=== PATIENT | female | born 1955 | race Caucasian/White ===

== ENCOUNTER 2022-12-17 09:55 | Outpatient (CLI) | payer MEDICARE, BC, SELFPAY ==
--- NOTE | 2022-12-17 10:15 | CRLHL7_ITS ---
For Patients: As a result of the Century Cures Act, medical imaging exams and procedure reports are released immediately into your electronic medical record. You may view this report before your referring provider. If you have questions, please contact your health care provider. BILATERAL SCREENING MAMMOGRAM WITH COMPUTER-AIDED DETECTION AND TOMOSYNTHESIS TECHNIQUE: CC and MLO views were obtained. These mammographic images have been obtained using full-field digital technique. These mammographic images were interpreted with the benefit of computer-aided detection. Breast tomosynthesis was used in this interpretation. COMPARISON FILM: 07/31/21, 07/12/20, 03/01/19. FINDINGS: There are scattered areas of fibroglandular density. IMPRESSION: There is no radiographic evidence for malignancy. ASSESSMENT: BI-RADS Category 2: Benign RECOMMENDATION: Routine screening mammogram in 1 year. A lay language report of this examination will be provided to the patient. DARIUS SYKES M.D. Diagnostic Radiologist [email or web address] Transcribed: 12/17/2022, 5:[address]/Dictated by: Darius Sykes MD @ 12/17/2022 11:15:00 AM (Electronically Signed)
== END 2022-12-17 09:56 | disposition home or self-care (01) ==
PROVIDERS: PCP Family Medicine; Visit Provider Family Medicine
DX: Z12.31 Encounter for screening mammogram for malignant neoplasm of breast (principal)
CPT/HCPCS: 77063; 77067

== ENCOUNTER 2023-02-17 09:45 | Outpatient (RCR) | payer MEDICARE, BC, SELFPAY ==
--- NOTE | 2023-01-31 14:15 | PT.OPE ---
PT [facility] Out[facility] Eval PT [facility] Outpatient Eval Start: 01/29/23 09:28 Freq: Status: Active Protocol: Document 01/29/23 09:29 HN (Rec: 01/30/23 09:08 HN [id number]) E-signed By Bryanna Vazquez DPT Physical Therapy Outpatient Evaluation Insurance Information Insurance Name Blue Cross/Blue Shield Medical Diagnosis Lumbago with sciatica, right side ? M54.41 Treating Diagnosis M25. 551: Pain in right hip. M25. 651 for Stiffness of right hip Referring MD Dilan Navarro MD Subjective Subjective Patient is a 67 year old fe/ male with pain in R glute and radiating symptoms down lateral thigh to lateral knee. Patient denies mechanism of injury but reports symptoms may have began after long drive back from [place]. Patient reports symptoms are primarily on R but has mild symptoms on L. Patient describes pain and dull and sometimes burning and thigh pain and lateral frias pain. Aggravating factors: sitting 30 minute, nights waking up, lying on R, pain with stairs, pain with walking Easing Factors: digging in garden, ice, heat, tylenol Prior level of function: independent and unlimited with all ADLs and IADLs Current limitations: sitting 30 minute, nights waking up, lying on R, pain with stairs, pain with walking Red flags: denies hx of cancer , recent infection, numbness/ tingling, bowel/bladder changes Imaging: no imaging reported PMH: Hx of cervical spine pain 20+ years otherwise unremarkable Social History: retired, enjoys gardening, swimming, baking, biking, goes up to cabin for entire month of March Pain Comments Current: 11/22 Best: 010 Worst: 510 Current Work Status Retired Occupation Retired Precautions Treatment Precautions/Contraindications no precautions/ contraindications identified Weight Bearing Status Full Weight Bearing Therapy Limitations/Systems Review Not Limited Objective Other/Pertinent Objective Lumbar range of motion (% full range of motion) Flexion: 100 Extension: 100 Left sidebendin Right sidebendin Left rotation: 100 Right rotation: 100 Repeated flexion: no reproduction of symptoms Repeated extension: no reproduction of symptoms Hip range of motion is grossly intact with increased tenderness with external rotation of right hip Manual muscle testing: Hip flexion: 5/5 L , 5/5 R Hip abduction: 5/5 L , 4/5 R Hip adduction: 5/5 L , 4/5 R Hip extension: 5/5 L , 4/5 R Knee extension: 5/5 L , 5/5 R Knee flexion: 5/5 L , 5/5 R Special tests: Slump: negative bilaterally Straight leg raise: negative bilaterally LATASHA: reproduction of symptoms on R FADIR: negative bilaterally SCOUR: negative bilaterally Laslett cluster: negative Sensation/Reflexes: Patellar reflex: normal Joint mobility: lumbar mobility is normal with with PA mobilizations with no reproduction of symptoms Palpation: increased tenderness along R glute med/ piriformis, ITB with palpation , reproduction of symptoms Functional Test Performed & Score HOOS Score: 57.5 % Assessment Assessment/Impression Patient is a 67 year old with complaints of right sided hip pain and radiating symptoms down right LE. Patient demonstrates impaired mild decrease in hip strength, increased pain with lying on R side, prolonged sitting, and ascending/descending stairs, and pain with palpation consistent with R glute med tendinopathy with possible contributor from ITB. The impairments impact the patients tolerance with prolonged sitting, ambulation, ascending and descending stairs, and sleeping restfully . Patient will benefit from skilled physical therapy to address the impairments and activity limitations listed above. Prognostic factors include baseline strength, patient motivation and few comorbidities. Primary Functional Limitations Sitting, sleeping on R LE, ascending/descending stairs, ambulation Plan of Care Rehabilitation Potential Good Physical Therapy Goals Short term goals (4 weeks, ) 1. Patient will tolerate standing >60 minutes with no increase in pain order to complete ADLs. 2. Patient will report <3/10 pain in order to demonstrate decreased pain and disability related to symptoms. 3. Patient will demonstrate independence with HEP in order to manage symptoms independently at home. jail goals 12 weeks ( 04/23) 1. Patient will demonstrate HOOS score of 75% or above to demonstrate decrease pain and irritability related to symptoms. 2. Patient will reports less than 2 sleep disturbances due to hip pain per week to improve restful and restorative sleep 3. Patient will report <2/10 pain in order to demonstrate decreased pain and disability related to symptoms. 4. Patient will tolerate ascending/descending 1 flight of stairs with no increase in pain in order to return to prior level of function. Coordination/Communication With Referral Source Treatment Plan/Direct Interventions Joint Mobilization,Manual Therapy,Neuromuscular Re-ed, Self-Care/Home Management, Therapeutic Activities, Therapeutic Exercises,Traction (Mechanical) Frequency/Duration 1-2x/week for up to 12 weeks, patient will be gone march, unable to attend appointments Patient Will Be Discharged From Therapy Completion of LTG(s),Skills Plateau,Independent w/HEP Evaluation Billing Untimed Code Treatment Minutes 20 Complexity Low Certification Information Physician Comment/Change : Physician NPI Number #
== END 2023-03-24 16:01 | disposition home or self-care (01) ==
PROVIDERS: PCP Family Medicine; Visit Provider Physician Assistant Medical
DX: M54.41 Lumbago with sciatica, right side (principal); M25.551 Pain in right hip; M25.651 Stiffness of right hip, not elsewhere classified; Z51.89 Encounter for other specified aftercare
CPT/HCPCS: 97110; 97161

== ENCOUNTER 2023-04-29 07:30 | Outpatient (CLI) | payer MEDICARE, BC, SELFPAY | END 2023-04-29 07:31 | disposition home or self-care (01) | PROVIDERS: PCP Physician Assistant Medical; Visit Provider Family Medicine | DX: R53.83 Other fatigue (principal); L65.9 Nonscarring hair loss, unspecified; Z83.3 Family history of diabetes mellitus; Z13.21 Encounter for screening for nutritional disorder; Z13.29 Encounter for screening for other suspected endocrine disorder; R63.1 Polydipsia | CPT/HCPCS: 80053; 82306; 84439; 84443 ==

== ENCOUNTER 2023-07-29 09:45 | Outpatient (RCR) | payer MEDICARE, BC, SELFPAY ==
--- NOTE | 2023-07-01 15:43 | PT.OPEX ---
PT [facility] Outpatient Eval PT [facility] Outpatient Eval Start: 07/01/23 07:48 Freq: Status: Active Protocol: Document 07/01/23 07:48 AMS (Rec: 07/01/23 15:39 AMS [id number]) E-signed By Breanna Otero PT Physical Therapy Outpatient Evaluation Insurance Information Recert Due Date 09/24/23 Insurance Name Medicare B,Blue Cross/Blue Shield Medical Diagnosis Right knee osteoarthritis Treating Diagnosis Right knee pain Difficulty walking Muscle weakness Referring MD Ronny Webb Freedom Xiao is a new patient in my office today. She is a pleasant 67yr old female. Presents with right knee pain. She states she has had pain developing over the medial aspect of the right knee for 1 month. Worsening with increased activities. Relieved with rest. No numbness or tingling. No specific traumatic event. She is inquiring about possible physical therapy referral. - Ronny Webb, 06/10/23, confirmed by patient Patient presents to physical therapy with one-year history of bilateral knee pain. It got worse around 2 months ago in her right knee gradually, but no injury or change in routine at this time. She had X-rays done here at [facility], which showed medial compartment osteoarthritis. She does not recall any history of knee injury. Endorses clicking in knee, but no significant locking or catching. She feels like she has to concentrate to walk normally due to pain. She localizes the pain to the medial right knee and sometimes radiates up into quad and down into anterior leg. This impacts her sleep at night/getting comfortable. Denies numbness or tingling. Easing factors include ibuprofen for sleep and icing. Past medical medical history significant for right-sided sciatica 6 months ago, which she was treated for here and resolved for the most part. She still does these exercises regularly (side stepping, bridges, and clamshells). She has also tried the chiropractor, which did not provide lasting relief for her knee. Current exercise includes swimming 1x/week, but would like to get to 5x/week. Freestyle and backstroke variations do not bother her knee, but sidestroke does with whip kick (pain will last into next day after doing this ). Functional limitations/ aggravating factors include walking more than a few steps, swimming sidestroke, kneeling , climbing up and down stairs, squatting, and standing longer periods. She would like to avoid knee replacement if possible. Her goals are to be pain-free and improve her gait . Pain Comments 6/10 with walking, 9/10 at worst 0/10 at best Date of Last Physician Visit 06/10/23 Current Work Status Retired Preferred Name Ninoska Precautions Treatment Precautions/Contraindications None Objective Other/Pertinent Objective GAIT ASSESSMENT: Ambulates with mild genu varum on right > left, heel-toe gait, and mild antalgic nature. No gaid aid. OBSERVATION: Swelling: Sweep test - bilaterally; potentially mild swelling distal to joint line bilaterally No bruising noted. FUNCTIONAL MOBILITY Double leg squat: Pain at 90 degrees in medial knee KNEE ROM R: 0-0-140 L: 0-0-140 HIP ROM Within normal limits and pain- free LLE MMT: Hip flexion: R 5/5 L 5/5 Hip abduction: R 4+/5 L 4/5 Hip extension: R 4+/5 L 4/5 Knee flexion: R 5/5 L 5/5 Knee extension: R 5/5 L 5/5 END RANGE QUAD CONTROL Straight leg raise: To 90 deg, pain in medial knee on right SPECIAL TESTS Knee Ligamentous: -Varus 0: - -Varus 30: - -Valgus 0: - -Valgus 30: - Knee Meniscus: -Deep Knee Bend: + right -Knee Hyperextension: - -Du?s: + right -Joint Line Palpation: + right JOINT MOBILITY/PALPATION Tenderness to palpation along medial and lateral joint lines on right, none on left. TTP to proximal central quad on right. TX: Patient was educated on anatomy, physiology as it relates to current condition and HEP with use of handout/ [place]. Patient verbalizes understanding and agrees with POC/goals Education: -Soreness rules with goal of symptoms returning to baseline within 24 hours and that evening -Discussed benefit of comfortable, non-impact forms of aerobic exercise that pt enjoys and do not aggravate knee (stationary bike, swimming freestyle/backstroke, etc) Patient was instructed in the following exercises to improve strength, tissue tolerance, and/or mobility with verbal/ tactile cues as needed: Access Code: [email or web address] URL: [email or web address] Date: 07/01/2023 Prepared by: Breanna Otero Exercises - Clamshell with Resistance - 1 x daily - 4 x weekly - 3 sets - 10-12 reps - Supine Double Leg Bridge on Box - 1 x daily - 4 x weekly - 3 sets - 10-12 reps - Wall Quarter Squat - 1 x daily - 4 x weekly - 3 sets - 30-45 seconds hold -Also trialed 4 step ups x 10 reps (increased knee pain 7/ 10) and standing DL RDL with 9 lb kettlebell (increased neck discomfort) Functional Test Performed & Score LEFS: 34/80 = 42.5% Assessment Assessment/Impression Pt is a 67 -year-old female who presents with concerns of worsening chronic right knee pain and moderate severity and irritability. Signs and symptoms are likely indicating / consistent with right knee osteoarthritis with potential meniscal involvement. On exam, patient also demonstrates notable objective findings including pain with end-range knee flexion, impaired gait, pain with palpation to medial joint line, and decreased strength, leading to difficulties with walking more than a few steps, swimming sidestroke, kneeling, climbing up and down stairs, squatting , and standing longer periods. Pt's pain is primarily with weightbearing activities. Discussed role of physical therapy given nature and degree of symptoms and other treatment options if indicated in the future. Patient is appropriate for skilled physical therapy services to address the above deficits. Pt was agreeable with plan of care and goals established. Primary Functional Limitations walking more than a few steps, swimming sidestroke, kneeling , climbing up and down stairs, squatting, and standing longer periods. Plan of Care Rehabilitation Potential Good Physical Therapy Goals In 2 sessions: Pt will demonstrate consistent HEP compliance to ensure progress in reaching established goals during course of care. In 8 sessions: Pt will be able to walk up to or >1 block with <2/10 pain. Pt will be able to stand >10 min with <2/10 pain for improved ability to perform recreational activities. Pt will be able to perform sidestroke with <2/10 pain. Coordination/Communication With Referral Source Treatment Plan/Direct Interventions Gait Training,Joint Mobilization,Manual Therapy, Neuromuscular Re-ed,Self-Care/ Home Management,Therapeutic Activities,Therapeutic Exercises Frequency/Duration 1x/week for 8-10 sessions Patient Will Be Discharged From Therapy Completion of LTG(s), Independent w/HEP, Independently Progressing Evaluation Billing Untimed Code Treatment Minutes 30 Complexity Low Certification Information Initial Certification Date 07/01/23 Ending Certification Date 09/24/23 Provider Signature Shows Agreement With POC & Medical Necessity Physician Signature & Date Requested Please Sign/Date Here Physician Comment/Change : Physician NPI Number #
== END 2023-07-29 17:00 | disposition home or self-care (01) ==
PROVIDERS: PCP Family Medicine; Visit Provider Orthopaedic Surgery Sports Medicine
DX: M17.11 Unilateral primary osteoarthritis, right knee (principal); Z51.89 Encounter for other specified aftercare
CPT/HCPCS: 97110; 97161

== ENCOUNTER 2023-12-09 15:22 | Outpatient (CLI) | payer MEDICARE, BC, SELFPAY ==
--- NOTE | 2023-12-09 16:00 | CT_ITS ---
Patient: KARINA REYNOLDS Facility:?[facility] Patient ID:?[id number] Site Patient ID:?[id number]. Site :?1955 Study:?CT-Chest WITHOUT-12/09/2023 3:52:24 PM Ordering Physician:MADDY Final Report: INDICATION: Chronic cough TECHNIQUE: CT chest without contrast. COMPARISON: 12/04/2023 chest x-ray FINDINGS: Lungs and pleura: Irregular and tree-in-bud nodularity, bronchial wall thickening, and scattered mucous plugging greatest in the right middle lobe and lingula. Findings are typical for chronic infection such as atypical mycobacterial infection. Heart and vasculature: Heart size is normal. Mild pericardial thickening. Thoracic aorta and pulmonary artery are normal in caliber. Lymph nodes/mediastinum: 17 mm low-density nodule along the inferior pole of the left thyroid lobe, possibly separate from the thyroid. Chest wall: No masses. Upper abdomen: Normal. Bones: Unremarkable for age. IMPRESSION: 1. Findings of chronic airways infection, particularly atypical mycobacterial infection. Consider six-month follow-up CT. 2. 17 mm low-density nodule adjacent to the inferior left thyroid gland. Recommend thyroid ultrasound. Please note that all CT scans at this facility use dose modulation, iterative reconstruction, and/or weight-based dosing when appropriate to reduce radiation dose to as low as reasonably achievable. Dictated by Kev Barraza MD @ 12/10/2023 10:26:47 AM Signed by:?Kev Barraza MD @12/10/2023 10:26:47 AM (Electronic Signature)
== END 2023-12-09 15:23 | disposition home or self-care (01) ==
LOC: CT 15:23
PROVIDERS: PCP Family Medicine; Visit Provider Physician Assistant Medical
DX: R05.3 Chronic cough (principal); E04.1 Nontoxic single thyroid nodule
CPT/HCPCS: 71250

== ENCOUNTER 2023-12-24 07:11 | Outpatient (CLI) | payer MEDICARE, BC, SELFPAY ==
--- NOTE | 2023-12-24 07:15 | US_ITS ---
Patient: KARINA REYNOLDS Facility:?[facility] Patient ID:?[id number] Site Patient ID:?[id number]. Site :?1955 Study:?US-Thyroid -12/24/2023 7:35:37 AM Ordering Physician:ALEXANDRO MCCLURE Final Report: CLINICAL HISTORY: Thyroid nodule TECHNIQUE: Miranda-scale and color Doppler images were acquired of the thyroid gland. FINDINGS: The right thyroid lobe measures 3.9 x 1.5 x 1.3 centimeters. The left thyroid lobe measures 5.3 x 1.4 x 1.3 centimeters. 1.7 centimeter simple appearing cyst left inferior thyroid lobe TR 1. IMPRESSION: Simple cyst in the left inferior thyroid lobe. ACR TI-RADS [email or web address] TR1: Benign No FNA TR2: Not Suspicious No FNA TR3: Mildly Suspicious FNA if greater than or equal to 2.5 cm Follow if greater than or equal to 1.5 cm TR4: Moderately Suspicious FNA if greater than or equal to 1.5 cm Follow if greater than or equal to 1 cm TR5: Highly Suspicious FNA if greater than or equal to 1 cm Follow if greater than or equal to 0.5 cm Dictated by Val Lopes MD @ 12/25/2023 7:01:32 AM Signed by:?Val Lopes MD @12/25/2023 7:01:32 AM (Electronic Signature)
--- OUTSIDE RECORDS SUMMARY | 2023-12-24 07:15 | XMS_ITS | Clinical Summary ---
Author Name Unknown Organization [facility] Address [address] [place] [address] Care Team Providers Care Systems Software Developer Name Role Phone Reina Trammell MD Primary Care Provider + [phone] Source Comments You are receiving this document as you are listed as the primary care provider,follow-up provider, or the patient has been referred to you for consultation.This is in compliance with the Medicare andMedicaid EHR Incentive Program,which states Providers who transition their patient to another setting of careor provider of care or refers their patient to another provider of care shouldprovide summary care record for each transition of care or referral. [facility] Allergies Active Allergy Reactions Criticality Noted Date Comments Sulfamethoxazole-Trimethoprim Rash 2016 Sulfa Antibiotics Rash 02/19/2016 Medications Medication Sig Dispensed Refills Start Date End Date Status Zinc Acetate 50 MG Take 50 mg by mouth as needed. 03/05/2016 Active Active Problems Problem Noted Date Diagnosed Date Apnea, sleep 02/19/2016 Immunizations Name Administration Dates Next Due Zoster (Zostavax) 11/28/2015 Social History Tobacco Use Types Packs/Day Years Used Date Smoking Tobacco: Never Smokeless Tobacco: Never Alcohol Use Standard Drinks/Week Comments Yes 4 (1 standard drink = 0.6 oz pur e alcohol) Sex and Gender Information Value Date Recorded Sex Assigned at Not on file Gender Identity Not on file Sexual Orientation Not on file Last Filed Vital Signs Vital Sign Reading Time Taken Comments Blood Pressure 116/72 12/16/2016 10:07 AM CDT Pulse 60 12/16/2016 10:07 AM CDT Temperature 36.4 ??C (97.5 ??F) 02/19/2016 10:53 AM C DT Respiratory Rate 16 12/16/2016 10:07 AM CDT Oxygen Saturation 97% 03/05/2016 2:14 PM CDT Inhaled Oxygen Concentration - - Weight 60.3 kg (133 lb) 12/16/2016 10:07 AM CDT Height - - Body Mass Index - - Plan of Treatment Upcoming Encounters Date Type Department Care Team (Late st Contact Info) Description 04/06/2024 10:00 AM CDT Appointment PULMONARY LAB AT [address] [address] 04/08/2024 10:45 AM CDT Appointment [facility] [address] [place] [address] [phone] Shobha Mcarthur MD [address] [facility] [address] [place] [id number] Health Maintenance Due Date Last Done Comments Colon Cancer Screening Plan Due 1955 Hep C Screening (Preventive Services) 1955 Mammogram 1955 Adult Preventive Visit 11/27/1971 DTaP/Tdap/Td (1 - Tdap) 1972 Cholesterol 1998 Zoster/Shingles (2 of 3) 01/23/2016 11/28/2015 Pneumococcal 65+ Yrs (1 - PCV) 2018 COVID-19 Vaccine (1 - 2022-2 4 season) 2023 Influenza (#1) 2023 HepA Aged Out No longer eligi ble based on patient's age to complete this topic HepB Aged Out No longer eligi ble based on patient's age to complete this topic Hib Aged Out No longer eligi ble based on patient's age to complete this topic IPV (Polio) Aged Out No longer eligi ble based on patient's age to complete this topic MCV4 Aged Out No longer eligi ble based on patient's age to complete this topic Care Teams Systems Software Developer Relationship Specialty Start [place] [id number] [place] [id number] PCP - General 03/05/16
== END 2023-12-24 07:12 | disposition home or self-care (01) ==
LOC: US 07:13
PROVIDERS: PCP Family Medicine; Visit Provider Physician Assistant Medical
DX: E04.1 Nontoxic single thyroid nodule (principal)
CPT/HCPCS: 76536

== ENCOUNTER 2024-02-23 07:36 | Outpatient (CLI) | payer MEDICARE, BC, SELFPAY ==
--- OUTSIDE RECORDS SUMMARY | 2024-02-23 07:38 | XMS_ITS | Patient Health Record ---
Author Organization [facility] Address [address] [place] [address] [address], [place] [address] Care Team Providers Care Automotive Service Director Name Role Phone JANET SONG Unavailable [phone] Reason For Referral No Information Medications Medication SIG (Take, Route, Fr equency, Duration) Notes Start Date End Date Status valACYclovir HCl 1 GM Take by mouth estiven y DAILY. Do not substitute. Oral 0 Active Problems Problem Type SNOMED Code ICD Code Onset Dates Problem Status W/U Status Risk Notes Problem Cervicalgia (81110661) Cervicalgia (M54.2) 2019 Active confirmed Cervicalgia flares up on occasion depending on activity Problem Abnormal findings on diagnostic imaging of skull and head (021929958) Abnormal findings on diagnostic imaging of skull and head, not elsewhere classified (R93.0) 2019 Active confirmed Abnormal findings on diagnostic imaging of skull and head, not elsewhere classified Problem Screening for cancer (74988365) Encounter for screening for malignant neoplasm of oral cavity (Z12.81) 2019 Active confirmed Encounter for screening for malignant neoplasm of oral cavity Problem Screening for cancer (22875417) Encounter for screening for malignant neoplasm of other sites (Z12.89) 2019 Active confirmed Encounter for screening for malignant neoplasm of other sites Problem Arthralgia of temporomandibular joint (30988926) Arthralgia of bilateral temporomandibul ar joint (M26.623) 2019 Active confirmed Arthralgia of bilateral temporomandibula r joint Problem Articular disc disorder of temporomandibular joint (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) 2019 Active confirmed Articular disc disorder of bilateral temporomandibula r joint improving Problem Muscle pain (49863332) Myalgia, unspecified site (M79.10) 2019 Active confirmed Encounters Encounter Location Date Provider Diagnosis [address] [place] [address] 12/08/2023 JANET SONG Cervicalgia M54.2 an d 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 M26.633 [place] [address] [place] [address] 12/25/2023 JANET SONG Cervicalgia M54.2 an d 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 M26.633 Assessments Encounter Date Diagnosis (ICD Code) Assessment Notes T reatment Notes Treatment Clinical Notes 12/08/2023 Cervicalgia (ICD-10 - M54.2) Cervicalgia flares up on occasion depending on activity 12/08/2023 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
--- OUTSIDE RECORDS SUMMARY | 2024-02-23 07:38 | XMS_ITS | Encounter Summary ---
[facility] Organization [facility] Address [address], [place] [address] Care Team Providers Care Senior Materials Scientist Name Role Phone Reina Trammell MD Primary Care Provider [phone] Reason for Referral * Procedure/Equipment (Routine) - Incomplete Specialty Diagnoses / Procedures Referred By Contac t Referred To Contact Diagnoses Cough, unspecified type Procedures XR Chest 2 Views Shobha Mcarthur MD [address] [address] Referral ID Status Reason Start Date Expiration Date V isits Requested Visits Authorized [id number] Incomplete 07/15/2024 10/14/2025 1 1 Reason for Visit * Reason Comments CONSULT Encounter Details Date Type Department Care Team (Late st Contact Info) Description 02/16/2024 Notes/Orders [facility] [address] [place] [address] Shobha Mcarthur MD [address] [address] Cough, unspecified type (Primary Dx) Social History Tobacco Use Types Packs/Day Years Used Date Smoking Tobacco: Never Smokeless Tobacco: Never Alcohol Use Standard Drinks/Week Comments Yes 4 (1 standard drink = 0.6 oz pur e alcohol) Sex and Gender Information Value Date Recorded Sex Assigned at Not on file Gender Identity Not on file Sexual Orientation Not on file documented as of this encounter Plan of Treatment Upcoming Encounters Date Type Department Care Team (Late st Contact Info) Description 07/15/2024 11:00 AM CDT Appointment [facility] LAB AT [place] [address] [place] [address] 07/15/2024 1:00 PM CDT Office Visit Specialty Center 3931 Pulmonary Medicine [address] [place] [address] Shobha Mcarthur MD 3931 [facility] [address] [place] [address] Scheduled Orders Name Type Priority Associated Diagnoses Orde r Schedule XR Chest 2 Views Imaging New Routine Cough, unspecified type Expected: 07/15/2024 (Approximate), Expires: 07/15/2025 documented as of this encounter Visit Diagnoses Diagnosis Cough, unspecified type- Primary documented in this encounter Care Teams Senior Materials Scientist Relationship Specialty [place] [address] [address] [address] [place] [address] PCP - General 03/05/16 documented as of this encounter
--- OUTSIDE RECORDS SUMMARY | 2024-02-23 07:38 | XMS_ITS | Clinical Summary ---
Author Organization [facility] Address [address] [place] [address] Care Team Providers Care Ammonium Nitrate Crystallizer Name Role Phone Reina Trammell MD Primary Care Provider + [phone] Source Comments You are receiving this document as you are listed as the primary care provider,follow-up provider, or the patient has been referred to you for consultation.This is in compliance with the Medicare andT[facility]caraw[facility] Hospitalcaid EHR Incentive Program,which states Providers who transition their patient to another setting of careor provider of care or refers their patient to another provider of care shouldprovide summary care record for each transition of care or referral. [facility] Biom[employer] GroupNor-Le[facility] General HospitalConrig [facility] Allergies Active Allergy Reactions Criticality Noted Date Comments Sulfamethoxazole-Trimethoprim Rash 2016 Sulfa Antibiotics Rash 02/19/2016 Medications Medication Sig Dispensed Refills Start Date End Date Status Zinc Acetate 50 MG Take 50 mg by mouth as needed. 03/05/2016 Active Active Problems Problem Noted Date Diagnosed Date Apnea, sleep 02/19/2016 Encounters Date Type Department Care Team Description 02/16/2024 Notes/Orders [facility] [address] [place] [address] Shobha Mcarthur MD Cough, unspecified type (Primary Dx) 01/20/2024 Orders Only [facility] DE[facility] ProviderHolland MD 01/20/2024 Orders Only [facility] ProviderHolland MD from Last 3 Months Immunizations Name Administration Dates Next Due Zoster [...] 11:00 AM CDT Appointment PULMONARY LAB AT [address] [id number] 07/15/2024 1:00 PM CDT Office Visit Specialty Center 3931 Pulmonary Medicine 3931 [place], [place] [phone] Shobha Mcarthur MD 3931 [facility] [address] [place] [phone] Health Maintenance Due Date Last Done Comments Colon Cancer Screening Plan Due 1955 Hep C Screening (Preventive Services) 1955 Mammogram 1955 Adult Preventive Visit 11/27/1971 DTaP/Tdap/Td (1 - Tdap) 1972 Cholesterol 1998 Zoster/Shingles (2 of 3) 01/23/2016 11/28/2015 Dexa 2018 Pneumococcal 65+ Yrs (1 - PCV) 2018 COVID-19 Vaccine ( - 2022-2 4 season) 2023 Influenza (Season Ended) 2024 HepA Aged Out No longer eligi ble [...] on patient's age to complete this topic Procedures Procedure Name Priority Date/Time Associated Diagnosis Comments CT 01/20/2024 IMAGING 01/20/2024 from Last 3 Months Results * IMAGING (01/20/2024) Anatomical Region Laterality Modality Other Interface Provider DUMMY/OTHER/AR * CT (01/20/2024) Anatomical Region Laterality Modality Other Interface Provider DUMMY/OTHER/AR from Last 3 Months Care Teams Ammonium Nitrate Crystallizer Relationship Specialty [place] [address] [place] [address] [address] PCP - General 03/05/16
--- OUTSIDE RECORDS SUMMARY | 2024-02-23 07:39 | XMS_ITS | Encounter Summary ---
Author Organization [facility] Address [address] [place] [address] Care Team Providers Care Appellate Court Clerk Name Role Phone Reina Trammell MD Primary Care Provider [phone] Encounter Details Date Type Department Care Team (Latest Contact Info) Description 01/20/2024 Orders Only [facility] DEPARTMENT ProviderHolland MD [place] [address] Social History Tobacco Use Types Packs/Day Years [...] 11:00 AM CDT Appointment PULMONARY LAB AT [address] [address] 07/15/2024 1:00 PM CDT Office Visit Specialty Center 3931 Pulmonary Medicine [address] [place] [phone] Shobha Mcarthur MD [facility] [address] [place] [address] documented as of this encounter Procedures Procedure Name Priority Date/Time Associated Diagnosis Comments IMAGING 01/20/2024 documented in this encounter Results * IMAGING (01/20/2024) Anatomical Region Laterality Modality Other Interface Provider MD DUMMY/OTHER/AR documented in this encounter Visit Diagnoses Not on filedocumented in this encounter Care Teams Appellate Court Clerk Relationship Specialty Start [place] [address] [place] [address] PCP - General 03/05/16 documented as of this encounter
--- OUTSIDE RECORDS SUMMARY | 2024-02-23 07:39 | XMS_ITS | Encounter Summary ---
Author Organization [facility] Address [address] [place] [address] Care Team Providers Care Laboratory Mechanic Helper Name Role Phone Reina Trammell MD Primary Care Provider Encounter Details Date Type Department Care Team (Latest Contact Info) Description 01/20/2024 Orders Only [facility] DEPARTMENT ProviderHolland MD [place] [address] Social History Tobacco Use Types Packs/Day Years [...] 11:00 AM CDT Appointment PULMONARY LAB AT [address] [address] 07/15/2024 1:00 PM CDT Office Visit Specialty Center 3931 Pulmonary Medicine [address] [place] [phone] Shobha Mcarthur MD [address] [place] [address] [place] [address] [phone] documented as of this encounter Procedures Procedure Name Priority Date/Time Associated Diagnosis Comments CT 01/20/2024 documented in this encounter Results * CT (01/20/2024) Anatomical Region Laterality Modality Other Interface Provider MD DUMMY/OTHER/AR documented in this encounter Visit Diagnoses Not on filedocumented in this encounter Care Teams Laboratory Mechanic Helper Relationship Specialty [place] [address] [address] [address] PCP - General 03/05/16 documented as of this encounter
--- NOTE | 2024-02-23 07:45 | CRLHL7_ITS ---
For Patients: As a result of the Century Cures Act, medical imaging exams and procedure reports are released immediately into your electronic medical record. You may view this report before your referring provider. If you have questions, please contact your health care provider. BILATERAL SCREENING MAMMOGRAM WITH COMPUTER-AIDED DETECTION AND TOMOSYNTHESIS TECHNIQUE: CC and MLO views were obtained. These mammographic images have been obtained using full-field digital technique. These mammographic images were interpreted with the benefit of computer-aided detection. Breast Tomosynthesis was used in this interpretation. COMPARISON FILM: 12/17/22, 07/31/21, 07/12/20. FINDINGS: There are scattered areas of fibroglandular density. IMPRESSION: There is no radiographic evidence for malignancy. ASSESSMENT: BI-RADS Category 1: Negative RECOMMENDATION: Routine screening mammogram in 1 year. A lay language report of this examination will be provided to the patient. Darius Almendarez M.D. Diagnostic Radiologist [email or web address] SP/Dictated by: Darius Almendarez MD @ 02/23/2024 8:40:00 AM (Electronically Signed)
== END 2024-02-23 07:37 | disposition home or self-care (01) ==
PROVIDERS: PCP Family Medicine; Visit Provider Physician Assistant Medical
DX: Z12.31 Encounter for screening mammogram for malignant neoplasm of breast (principal)
CPT/HCPCS: 77063; 77067

== ENCOUNTER 2024-04-26 08:53 | Outpatient (CLI) | payer MEDICARE, BC, SELFPAY ==
--- OUTSIDE RECORDS SUMMARY | 2024-04-30 01:39 | XMS_ITS | Encounter Summary ---
Author Organization [facility] Address [address] [address] Care Team Providers Care Sheet Metal Shop Helper Name Role Phone Reina Trammell MD Primary Care Provider [phone] Reason for Referral * Procedure/Equipment (Routine) - Incomplete Specialty Diagnoses / Procedures Referred By Contac t Referred To Contact Diagnoses Cough, unspecified type Procedures XR Chest 2 Views Shobha Mcarthur MD [address] [address] Referral ID Status Reason Start Date Expiration Date V isits Requested Visits Authorized [id number] Incomplete 07/15/2024 10/14/2025 1 1 Reason for Visit * Reason Comments CONSULT Encounter Details Date Type Department Care Team (Late st Contact Info) Description 02/16/2024 Notes/Orders [facility] [address] [place] [address] Shobha Mcarthur MD [address] [address] Cough, unspecified type (Primary Dx) [...] 11:00 AM CDT Appointment [facility] [address] [place] [address] 07/15/2024 1:00 PM CDT Office Visit Specialty Center 3931 Pulmonary Medicine 3931 [place] [address] Shobha Mcarthur MD 3931 [facility] [address] [place] [address] Scheduled Orders Name Type Priority Associated Diagnoses Orde r Schedule XR Chest 2 Views Imaging New Routine Cough, unspecified type Expected: 07/15/2024 (Approximate), Expires: 07/15/2025 documented as of this encounter Visit Diagnoses Diagnosis Cough, unspecified type- Primary documented in this encounter Care Teams Sheet Metal Shop Helper Relationship Specialty [place] [address] [address] [address] PCP - General 03/05/16 documented as of this encounter
--- OUTSIDE RECORDS SUMMARY | 2024-04-30 01:39 | XMS_ITS | Patient Health Record ---
Author Organization [facility] Address [address] [place] [address] [address], [place] [address] Care Team Providers Care Packer Operator Automatic Name Role Phone JANET SONG Unavailable [phone] Reason For Referral No Information Medications Medication SIG (Take, Route, Fr equency, Duration) Notes Start Date End Date Status valACYclovir HCl 1 GM Take by mouth estiven y DAILY. Do not substitute. Oral 0 Active Problems Problem Type SNOMED Code ICD Code Onset Dates Problem Status W/U Status Risk Notes Problem Cervicalgia (84098724) Cervicalgia (M54.2) 2019 Active confirmed Cervicalgia flares up on occasion depending on activity Problem Abnormal findings on diagnostic imaging of skull and head (456492776) Abnormal findings on diagnostic imaging of skull and head, not elsewhere classified (R93.0) 2019 Active confirmed Abnormal findings on diagnostic imaging of skull and head, not elsewhere classified Problem Screening for cancer (99809984) Encounter for screening for malignant neoplasm of oral cavity (Z12.81) 2019 Active confirmed Encounter for screening for malignant neoplasm of oral cavity Problem Screening for cancer (28368044) Encounter for screening for malignant neoplasm of other sites (Z12.89) 2019 Active confirmed Encounter for screening for malignant neoplasm of other sites Problem Arthralgia of temporomandibular joint (74372530) Arthralgia of bilateral temporomandibul ar joint (M26.623) 2019 Active confirmed Arthralgia of bilateral temporomandibula r joint Problem 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 Active confirmed Articular disc disorder of bilateral temporomandibula r joint improving Problem Muscle pain (03695516) Myalgia, unspecified site (M79.10) 2019 Active confirmed Encounters Encounter Location Date Provider Diagnosis [address] [place] [address] 12/08/2023 JANET SONG Cervicalgia M54.2 an d 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 M26.633 [place] [address] [place] [address] 12/25/2023 JANET SONG Cervicalgia M54.2 an d [...] Treatment Next Appt Details Provider Name:JANET Roque, 05/03/2024 07:10:00 AM, [address] [facility] [address], [place], [address],
--- OUTSIDE RECORDS SUMMARY | 2024-04-30 01:39 | XMS_ITS | Clinical Summary ---
Author Organization [facility] Address [address] [place] [address] Care Team Providers Care Computer Information Science Professor Name Role Phone Reina Trammell MD Primary Care Provider [phone] Source Comments You are receiving this document as you are listed as the primary care provider,follow-up provider, or the patient has been referred to you for consultation.This is in compliance with the Medicare andMagruder Memorial Hospitalcaid EHR Incentive Program,which states Providers who transition their patient to another setting of careor provider of care or refers their patient to another provider of care shouldprovide summary care record for each transition of care or referral. [employer]Fort [email or web address] Allergies Active Allergy Reactions Criticality Noted Date Comments Sulfamethoxazole-Trimethoprim Rash 2016 Sulfa Antibiotics Rash 02/19/2016 Medications Medication Sig Dispensed Refills Start Date End Date Status Zinc Acetate 50 MG Take 50 mg by mouth as needed. 03/05/2016 Active Active Problems Problem Noted Date Diagnosed Date Apnea, sleep 02/19/2016 Encounters Date Type Department Care Team Description 02/16/2024 Notes/Orders [facility] [address] [place] [address] Shobha Mcarthur MD Cough, unspecified type (Primary Dx) from Last 3 Months Immunizations Name Administration [...] 11:00 AM CDT Appointment PULMONARY LAB AT [address] [id number] 07/15/2024 1:00 PM CDT Office Visit Specialty Center 3931 Pulmonary Medicine [address]31 [place], [place] [phone] Shobha Mcarthur MD 3931 [facility] [address] [place], [place] [phone] Health Maintenance Due Date Last Done Comments Colon Cancer Screening Plan Due 1955 Hep C Screening (Preventive Services) 1955 Mammogram 1955 Adult Preventive Visit 11/27/1971 DTaP/Tdap/Td (1 - Tdap) 1972 Cholesterol 1998 Zoster/Shingles (2 of 3) 01/23/2016 11/28/2015 Dexa 2018 Pneumococcal 65+ Yrs (1 - PCV) 2018 COVID-19 Vaccine ( - 2022-2 4 season) 2023 Influenza (#1) 2024 HepA Aged Out No longer eligi [...] age to complete this topic Care Teams Computer Information Science Professor Relationship Specialty [place] [address] [address] [place] [address] PCP - General 03/05/16
--- OUTSIDE RECORDS SUMMARY | 2024-04-30 01:39 | XMS_ITS ---
Author Organization [facility] Address [address] [place] [address] Care Team Providers Care Emergency Veterinary Assistant Name Role Phone NIKKI MINOR Unavailable [phone] Encounters Encounter Location Date Provider Diagnosis [address] [place] [address] 03/03/2024 NIKKI MINOR Plan Of Treatment Next Appt Details Provider Name:NIKKI Roque, 05/03/2024 07:10:00 AM, [facility], [address], [place], [address], Progress Notes * Neema HURTADOOB:[birth year] (68 yo F)Acc No.[id number]:03/03/2024 Patient:Ninoska SOTO Provider:?Nikki Minor D.D.S., M.S. :1955???Age:68 Y???Sex:Female D ate:03/03/2024 Address:[address] [place], [place] [id number] Subjective: * Chief Complaints: * ??? * Medical History:? Objective: * Vitals:? Assessment: Plan: * Treatment: * Billing Information: * Visit Code:? * Procedure Codes:? * Electronic signature of NIKKI MINOR DDS on 04/30/2024 at 01:38 AM CDT Sign off status: Pending * Provider:?Nikki Minor D.D.S., M.S. Da te:?03/03/2024 Generated for Cem rodriguez/Lizbeth/Nadirsmitting on:?04/30/2024 01:38 AM CDT
--- OUTSIDE RECORDS SUMMARY | 2024-04-30 01:39 | XMS_ITS | Encounter Summary ---
Author Organization [facility] Address [address] [place] [address] Care Team Providers Care Homebound Teacher Name Role Phone Reina Trammell MD Primary Care Provider Encounter Details Date Type Department Care Team (Latest Contact Info) Description 01/20/2024 Orders Only [facility] DEPARTMENT ProviderHolland MD [place] [address] Social History Tobacco Use Types Packs/Day Years [...] 11:00 AM CDT Appointment PULMONARY LAB AT [address] [address] 07/15/2024 1:00 PM CDT Office Visit Specialty Center 3931 Pulmonary Medicine [address] [place] [address] Shobha Mcarthur MD [facility] [address] [place] [address] documented as of this encounter Procedures Procedure Name Priority Date/Time Associated Diagnosis Comments IMAGING 01/20/2024 documented in this encounter Results * IMAGING (01/20/2024) Anatomical Region Laterality Modality Other Interface Provider MD DUMMY/OTHER/AR documented in this encounter Visit Diagnoses Not on filedocumented in this encounter Care Teams Homebound Teacher Relationship Specialty [place] [address] [place] [address] PCP - General 03/05/16 documented as of this encounter
--- OUTSIDE RECORDS SUMMARY | 2024-04-30 01:39 | XMS_ITS | Encounter Summary ---
Author Organization [facility] Address [address] [place] [address] Care Team Providers Care Psychologist Developmental Name Role Phone Reina Trammell MD Primary Care Provider [phone] Encounter Details Date Type Department Care Team (Latest Contact Info) Description 01/20/2024 Orders Only [facility] DEPARTMENT ProviderHolland MD [place] [address] Social History Tobacco Use Types Packs/Day Years [...] 11:00 AM CDT Appointment PULMONARY LAB AT [address] [address] 07/15/2024 1:00 PM CDT Office Visit Specialty Center 3931 Pulmonary Medicine [address] [place] [address] Shobha Mcarthur MD [address] [place] [address] [place] [phone] documented as of this encounter Procedures Procedure Name Priority Date/Time Associated Diagnosis Comments CT 01/20/2024 documented in this encounter Results * CT (01/20/2024) Anatomical Region Laterality Modality Other Interface Provider MD DUMMY/OTHER/AR documented in this encounter Visit Diagnoses Not on filedocumented in this encounter Care Teams Psychologist Developmental Relationship Specialty Start [place] [address] [address] [address] PCP - General 03/05/16 documented as of this encounter
== END 2024-04-26 08:54 | disposition home or self-care (01) ==
LOC: NFLDREF 04-30 01:37
PROVIDERS: PCP Family Medicine; Referring Provider Family Medicine; Visit Provider Family Medicine
DX: M85.80 Other specified disorders of bone density and structure, unspecified site (principal); R82.90 Unspecified abnormal findings in urine
CPT/HCPCS: 80053; 87086

== ENCOUNTER 2024-07-14 12:38 | Outpatient (CLI) | payer MEDICARE, BC, SELFPAY ==
--- OUTSIDE RECORDS SUMMARY | 2024-07-14 12:42 | XMS_ITS | Clinical Summary ---
Author Organization [facility] Address [address] [address] Phone Care Team Providers Care Youth Probation Officer Name Role Phone Elsewhere, Pcp Primary Care Provider Unavailabl e Allergies Active Allergy Reactions Criticality Noted Date Comments Alendronic Acid Muscle pain Low 04/27/2024 Chest pain Codeine Pruritis Medium 09/22/2023 Morphine RASH Medium 04/27/2024 Sulfa Drugs RASH Medium 02/19/2016 Sulfamethoxazole W-Trimethoprim RASH Medium 12/2016 Medications latanoprost (Xalatan) 0.005 % ophthalmic solution Place 1 Drop into both eyes at bedtime. Active acetaminophen (TYLENOL) 325 MG tablet Take 3 Tablets by mouth every six hours as needed for Pain. Limit acetaminophen to 4000 mg per day from all sources. 100 Tablet 4 Active oxyCODONE (Roxicodone) 5 MG immediate release tablet Take 0.5-1 Tablets by mouth every six hours as needed for Pain. Take 0.5-1 tablet every 4-6 hours as needed for pain. Take 0.5 tablet for pain rated 4-6, take 1 tablets for pain rated 7-10) 30 Tablet 4 Active senna-docusate (Senna S) 8.6-50 MG oral tablet Take 1-2 Tablets by mouth two times a day. 30 Tablet 4 Active aspirin EC 325 MG tablet Take 1 Tablet by mouth one time a day for 42 days. For DVT prevention. Do not split or crush. 42 Tablet 4 024 meloxicam (Mobic) 15 MG tablet Take 1 Tablet by mouth one time a day for 42 days. Take with food. 42 Tablet 4 024 omeprazole (PriLOSEC) 20 MG delayed-releas e capsule Take 1 Capsule by mouth one time a day for 42 days. Do not crush. 42 Capsule 4 024 Active Problems Problem Noted Date Diagnosed Date S/P total left hip arthroplasty 04/30/2024 Encounters Date Type Department Care Team Description 05/05/2024 1:55 PM CDT Ancillary Procedure [facility] [address] [place] [address] 05/05/2024 11:00 AM CDT - 05/05/2024 2:30 PM CDT Surgery [facility] [address] [place] [address] Caleb Richards MD Left total hip arthroplasty direct anterior approach 05/05/2024 10:56 AM CDT Anesthesia Event [facility] [address] [place] [address] Alfredo Jameson, Lowell Da Silva MD 05/05/2024 9:15 AM CDT Ancillary Procedure [facility] [address] [place] [address] 05/05/2024 9:01 AM CDT - 05/06/2024 11:57 AM CDT Hospital Encounter [facility] [address] [place] [address] Caleb Richards MD S/P total left hip arthroplasty (Primary Dx) Discharge Disposition: Home and/or Self Care 05/05/2024 Travel 05/03/2024 Travel from Last 3 Months Surgical History Surgery Date Site/Laterality Comments LIGATE FALLOPIAN TUBE TOTAL ABDOM HYSTERECTOMY DELIVERY ONLY HIP ARTHROPLASTY 05/05/2024 Hip/Left Procedure: Left total hip arthroplasty direct anterior approach; Surgeon: Caleb Richards MD; Location: [facility] Medical devices from this surgery are in the Medical Devices section. Social History Tobacco Use Types Packs/Day Years Used Date Smoking Tobacco: Never Passive Smoke Exposure: Never Smokeless Tobacco: Never Tobacco Cessation:Counseling Given: Not Answered [facility] Utilities Answer Date Recorded In the past 12 months has th e electric, gas, oil, or water company threatened to shut off services in your home? No 05/05/2024 Hunger Vital Sign Answer Date Recorded Within the past 12 months, y ou worried that your food would run out before you got the money to buy more. Never true 05/05/20 24 Within the past 12 months, t he food you bought just didn't last and you didn't have money to get more. Never true 05/05/2024 PRAPARE - Transportation Answer Date Re corded In the past 12 months, has l ack of transportation kept you from medical appointments or from getting medications? No 04/16 In the past 12 months, has l ack of transportation kept you from meetings, work, or from getting things needed for daily living? No 05/05/2024 Housing Stability Vital Sign Answer Joss e Recorded In the last 12 months, was t here a time when you were not able to pay the mortgage or rent on time? No 05/05/2024 In the past 12 months, how m any times have you moved where you were living? 0 05/05/2024 At any time in the past 12 m onths, were you homeless or living in a prison (including now)? No 05/05/2024 IP Custom IPV Answer Date Recorded Do you feel UNSAFE in any of your personal relationships with your family members or any other acquaintances? No 2023 Comments No Sex and Gender Information Value Date Recorded Sex Assigned at Female 05/03/2024 2:41 PM CDT Legal Sex Female 10:30 AM CDT Gender Identity Female 05/03/2024 2:41 PM CDT Sexual Orientation Not on file Obstetrics History Last Filed Vital Signs Vital Sign Reading Time Taken Comments Blood Pressure 119/65 05/06/2024 9:06 AM CDT Pulse 73 05/06/2024 9:06 AM CDT Temperature 36.9 ??C (98.4 ??F) 05/06/2024 9:06 AM CD T Respiratory Rate 16 05/06/2024 6:59 AM CDT Oxygen Saturation 99% 05/06/2024 9:06 AM CDT Inhaled Oxygen Concentration - - Weight 59.2 kg (130 lb 8 oz) 05/05/2024 9:22 AM CDT Height 156.2 cm (5' 1.5) 05/05/2024 9:22 AM CDT Body Mass Index 24.26 05/05/2024 9:22 AM CDT Plan of Treatment Health Maintenance Due Date Last Done Comments CT Colonography 1953 Cologuard 1955 Colonoscopy 1953 Colorectal Cancer Screening 1953 FIT/FOBT 1953 MAMMO,SCREEN 1953 Sigmoidoscopy 1953 PERTUSSIS (Standing Order) 1972 TETANUS (Standing Order) 1972 Shingrix (Zoster recombinant ) vaccine (Standing Order) (1 of 2) 11/27/2003 DXA,FEMALES AGE 65 OR GREATER 2018 Pneumococcal Vaccine: 65+ yr s (Standing Order) (1 of 1 - PCV) 2018 COVID-19 Vaccine ( - 2023-2 5 season) 2024 Influenza Vaccine Seasonal (Standing Order) (#1) 2024 RSV Vaccination (60+ yrs) (Abrysvo/Arexvy) (1 - 1-dose 75+ series) 2028 HPV Vaccine (Standing Order) Aged Out No longer eligible based on patient's age to complete this topic Hepatitis B Vaccine (Standin g Order) Aged Out No longer eligible b ased on patient's age to complete this topic Medical Devices Implanted Type Area Deputy Building Guard Device Identifier Shelf Expiration Date Model / Serial / Lot Cup Acet 52mm [place] [employer] - [id number] Implanted:Qty: 1 on 05/05/2024 by Caleb Richards MD at [facility] Left: Hip DEPUY 02/12/2034 1217-22-052 / NA / [id number] [employer] Hole Eliminator Ps - [id number] Implanted:Qty: 1 on 05/05/2024 by Caleb Richards MD at [facility] Left: Hip DEPUY 03/14/2034 1246-03-000 / NA / [id number] Liner Acet Altrx 36mm X 52mm Neutral - [id number] Implanted:Qty: 1 on 05/05/2024 by Caleb Richards MD at [facility] Left: Hip DEPUY 03/14/2029 1221-36-052 / NA / [id number] Screw Bone Cancellous 6.5mm X 35mm - [id number] Implanted:Qty: 1 on 05/05/2024 by Caleb Richards MD at [facility] Left: Hip DEPUY 12/13/2033 1217-35-500 / NA / [id number] Screw Bone Cancellous 6.5mm X 20mm - [id number] Implanted:Qty: 1 on 05/05/2024 by Caleb Richards MD at [facility] Left: Hip DEPUY 01/12/2033 1217-20-500 / NA / [id number] Screw Bone Cancellous 6.5mm X 15mm - [id number] Implanted:Qty: 1 on 05/05/2024 by Caleb iRchards MD at [facility] Left: Hip DEPUY 02/12/2034 1217-15-500 / NA / [id number] Stem Femoral Actis Duofix Sz 4 High - [id number] Implanted:Qty: 1 on 05/05/2024 by Caleb Richards MD at [facility] Left: Hip DEPUY 05/15/2032 1010-12-040 / NA / [id number] Head Femoral Biolox Delta Sz 36 +1.5mm - [id number] Implanted:Qty: 1 on 05/05/2024 by Caleb Richards MD at [facility] Left: Hip DEPUY 11/12/2028 1365-36-310 / NA / [id number] Procedures Procedure Name Priority Date/Time Associated Diagnosis Comments HEMOGLOBIN Routine 05/06/2024 5:27 AM CDT XR HIP LEFT 2 OR 3 VIEWS W PELVIS Routine 05/05/2024 2:20 PM CDT S/P total left hip arthroplasty XR C ARM FLUORO Routine 05/05/2024 12:59 PM CDT S/P total left hip arthroplasty ANE INTUBATION 05/05/2024 11:03 AM CDT TOTAL HIP REPLACEMENT 05/05/2024 10:56 AM CDT Left hip degenerative joint disease M16.11 Case Notes Depuy actis Orthogrid Special Needs no known drug allergies EKG 12-LEAD DICK 05/05/2024 9:32 AM CDT from Last 3 Months Results * (ABNORMAL) HEMOGLOBIN (05/06/2024 5:27 AM CDT) HGB 10.0(L) 12.0 - 16.0 g/dl 05/06/2024 5:50 AM CDT [facility] Blood BLOOD SPECIMEN / Unknown Venipuncture / Unknown 05/06/2024 5:27 AM CDT 05/06/2024 5:43 AM CDT Caleb Richards MD EC HEMATOLOGY ORDERABLES Final Result Performing Organization Address City/State/[facility] Co de Phone Number [facility] [address] [place] [address] * XR HIP LEFT 2 OR 3 VIEWS W PELVIS (05/05/2024 2:20 PM CDT) Anatomical Region Laterality Modality Pelvis, Hip Radiographic Pebbles ging 05/05/2024 2:14 PM CDT Narrative 05/05/2024 2:35 PM CDT PROCEDURE: XR HIP LEFT 2 OR 3 VIEWS W PELVIS HISTORY: Hip replacement surgery. COMPARISON: Earlier same day intraoperative imaging. FINDINGS: Recent postsurgical changes of left total hip arthroplasty. The hardware appears intact and well-positioned. No dislocation or displaced fracture. Postoperative gas about the left hip. IMPRESSION: Expected postoperative changes of recent left total hip arthroplasty. Electronically signed by Vini Mcarthur MD Report Date: 05/05/2024 2:35 PM Procedure Note Vini Mcarthur MD - 05/05/2024 PROCEDURE: XR HIP LEFT 2 OR 3 VIEWS W PELVIS HISTORY: Hip replacement surgery. COMPARISON: Earlier same day intraoperative imaging. FINDINGS: Recent postsurgical changes of left total hip arthroplasty. The hardwareappears intact and well-positioned. No dislocation or displaced fracture.Postoperative gas about the left hip. IMPRESSION: Expected postoperative changes of recent left total hip arthroplasty. Electronically signed by Vini Mcarthur MD Report Date: 05/05/2024 2:35 PM Caleb Richards MD EC DIAGNOSTIC IMAGING ORDERABL ES Final Result * XR C ARM FLUORO (05/05/2024 12:59 PM CDT) Anatomical Region Laterality Modality Radiographic Pebbles ging 05/05/2024 11:2 0 AM CDT Narrative 05/05/2024 1:03 PM CDT PROCEDURE: XR C ARM FLUORO. HISTORY: Placement COMPARISON: None available. FINDINGS: 14 images were obtained intraoperatively. Fluoroscopy time is 34 seconds. The patient has undergone a left hip arthroplasty. The components appear in expected position. Please see the operative note for additional details. Moderate degenerative arthrosis at the contralateral right hip. IMPRESSION: Intraoperative imaging guidance provided during performance of a left total hip arthroplasty. Electronically signed by Gunnar Astorga MD Report Date: 05/05/2024 1:03 PM Procedure Note Gunnar Astorga MD - 05/05/2024 PROCEDURE: XR C ARM FLUORO. HISTORY: Placement COMPARISON: None available. FINDINGS: 14 images were obtained intraoperatively. Fluoroscopy time is 34 seconds.The patient has undergone a left hip arthroplasty. The components appear inexpected position. Please see the operative note for additional details. Moderate degenerative arthrosis at the contralateral right hip. IMPRESSION: Intraoperative imaging guidance provided during performance of a lefttotal hip arthroplasty. Electronically signed by Gunnar Astorga MD Report Date: 05/05/2024 1:03 PM Barbra Bergeron PA-C EC DIAGNOSTIC IMAGING ORDER CORKY Final Result * ANE ETT AIRWAY (05/05/2024 11:03 AM CDT) Narrative MunchDarius APRN, CRNA - 05/05/2024 11:03 AM CDT Darius Mendoza APRN, CRNA ? 05/05/2024 11:15 AM Airway Date/Time: 05/05/2024 11:03 AM Urgency: elective Airway not difficult General Information and Staff Patient location during procedure: OR Performed by: Darius Mendoza APRN, CRNA Authorized by: Lowell Gasca MD ?? Indications and Patient Condition Indications for airway management: anesthesia Spontaneous ventilation: present Sedation level: deep Preoxygenated: yes Patient position: sniffing MILS maintained throughout Mask difficulty assessment: 1 - vent by mask Planned trial extubation Final Airway Details Final airway type: endotracheal airway Successful airway: ETT Cuffed: yes Successful intubation technique: video laryngoscopy Endotracheal tube insertion site: oral Blade size: #3 (Packer) ETT size (mm): 7.0 cuff inflated to minimal occlusive pressure Cormack-Lehane Classification: grade I - full view of glottis Placement verified by: chest auscultation and palpation of cuff Cuff volume (mL): 4 Measured from: lips ETT to lips (cm): 22 Number of attempts at approach: 1 Ventilation between attempts: BVM Number of other approaches attempted: 0 dentition unchanged Lowell Gasca MD PROCEDURE/MINOR CALEB ORDERABLES F inal Result * EKG 12-LEAD (05/05/2024 9:32 AM CDT) Ventricular Rate 59 BPM RMCMUSE Atrial Rate 59 BPM RMCMUSE P-R Interval 178 ms RMCMUSE QRS Duration 146 ms RMCMUSE QT 478 ms RMCMUSE QTc 473 ms RMCMUSE P Watts 67 degrees RMCMUSE R Watts -26 degrees RMCMUSE T Watts 109 degrees RMCMUSE 05/05/2024 9:32 AM CDT 05/05/2024 2:43 PM CDT Narrative RMCMUSE - 05/05/2024 2:43 PM CDT Confirming Carter Angeles Sinus bradycardia Left bundle branch block Abnormal ECG No previous ECGs available Procedure Note Marlon Angeles MD - 05/05/2024 [address] Doc Marlon Angeles Sinus bradycardia Left bundle branch block Abnormal ECG No previous ECGs available us Caleb Richards MD IP ECG ORDERABLES Final Result RMCMUSE from Last 3 Months Insurance MEDICARE PART A & B [facility] Advance Directives For more information, please contact: [phone] * Full Code (Latest Code Status on File) Date Activated Date Inactivated Comments 05/05/2024 9:07 AM 05/06/2024 4:02 PM Care Teams Youth Probation Officer Relationship Specialty Start Date End Date Elsewhere, Pcp PCP - General 04/19/24
--- OUTSIDE RECORDS SUMMARY | 2024-07-14 12:42 | XMS_ITS | Encounter Summary ---
Author Organization [facility] Address [address] [address] Phone Care Team Providers Care Spanish Instructor Name Role Phone Elsewhere, Pcp Primary Care Provider Unavailabl e Encounter Details Date Type Department Care Team (Latest Contact Info) Description 05/05/2024 Travel Social History Tobacco Use Types Packs/Day Years Used Date Smoking Tobacco: Never Passive Smoke Exposure: Never Smokeless Tobacco: Never [facility] Utilities Answer Date Recorded In the past 12 months has th e electric, gas, oil, or water [employer] threatened to shut off services in your [...] any time in the past 12 m [facility], were you homeless or living in a senior living (including now)? No 05/05/2024 EH IP Custom IPV Answer Date Recorded Do you feel UNSAFE in any of your personal relationships with your family members or any other acquaintances? No 2023 Comments No Sex and Gender Information Value Date Recorded Sex Assigned at Female 05/03/2024 2:41 PM CDT Legal Sex Female 10:30 AM CDT Gender Identity Female 05/03/2024 2:41 PM CDT Sexual Orientation Not on file documented as of this encounter Functional Status * Patient's Vision Adequate to Safely Complete Daily Activities Answer Date of Assessment Author Yes 05/05/2024 3:06 PM PEET Luz Lin RN * Patient's Memory Adequate to Safely Complete Daily Activities Answer Date of Assessment Author Yes 05/05/2024 3:06 PM Luz Jackson RN documented as of this encounter Mental Status * Patient's Judgment Adequate to Safely Complete Daily Activities Answer Entry Date Author Yes 05/05/2024 3:06 PM Luz Jackson RN documented in this encounter Plan of Treatment Not on file documented as of this encounter Visit Diagnoses Not on filedocumented in this encounter Care Teams Spanish Instructor Relationship Specialty Start Date End Date Elsewhere, Pcp PCP - General 04/19/24 documented as of this encounter
--- OUTSIDE RECORDS SUMMARY | 2024-07-14 12:42 | XMS_ITS | Encounter Summary ---
Author Organization [facility] Address [address] [address] Phone Care Team Providers Care Grip Assembler Name Role Phone Elsewhere, Pcp Primary Care Provider Unavailabl e Encounter Details Date Type Department Care Team (Late st Contact Info) Description 05/05/2024 1:55 PM CDT Ancillary Procedure [facility] [address] [place] [address] Social History Tobacco Use Types Packs/Day Years Used Date Smoking Tobacco: Never Passive Smoke Exposure: Never Smokeless Tobacco: Never [facility] Utilities Answer Date Recorded In the [...] any time in the past 12 m [facility], were you homeless or living in a nursing home (including now)? No 05/05/2024 EH IP Custom [...] of Assessment Author Yes 05/05/2024 3:06 PM CDT Luz Lin RN * Patient's Memory Adequate to Safely Complete Daily Activities Answer Date of Assessment Author Yes 05/05/2024 3:06 PM CDT Luz Lin RN documented as of this encounter Mental Status * Patient's Judgment Adequate to Safely Complete Daily Activities Answer Entry Date Author Yes 05/05/2024 3:06 PM CDT Luz Lin RN documented in this encounter Plan of Treatment Not on file documented as of this encounter Procedures Procedure Name Priority Date/Time Associated Diagnosis Comments XR HIP LEFT 2 OR 3 VIEWS W PELVIS Routine 05/05/2024 2:20 PM CDT S/P total left hip arthroplasty documented in this encounter Results * XR HIP LEFT 2 OR 3 [...] Mcarthur MD Report Date: 05/05/2024 2:35 PM us Caleb Richards MD EC DIAGNOSTIC IMAGING ORDERABL ES Final Result documented in this encounter Visit Diagnoses Not on filedocumented in this encounter Care Teams Grip Assembler Relationship Specialty Start Date End Date Elsewhere, Pcp PCP - General 04/19/24 documented as of this encounter
--- OUTSIDE RECORDS SUMMARY | 2024-07-14 12:42 | XMS_ITS | Encounter Summary ---
Author Organization [facility] Address [address] [address] Phone Care Team Providers Care Second Steward Name Role Phone Elsewhere, Pcp Primary Care Provider Unavailabl e Encounter Details Date Type Department Care Team (Late st Contact Info) Description 05/05/2024 9:15 AM CDT Ancillary Procedure [facility] [address] [place] [address] Social History Tobacco Use Types Packs/Day Years Used Date Smoking Tobacco: Never Passive Smoke Exposure: Never Smokeless Tobacco: Never [facility] Utilities Answer Date Recorded In the [...] any time in the past 12 m [facility], were you homeless or living in a longterm (including now)? No 05/05/2024 EH IP Custom [...] Name Priority Date/Time Associated Diagnosis Comments XR C ARM FLUORO Routine 05/05/2024 12:59 PM CDT S/P total left hip arthroplasty documented in this encounter Results * XR C ARM FLUORO (05/05/2024 12:59 [...] MD Report Date: 05/05/2024 1:03 PM Barbra TOMAS DIAGNOSTIC IMAGING ORDER CORKY Final Result documented in this encounter Visit Diagnoses Not on filedocumented in this encounter Care Teams Second Steward Relationship Specialty Start Date End Date Elsewhere, Pcp PCP - General 04/19/24 documented as of this encounter
--- OUTSIDE RECORDS SUMMARY | 2024-07-14 12:42 | XMS_ITS | Encounter Summary ---
Author Organization [facility] Address [address] [address] Phone Care Team Providers Care [employer] Operations Supervisor Name Role Phone Elsewhere, Pcp Primary Care Provider Unavailabl e Reason for Visit * Reason Onset Date Comments Pre-Procedure Call 04/15/2024 * Auth/Cert (Routine) Specialty Diagnoses / Procedures Referred By Catia t Referred To Contact Diagnoses Left hip degenerative joint disease M16.11 Procedures TOTAL HIP REPLACEMENT Left total hip arthroplsty direct anterior approach Hilda Gordon MD [facility] [address] [address] Phone: tel: fax: Referral ID Status Reason Start Date Expiration Date Visits Re quested Visits Authorized [id number] 1 1 Encounter Details Date Type Department Care Team (Late st Contact Info) Description 05/05/2024 9:01 AM CDT - 05/06/2024 11:57 AM CDT Hospital Encounter [address] [id number] Hilda Gordon MD [facility] [address] [id number] S/P total left hip arthroplasty (Primary Dx) Discharge Disposition: Home and/or Self Care Social History Tobacco Use Types Packs/Day Years Used Date Smoking Tobacco: Never Passive Smoke Exposure: Never Smokeless Tobacco: Never Tobacco Cessation:Counseling Given: Not Answered [facility] Utilities Answer Date Recorded In the [...] any time in the past 12 m [facility], were you homeless or living in a jail (including now)? No 05/05/2024 EH IP Custom [...] on file documented as of this encounter Last Filed Vital Signs Vital Sign Reading [...] Mass Index 24.26 05/05/2024 9:22 AM CDT documented in this encounter Functional Status * Patient's Vision [...] Luz Lin RN documented in this encounter Discharge Summaries * Marie Ross PA-C - 05/06/2024 7:13 AM CDT HOSPITAL DISCHARGE SUMMARY Marie Ross PA-C 05/06/2024 Patient Name: Ninoska Hurtado Date of : 1955 Age: [age] year old Primary Physician: Pcp Elsewhere Phone: None Admitting Physician: Hilda Gordon MD Admission Date: 05/05/2024 Discharging Physician: Marie Ross PA-C Discharge Date: 05/06/24 Discharge Diagnoses: Principal Problem: S/P total left hip arthroplasty Resolved Problems: * No resolved hospital problems. * Discharge Disposition: See Orders Hospital Course: Patient presents to the perioperative period after failing to manage their hip osteoarthritis. Risks, benefits, and complications were reviewed with the patient, they elected to proceed with the scheduled surgery. A total hip replacement was completed without complication. she was admitted to orthopedics where physical therapy and education was completed. Subjective: Patient is doing well today on POD #1. They have no nausea, vomiting, chest pain, lightheadedness or dizziness. They deny any numbness or paresthesias in their surgical lower extremity. They are ambulating in the hallways, tolerating oral intake, voiding and pain is controlled with oral medications. Using IS. VSS. Hgb 10.0 (13.4 pre-op). Their discharge medications were discussed at length. They understand they will be using multiple medications for pain control to be used together. We discussed their tylenol, meloxicam and Oxycodoneprescriptions for pain control on discharge. Senokot & Prilosec were also reviewed. Appropriateanticoagulation therapy was also discussed, including aspirin 325 mg daily x42 days. Their questions were answered, and dressing care instructions were clearly given. They understand to avoid twisting or torquing of the left hip as well as no strengthening exercises of the hip & leg for the first 8 weeks after surgery. Objective: Blood pressure 90/52, pulse 66, temperature 37.4 ??C (99.3 ??F), temperature source Temporal, resp.rate 16, height 1.562 m (5' 1.5), weight 59.2 kg (130 lb 8 oz), SpO2 95%. The patient is A&Ox3. Appears comfortable, sitting up at bedside. Prineo dressing C/D/I without strikethrough. No surrounding erythema. Mild edema. Sensation intact to light touch & equal bilaterally in the femoral, DP, SP and tibial nerve distributions. ROM: Flexes at the left hip. Appropriately flexes & extends all toes bilaterally. Motor: +5/5 dorsiflexion, plantar flexion & EHL bilaterally. Fires quad. Bilateral calves soft and non-tender. Negative Vitaliy's sign bilaterally. Palpable left dorsalis pedis and posterior tibial pulses. Brisk <2 sec capillary refill in the toes. Foot warm & well perfused. Labs: Lab Results Component Value Date HGB 10.0 05/06/2024 Current Discharge Medication List New Prescriptions Details acetaminophen 325 MG tablet Commonly known as: Tylenol Dose: 975 mg 975 mg, Oral, EVERY 6 HOURS NEEDED, Limit acetaminophen to 4000 mg per day from all sources. aspirin EC 325 MG tablet Dose: 325 mg 325 mg, Oral, ONCE DAILY, For DVT prevention. Do not split or crush. meloxicam 15 MG tablet Commonly known as: Mobic Dose: 15 mg 15 mg, Oral, ONCE DAILY, Take with food. omeprazole 20 MG delayed-release capsule Commonly known as: PriLOSEC Dose: 20 mg 20 mg, Oral, ONCE DAILY, Do not crush. oxyCODONE 5 MG immediate release tablet Commonly known as: Roxicodone Dose: 2.5-5 mg 2.5-5 mg, Oral, EVERY 6 HOURS NEEDED, Take 0.5-1 tablet every 4-6 hours as needed for pain. Take0.5 tablet for pain rated 4-6, take 1 tablets for pain rated 7-10) senna-docusate 8.6-50 MG oral tablet Commonly known as: Senna S Dose: 1-2 Tablet 1-2 Tablets, Oral, 2 TIMES DAILY No Recommendations have been made for these medications Details latanoprost 0.005 % ophthalmic solution Commonly known as: Xalatan Ask about: Which instructions should I use? Dose: 1 Drop 1 Drop, Both Eyes, AT BEDTIME Follow Up Instructions: Hilda Gordon MD [facility] [address] [facility] [address] Go on 05/26/2024 POST-OP APPOINTMENT SCHEDULED WITH HILDA GORDON MD AT THE [facility] AT 2:10 PM. Marie Ross PA-C [facility] documented in this encounter Discharge Instructions * Appointments* Luz Lin RN - 05/06/2024 9:44 AM CDT POST-OP APPOINTMENT SCHEDULED WITH HILDA GORDON MD AT THE [facility] AT 2:10 PM. documented in this encounter Medications at Time of Discharge acetaminophen (TYLENOL) 325 MG tablet Take 3 Tablets by mouth every six hours as needed for Pain. Limit acetaminophen to 4000 mg per day from all sources. 100 Tablet 05/05/2024 oxyCODONE (Roxicodone) 5 MG immediate release tablet Take 0.5-1 Tablets by mouth every six hours as needed for Pain. Take 0.5-1 tablet every 4-6 hours as needed for pain. Take 0.5 tablet for pain rated 4-6, take 1 tablets for pain rated 7-10) 30 Tablet 05/05/2024 senna-docusate (Senna S) 8.6-50 MG oral tablet Take 1-2 Tablets by mouth two times a day. 30 Tablet 05/05/2024 latanoprost (Xalatan) 0.005 % ophthalmic solution Place 1 Drop into both eyes at bedtime. aspirin EC 325 MG tablet Take 1 Tablet by mouth one time a day for 42 days. For DVT prevention. Do not split or crush. 42 Tablet 05/05/2024 4 meloxicam (Mobic) 15 MG tablet Take 1 Tablet by mouth one time a day for 42 days. Take with food. 42 Tablet 05/05/2024 4 omeprazole (PriLOSEC) 20 MG delayed-release capsule Take 1 Capsule by mouth one time a day for 42 days. Do not crush. 42 Capsule 05/05/2024 4 documented as of this encounter Ordered Prescriptions Prescription Sig Dispense Quantity Refills Last Filled Start Date End Date senna-docusate (Senna S) 8.6-50 MG oral tablet Take 1-2 Tablets by mouth two times a day. 30 Tablet 05/05/2024 oxyCODONE (Roxicodone) 5 MG immediate release tablet Take 0.5-1 Tablets by mouth every six hours as needed for Pain. Take 0.5-1 tablet every 4-6 hours as needed for pain. Take 0.5 tablet for pain rated 4-6, take 1 tablets for pain rated 7-10) 30 Tablet 05/05/2024 acetaminophen (TYLENOL) 325 MG tablet Take 3 Tablets by mouth every six hours as needed for Pain. Limit acetaminophen to 4000 mg per day from all sources. 100 Tablet 05/05/2024 omeprazole (PriLOSEC) 20 MG delayed-release capsule Take 1 Capsule by mouth one time a day for 42 days. Do not crush. 42 Capsule 05/05/2024 06/16/20 24 meloxicam (Mobic) 15 MG tablet Take 1 Tablet by mouth one time a day for 42 days. Take with food. 42 Tablet 05/05/2024 06/16/20 24 aspirin EC 325 MG tablet Take 1 Tablet by mouth one time a day for 42 days. For DVT prevention. Do not split or crush. 42 Tablet 05/05/2024 06/16/20 24 documented in this encounter Discharge Disposition Disposition Code Departure Means Destination Comment s Home and/or Self Half[place] documented in this encounter Progress Notes * Marina Ro, BENZENE WORKER - 05/06/2024 11:16 AM CDT PHYSICAL THERAPY ACUTE CARE DISCHARGE NOTE SUBJECTIVE Patient agreeable to participate with physical therapy. Patient seated in recliner with legs elevated, Eric is in attendance today. Date of Admission: 05/05/2024 Pt is s/p on left DEEPA by Dr. Hilda Gordon Pain: 09/24 Precautions: OI PT hip precaution: No hip precaution secondary to surgical approach. Ambulation only. Barriers to Learning: None Cognition: Alert , Oriented, and Cooperative OBJECTIVE Supine to Sit: didn't attempt Sit to Supine: didn't attempt Sit<>Stand: modified independence Gait: Patient ambulated 140 ft with FWW and modified independence. Gait pattern/training- Therapist provided verbal cues to improve patient use of assistive device and to address impairments. Patient performed step to gait pattern, cues for continuous movement of FWW and and heel strike with toe off pattern which she was able to perform for most of walking with safe use of FWW, SBA and noted she felt better with continuous movement. Stairs: The patient performs 3 stairs, ascend/descend with step to patterning post operatively to accommodate total joint replacement healing. They required SBA assistance and unilateral hand rail and with single end cane. The patient and their population health coach was provided education and certified addiction counselor on safe body mechanics and transfer assistance for discharge planning. Tests and Measures: 10M WALK TEST: Patient's preferred gait speed is 24 seconds calculated from a distance of 10 meters. Gait speed: 26-50 sec = Household ambulator (gait speed 0.38 m/s-0.2 m/s) 25-12 sec = Limited community ambulators (gait speed of 0.4 to 0.83 m/s) 12.5-8 sec = Community ambulators (gait speed of 0.8-1.25 m/s) 7 sec or less = Able to safely cross the street (gait speed of 1.2 m/sec or greater) MODIFIED NAVA INDEX: Self-Care Assessment MBI Score: 95/ 100 Indicating: Slight Dependence Score Interpretation 0-20 Total Dependence 21-60 Severe Dependence 61-90 Moderate Dependence 91-99 Slight Dependence 100 Rumford Score Prediction Less than 40 Unlikely to go Home Dependent in Mobility Dependent in Self Care 60 Pivotal score where patients move from dependency to assisted independence 60-80 If living alone will probably need a number of community services to cope More than 85 Likely to be discharged to community living Independent in transfers and able to walk or use wheelchair independently Strength/Range of Motion Assessment: WFL POD1 Therapeutic Exercise/ Today's Treatment: No exercise per surgeon preference. The opportunity to ask questions was offered and satisfied. Therapeutic Activity: Skilled therapeutic education, certified addiction counselor and activity modification was providedto patient for the purpose and intent of improving functional mobility and activities of daily living. Therapist provided education regarding the following topics; Car Training: Patient participated in functional car transfer training with therapist with SBA assistance and no assistive device. Patient demonstrated safe understanding of hip precautions throughout the transfer. Vitals/Observations/Response to Treatment: Stable throughout session No complaints of dizziness/lightheadedness No complaints or indications of shortness of breath Patient Education Provided: Ambulation + Exercise- Education provided on fall avoidance within home and DME needs; frequency ofambulation every 1-1.5 hours for 5 minutes with walker and as appropriate progression to cane, icing every hour for 20-30 minutes during the day; frequency of HEP - 2x/day, avoidance of over-doing activity; elevation on multiple pillows to decrease swelling and safe coaching handling techniques as w ell as review of total hip precautions set forth by surgeon. Patient verbalized and demonstrated good understanding verbalized good understanding. ASSESSMENT The patient demonstrates SBA/modified independence with gait and transfers; safe performance and understanding of HEP, post op recommendations and precautions following DEEPA surgery on the left. Throughout visit, PT observed incision site for drainage- no concerns to note. The patient and their population health coach have been instructed on safe patient handling and mobility/DME recommendations for disposition. They have met their goals and will be discharge from PT at this time. Barrier to Discharge Home: No anticipated barriers PLAN OF CARE Recommendations for Discharge: Home with caregiver / Family support Anticipated DME Needs for Discharge: patients has all necessary AD's Progress towards Goals: Goals to be met by patient discharge: Patient will ambulate 120 + feet with SBA and appropriate assistive device Patient will demonstrate modified independence with bed, chair and car transfer while maintaining hip precautions (if applicable). Patient will demonstrate 3+ stairs with CGA with appropriate assistive device. Patient will demonstrate/verbalize understanding of post op HEP, precautions, fall avoidance education and recommendations for home s/p DEEPA. GOALS MET Interdisciplinary Communication: Treatment, goals, and plan of care discussed with care round team. Frequency of Physical Therapy Recommended: Discharge PT Total Treatment Time: 25 minutes Therapeutic Activities (90371) = 10 minutes Gait Training (65810) = 15 minutes Cosigned by Nicki Case PT at 05/06/2024 2:52 PM CDT * Teresa Royal RN - 05/06/2024 3:20 AM CDT Procedure(s): Left - Left total hip arthroplasty direct anterior approach Surgeon(s): Rhianna Hensley PA-C O'Neill, Owen R, MD Shearer, Erica B, PA-C 1 Day Post-Op Pain/Comfort: Highest pain score 4/10. Scheduled meds. PRN Oxycodone. Ice packs for comfort and pain management. Assessment/Interventions: VS were WNL. Lung sounds were clear. Heart sounds were normal. Patient denied any numbness and tingling. Dressing was clean, dry and intact. Activity: Assist of x1 with gait belt and front wheeled walker. Up to bathroom. Up to hallway. PT at 1115 Goals/Discharge Plan: Plan to discharge home today with Eric * Orly Simmons RN - 04/15/2024 12:00 PM CDT 04/15/24 1100 Pre-op Call Department Department [facility] Pre-op Call Schedule Pre-op H&P with PCP Completed Do you take a blood thinner? No Pre-op Education Completed Guidebook Received Pre-op Call Completed Previous Joint Surgery No Urinary Health Questionaire Complete Female Questionnaire Discharge Plan Home Will you have help at home? Yes Is your bathroom on the main level? Yes Are you currently using an assistive device? No Length of Stay Plan reviewed;Overnight stay Senior Treasury Consultant name & phone number Eric Jack [phone] Will your population health coach be the one picking you up from the hospital? Yes Do you have stairs to enter your home? Yes Is your bedroom on the main level? Yes Do you have a tub shower or walk-in shower? Tub shower (grab bar) How many blocks can you currently walk? 2+ blocks Do you have any assistive devices at home? Yes Do you have a CPAP? No (uses dental appliance) What pain medications are you currently taking? NSAID;Tylenol Pain Management Preferences Does not want opioid prescription- Has Oxycodone at home Goal after surgery swimming, [employer] game 6 days after surgery Concerns about surgery no Past post-op complications? Not applicable Are you diabetic? No Do you have a metal allergy? No Pre-op H&P date 04/12/24 Pre-op H&P location [facility] in [place] How many stairs to enter your home? 3 Is there a handrail on the stairs to enter your home? Yes What device(s) doyou have at home? walker Reminded to bring device to hospital Yes Urinary Health Questionnaire - Female Difficulty urinating after surgery No Have you had surgery on you bladder? No Do you leak urine (even small drops) wet yourself or wet your pads or undergarments? When you cough or sneeze? 0 When you bend down or lift something up? 0 When you walk quickly, jog or exercise 0 While you are undressing in order to use the toilet? 0 When you are at rest? 0 Do you get a need to urinate that you leak urine? 0 Do you have to powers to the bathroom? 0 Total Urinary Health Score - Female 0 DEEPA/TKA CHRONIC NARCOTIC USE Use of narcotics > 90 days at time of surgery? No documented in this encounter H&P Notes * Hilda Gordon MD - 05/05/2024 7:14 AM CDT The H&P has been reviewed and the patient examined. No change has occurred in the patient's condition since the H&P was completed. Hilda Gordon MD documented in this encounter Miscellaneous Notes * Care Plan - Luz Lin RN - 05/06/2024 10:58 AM CDT Patient Goals: The patient centered goal for this shift:: Pain management; prepare for discharge (05/06/24 0712). Evaluation of patient goal progress Pt progressing toward goals. Procedure(s): Left - Left total hip arthroplasty direct anterior approach Surgeon(s): Rhianna Hensley PA-C O'Neill, Owen R, MD Shearer, Erica B, PA-C 1 Day Post-Op Pain/Comfort: Pain score pt rating pain 1-4/10, prn oxy given just prior to discharge. Pt reports pain improving w/ ambulating, Meds given, and Ice packs Assessment/Interventions: Head-to-toe exceptions VSS. Using IS, strong dorsi/plantar flexion. Voiding wnl, BS present. Pt reports passing gas last night, but none yet this AM. Good appetite, CMS intact , and Dressing prineo CDI. Activity: Ambulation information up SBA w/ walker and gait belt, ambulated in barraza w/ nursing and PT, up to chair, and PT Goals/Discharge Plan: AVS given and reviewed, Discharge education reviewed , All questions answered, and PIV removed. Pt discharged home w/ family. Accompanied to car in , by PT. * Op Note - Hilda Gordon MD - 05/06/2024 6:02 AM CDT [facility] OPERATIVE NOTE Ninoska Hurtado Date of : 1955 Age: [age] year old Date of Procedure: 05/05/2024 SURGEON HILDA GORDON M.D. COUNTY HISTORIAN Radha Louis PA-C - Assisting Rhianna Hensley PA-C - Assisting Mary Kent PA-C Assisting. PREOPERATIVE DIAGNOSIS Left hip osteoarthritis, failed to respond to conservative management. POSTOPERATIVE DIAGNOSIS Left hip osteoarthritis, failed to respond to conservative management. TITLE OF PROCEDURE Left total hip arthroplasty, Depuy uncemented components, direct anterior approach. Velys Fluroscopic hip navigation. ANESTHESIA TYPE: General ESTIMATED BLOOD LOSS: 400 mL SPECIMEN(S) No Specimens Collected COMPLICATIONS: none IMPLANT(S): Implant Name Type Inv. Item Serial No. Hand Box Folder Lot No. LRB No. Used Action CUP ACET 52MM PINNACLE SECTOR II - [id number] CUP ACET 52MM PINNACLE SECTOR II NA DEPUY [id number] Implanted APEX HOLE ELIMINATOR PS - [id number] APEX HOLE ELIMINATOR PS NA DEPUY [id number] Left 1 Implanted LINER ACET ALTRX 36MM X 52MM NEUTRAL - [id number] LINER ACET ALTRX 36MM X 52MM NEUTRAL NA DEPUY [id number] Left 1 Implanted SCREW BONE CANCELLOUS 6.5MM X 35MM - [id number] SCREW BONE CANCELLOUS 6.5MM X 35MM NA DEPUY [id number] Left 1 Implanted SCREW BONE CANCELLOUS 6.5MM X 20MM - [id number] SCREW BONE CANCELLOUS 6.5MM X 20MM NA DEPUY [id number] Left 1 Implanted SCREW BONE CANCELLOUS 6.5MM X 15MM - [id number] SCREW BONE CANCELLOUS 6.5MM X 15MM NA DEPUY [id number] Left 1 Implanted STEM FEMORAL ACTIS DUOFIX SZ 4 HIGH - [id number] STEM FEMORAL ACTIS DUOFIX SZ 4 HIGH NA DEPUY [id number] Left 1 Implanted HEAD FEMORAL BIOLOX DELTA SZ 36 +1.5MM - [id number] HEAD FEMORAL BIOLOX DELTA SZ 36 +1.5MM NA [id number] Left 1 Implanted PROCEDURE The patient was brought to the operating room and after satisfactory anesthesia was placed on the [place] table. The left lower extremity was then prepped and draped in the usual sterile fashion. Velys Fluroscopic hip navigation was utilized during the case for component positioning as well as leg length and offset assessment. An incision was made just lateral to the ASIS and coursing toward the proximal femur. Dissection was carried down to the TFL. The fascia overlying the TFL was incised and dissection was carried down to the interval between TFL and rectus femoris. This was identified. A lateral cobra retractor was placed followed by a medial cobra around the femoral neck. The leash vessels , anterior circumflex, was identified and was coagulated. The underlying fascia was released. Dissection was carried down to the hip capsule. Capsule was identified and a capsulotomy was performed ju T-type fashion first along the intertrochanteric line and then secondarily up along the femoral neck and head, finally completed by releasing along the saddle of the trochanter. The capsular edges were tagged for later repair. The hip was then externally rotated and medial capsular release was performed such that the lesser trochanter could be palpated. Following this, the femoral neck was osteotomized as per the preoperative plan. The femoral head was removed with a corkscrew without difficulty. The acetabulum was exposed and was reamed sequentially up to mm. This was reamed under both direct visualization as well as the aid of image intensification. A 52 mm Pass Christian cup was impacted into place in approximately 40 to 45 degrees of abduction, and 15 degrees of anteversion. Three screws were placed and this gave excellent fixation. The 36 mm neutral liner was impacted into place. Attention was then directed to the femur. The hook was placed underneath the proximal aspect of thefemur between the trochanteric ridge and gluteus pauline. The hip was then brought into external rotation, adduction, and extension. The femur was then carefully elevated using the appropriate releases off the inside of the greater trochanter. Once the femur was elevated, a starter broach was placed followed by sequential broaches. The broaches were performed up to size 4 Actis, which gave excellent torsinal as well as axial stability. Trial reduction was performed with a high offset +1.5mm head. The hip was reduced and with hip reduction the combined anteversion looked excellent. The hip wasbrought into full extension and external rotation. There was no evidence of instability. As well, x-rays were printed and compared with the opposite side and found to have good length and restorationof offset. It was felt that an additional stem size could not be placed. The hip was then dislocated and then the proximal femur was then brought back up into the proximal aspect of the wound. The real size 4 actis stem, high offset was impacted into place. Again this gave excellent torsion as wellas axial stability. The real +1.5mm ceramic biolox head was impacted into place and the hip was reduced again. The image intensification confirmed excellent position of the components. A 3 minute dilute betadine soak was performed. The wound was thoroughly irrigated. One gram of vancomycin powder was placed deep and superficial prior to closure. The capsule was closed with interrupted 0 Vicryl suture and tissues infiltrated with toradol/marcaine mixture. The tensor fascia was closed with a running 0 Stratafix suture. The subcutaneous layer was closed with interrupted 2-0 Vicryl, 2-0 Stratafix, and 3- 0 subcuticular monocryl was placed followed by a mesh dressing with skin glue. Sterile dressing was applied. The patient left the operating room in satisfactory condition. Patient received 1 gm of tranexamic acid pre-op. A skilled first aid officer was necessary for this procedure for assistance with patient positioning,prepping, draping, surgical visualization, performance of the repair, wound closure, and application of the dressing. * Rehab Evaluation - Iliana Gonzalez PT - 05/05/2024 6:22 PM CDT PHYSICAL THERAPY ACUTE CARE ORTHOPEDIC EVALUATION (HIP) Subjective Patient agreeable to participate with physical therapy. Pt's present for session. Admission Diagnosis: Left hip degenerative joint disease M16.11 Treatment Diagnosis: Pain, decreased ROM/strength, and impaired mobility status post left DEEPA. Procedures/Diagnostics Affecting Therapy: Procedure(s): Left - Left total hip arthroplasty direct anterior approach See chart. All relevant imaging, procedures, and diagnostics reviewed prior to PT evaluation. Pertinent PMHx: COPD, HEMANT, chronic fatigue Functional Level Prior to Admit: Patient independent with all mobility and ADLs Pain: 0/10 Precautions: OI PT hip precaution: No hip precaution secondary to surgical approach. Ambulation only. WBAT Current Living Situation/Social History: Patient lives with spouse one level home with 3 stairs to enter with rail and with a basement. Durable Medical Equipment Owned: Single end cane Front wheeled walker Patient's Goal(s): swim, attend a [email or web address] game Objective Cognition: Alert and Cooperative Functional Mobility Assessment Supine to Sit: standby assist Sit to Supine: standby assist Bed Modification: none - head of bed flat, no used of bed rail Sit<>Stand: standby assist - cues for hand placement Gait: Patient ambulated 250 ft with FWW and standby assist. Gait pattern: reciprocal pattern, slight pause between steps. Cues for increased WB through UE to improve stability of L hip. Stairs: N/T Tests and Measures: Motor/Sensation: Patient was able to elicit quad set, patient was able to elicit SLR with examination. Patient also demonstrates sensation of BLE WFL for initiation of mobility. Strength/Range of Motion Assessment: Lower Extremity Strength: Right: WNL Left: approx 2/5 hip flexion; knee/ankle WNL and Upper Extremity Function: WNL Intervention: Therapeutic Activity: Skilled therapeutic education, certified addiction counselor and activity modification was providedto patient for the purpose and intent of improving functional mobility and activities of daily living. Therapist provided education regarding the following topics; Bed mobility- assisted patient with bed transition where education was provided to improve patient understanding of associated post operative precaution with bed mobility for home negotiation. Patient required SB assistance with bed mobility today and demonstrated good understanding of education. Car transfers, shower transfers. Vitals/Observations/Response to Treatment: No complaints of dizziness/lightheadedness No complaints or indications of shortness of breath Patient/Caregiver Education: Ambulation only- DEEPA: Education provided on fall avoidance within home and DME needs; frequency of ambulation every 1-1.5 hours for 5 minutes with walker and as appropriate progression to cane, icingevery hour for 20-30 minutes during the day; avoidance of over-doing activity; elevation on multiple pillows to decrease swelling and safe coaching handling techniques as well as review of total hip p recautions set forth by surgeon. Educated on surgeon preference for ambulation only for post operative activity. Barriers to Learning: None Evaluation, assessment, goals, and plan of care discussed with patient and spouse. The patient and spouse received written information, verbal information, and a demonstration. The opportunity to ask questions was offered. The patient verbalized and demonstrated good understanding verbalized good understanding. Interdisciplinary Communication: Evaluation, goals, and plan of care discussed with nursing. Assessment/Plan Patient is a 68 year old female with pain, decreased ROM/Strength and impaired mobility status postleft DEEPA. Patient was limited by pain in Hip with mobility prior to surgery. Today, the patient hasgood tolerance to session and requires SB assistance for mobility with use of FWW. Throughout visit, PT observed incision site for drainage- no concerns to note. Patient is appropriate for skilled physical therapy services. Barriers to Discharge Home: No anticipated barriers PLAN OF CARE Recommendations for Discharge: Home with caregiver / Family support Anticipated DME Needs for Discharge: patients has all necessary AD's Goals to be met by discharge from facility Goals to be met by patient discharge: Patient will ambulate 120 + feet with SBA/independent and appropriate assistive device. Patient will demonstrate modified independence with bed, chair and car transfer while maintaining hip precautions as applicable. Patient will demonstrate 3+ stairs with SBA/independent with appropriate assistive device. Patient will demonstrate/verbalize understanding of post op HEP, precautions, fall avoidance education and recommendations for home s/p DEEPA. Rehab Potential: Good Frequency of Physical Therapy Recommended: 1-2x follow up treatment until discharge Planned interventions may consist of any combination of the following: Therapeutic Exercise (strength/range of motion) Therapeutic Activities (transfer training/functional mobility) Gait Training Neuromuscular Re-education Manual Therapy Patient/Caregiver Education Home Exercise Program Self-Care/Home Management (ADL's) PT Total Treatment Time: 40 minutes Evaluation Low - Complexity (89995) Therapeutic Activities (14983) = 20 minutes Gait Training (41752) = 5 minutes * Care Plan - Luz Lin RN - 05/05/2024 6:12 PM CDT Patient Goals: The patient centered goal for this shift:: Pain management; ambulate (05/05/24 1514). Evaluation of patient goal progress Pt progressing toward goals. Procedure(s): Left - Left total hip arthroplasty direct anterior approach Surgeon(s): Rhianna Hensley PA-C O'Neill, Owen R, MD Shearer, Erica B, PA-C Day of Surgery Pain/Comfort: Pain score 4-5/10 as block wore off. Prn oxy given x1. Upon reassessment, pt rates pain 1/10, Meds given, and Ice packs Assessment/Interventions: Head-to-toe exceptions BP soft, pt asymptomatic. VSS, Denies nausea, BS present, voiding wnl, frequently using IS, coughing and deep breathing, LS clear, although pt reportsa congested cough that was present prior to surgery, but reports seems to have been exacerbated following surgery. Strong dorsi/plantar flexion, CMS intact , and Dressing ABD CDI Activity: Ambulation information up assist x1 w/ walker and gait belt, up to chair, and PT Goals/Discharge Plan: Pt will discharge home tomorrow w/ family. * Brief Op Note - Hilda Godron MD - 05/05/2024 2:17 PM CDT [facility] Pre-Op Diagnosis: Left hip degenerative joint disease M16.12, CPT: 28446 Post-Op Diagnosis: Same Procedure(s): Left direct anterior total hip arthroplasty Anesthesia Type: General Surgeons and Role: * Hilda Gordon MD - Primary * Mary Kent PA-C - Assisting * Rhianna Hensley PA-C - Assisting * Radha Louis PA-C - Assisting Estimated Blood Loss: 400 mL Specimen(s): No Specimens Collected Complications: None Implant(s): Implant Name Type Inv. Item Serial No. Hand Box Folder Lot No. [id number] No. Used Action CUP ACET 52MM PINNACLE SECTOR II - [id number] CUP ACET 52MM PINNACLE SECTOR II NA DEPUY [id number] Implanted APEX HOLE ELIMINATOR PS - [id number] APEX HOLE ELIMINATOR PS NA DEPUY [id number] Left 1 Implanted LINER ACET ALTRX 36MM X 52MM NEUTRAL - [id number] LINER ACET ALTRX 36MM X 52MM NEUTRAL NA DEPUY [id number] Left 1 Implanted SCREW BONE CANCELLOUS 6.5MM X 35MM - [id number] SCREW BONE CANCELLOUS 6.5MM X 35MM NA DEPUY [id number] Left 1 Implanted SCREW BONE CANCELLOUS 6.5MM X 20MM - [id number] SCREW BONE CANCELLOUS 6.5MM X 20MM NA DEPUY [id number] Left 1 Implanted SCREW BONE CANCELLOUS 6.5MM X 15MM - [id number] SCREW BONE CANCELLOUS 6.5MM X 15MM NA DEPUY [id number] Left 1 Implanted STEM FEMORAL ACTIS DUOFIX SZ 4 HIGH - [id number] STEM FEMORAL ACTIS DUOFIX SZ 4 HIGH NA DEPUY [id number] Left 1 Implanted HEAD FEMORAL BIOLOX DELTA SZ 36 +1.5MM - [id number] HEAD FEMORAL BIOLOX DELTA SZ 36 +1.5MM NA [id number] Left 1 Implanted Plan: DC home POD1 w/family assist. DVT prophylaxis w/ASA 325mg QD x6wks. Hilda Gordon MD All surgical medications, procedures, specimens, and imaging performed in the operating room are onthe order of the operating physician(s). See other operative note for full details * Plan of Care - Lexie Ritchie APRN, FIRMWARE ENGINEER - 04/21/2024 9:25 AM CDT PREOPERATIVE ASSESSMENT NOTE Procedure(s): Left total hip arthroplsty direct anterior approach Date of Surgery: 05/05/24 Post-op appointment scheduled with Hilda Gordon MD at the [place] office on 05/26/24 at 2:10pm Patient's goals after surgery: Swimming, attending a Cig[employer] Patient's concerns with upcoming surgery: None H&P Patient's pre-operative history and physical with their primary care physician was reviewed. From that, the following should be noted: -Patient has been medically optimized prior to upcoming surgery -Plans to see pulmonology in June 2024, mild COPD visualized on CXR. No current treatment Antibiotic use in last 14 days? no Allergies were reviewed: Morphine-rash, Sulfa-rash, alendronate-chest pain, Bactrim-rash Significant past medical history pertinent to surgery: COPD, HEMANT with dental appliance, chronic fatigue Labs were reviewed and discussed, notably: Labs to be one on 04/26 HGB: Na: K: Cr: GFR: Glucose: Hgb A1c: History of blood clots? no DVT Prophylaxis Medication Plan: ASA 325mg daily x6 weeks Prior to Admission Medications: Patient will continue the following medications: Eye drops Patient will hold the following medications: Meloxicam They understand all vitamin supplements and herbal medications should be stopped 7 days prior to surgery. They understand they should not use any aspirin, aspirin-containing products, or anti-inflammatory medication for 7 days prior to surgery. They are able to continue to use Tylenol as needed up until the day before surgery. Guidebook reference to medications was given to patient (pages 7 & 19). Patient's code status was reviewed and is Full Code. Patient does not meet criteria for hospitalist comanagement. Post-Operative Discharge Planning Patient agrees with: Anticipated discharge on post-op day 1 Anticipated time of discharge between 9:00AM-12:00PM with their tank driver arriving by 8:00AM Manager Delivery: Eric Discharge location: Home Anticipated Home Health Services: None Senior Treasury Consultant/Family member available after discharge: Eric (was not present for this discussion) In the event of a concern arising after surgery, the patient was provided with the following information: During business hours, call surgeon's landcare officer, Anita Marin at [phone]. After business hours, call the on-call provider at [phone]. [facility] was discussed. They were asked to first contact [facility] for continuity of care prior to going to another urgent care or ER for issues related to their surgery. They were instructed to go to the ER promptly for any medical emergency that may arise after discharge. Further education was provided to the patient on the following topics and corresponding page numbers from the guidebook were given: CHG Soap (Hibiclens, etc) Page 22 Patient will purchase soap prior to surgery. They will follow theinstructions for showering with the soap the night before surgery and the morning of surgery. Assistive Devices Page 17/51 They understand their population health coach should bring their assistive device to their inpatient room after surgery. If they do not have one, their therapist will dispense one as needed. Dental Appointments Page 12 We discussed holding off on any routine dental work for 3 months. Following that timeframe, the patient understands they will use antibiotics one hour prior to any dental work, this includes routine cleanings (Amoxicillin 500mg - 4 tablets). Anesthesia Page 24 The anesthesiologist will discuss the anesthesia care plan with the patient the day of surgery. Incision/Dressing Care Page 33/42 We discussed the type of dressing the patient can expect after surgery as well as how to care for it, how to recognize increased drainage or bleeding, as well as bathing after surgery. They understand that bruising is normal after total joint surgery and will migrate down their extremity in the week following surgery. Post-Op Medications Page 29, 32, 39-41, 54(knee) 56(hip) We discussed the patient's individualized post-operative medication plan and each medication was explained and questions were answered. Guidebook references were given. The patient will likely discharge home with the following medications, patient specific dosing willbe determined post-operatively: ASPIRIN - they understand this medication should not be combined with other medication containing aspirin products and will replace any other aspirin they may be taking. TYLENOL - this medication helps with pain. They will take Tylenol scheduled as long as they have pain. Most patients typically need this medication for 2-3 weeks but some may need it up to 6-8 weeks.Tylenol can be taking safely with the narcotic pain medication, anti-inflammatory, and aspirin. MOBIC - this is an anti-inflammatory medication that will be taken as prescribed after surgery. They understand they will not take another anti-inflammatory while taking this medication. PROTONIX - this is a stomach protectant. They will take this medication as long as they are taking the anti-inflammatory medication. OXYCODONE - this is a narcotic pain medication and should be used sparingly but used as needed for pain. They understand this is the first of the medications used for pain that they should wean from.Most patients only need this medication for 1-2 weeks after surgery. We discussed titrating the narcotic based on their level of pain as follows: 1/2-1 tablet every 4-6 hours as needed for pain rating 3-6 (moderate pain) or 1-2 tablets every 4-6 hours as needed for pain rating 7- 10 (severe pain). This medication will not be used for pain rating <3 (mild pain). SENOKOT - this stool softener/laxative combination pill will be used after surgery as needed for constipation. 1-2 tablets can be taken as needed. They understand there is not an outpatient pharmacy at the [facility] and they will need to brain picker their post-operative medications at a pharmacy of their choice once they are discharged. Medication Refills Page 39 They understand it is best to allow at lest 48 hours for refills and that all refills can be requested through their pharmacy or directly with their surgeon's team. I did call out that any refills needed before the weekend will need to be submitted on . Pain Control Strategies Page 29 In addition to medication to control pain, we discussed non-medication strategies to helping with pain control and swelling (RICE). Icing and elevating often is extremely beneficial, we discussed a goal of 4-5 times a day for 20-30 minutes at a time. Swelling Page 31/35 Swelling will last at least 3-4 months and take a year to be as good as it's going to get. The operative side may never completely look the same as it did prior to surgery. It is normal for the swelling to cause stiffness in the morning and increase throughout the day with the most swelling being present in the evening. Swelling does go with gravity so the lower leg/arm or foot/hand will be swollen too. If swelling increases dramatically, this typically means your are being a little too active. Constipation Page 32/40 We discussed this is very common after surgery secondary to anesthesia, inactivity, and narcotic pain medication. In addition to the prescribed medication we discussed the useof Miralax, probiotics, prunes/prune juice, fiber rich diet, and hydration. In addition, increasingactivity as they are able will be helpful. They understand if they are having significant trouble they can try magnesium citrate, a suppository, or a Fleet enema. DVT Page 43 We discussed the signs, symptoms, and prophylactic treatment for DVTs post-operatively.We also discussed the importance of recognizing and reporting these symptoms. They understand they should call the office right away to report any concern for post-operative DVT. Activity Post-Operatively Page 35, 50(hip) 55(knee) The patient understands it is best to return to activity slowly and follow the instructions given to them by their surgeon's team. Having an active recovery and increasing activity as pain allows will also help reduce complications (pain, swelling, DVT, etc). General Day of Surgery Timeline Page 23 I briefly ran through what they can expect on the day of surgery after arriving at the [facility]. Avoiding a Delayed Surgery Page 10 I gave them this reference to use between now and surgery to avoid their surgery being delayed or cancelled. Lexie Ritchie APRN, TAMANNA DEANGELO Rounder for [facility] documented in this encounter Plan of Treatment Not on file documented as of this encounter Procedures Procedure Name Priority Date/Time Associated Diagnosis Comments HEMOGLOBIN Routine 05/06/2024 5:27 AM CDT XR HIP LEFT 2 OR 3 VIEWS W PELVIS Routine 05/05/2024 2:20 PM CDT S/P total left hip arthroplasty XR C ARM FLUORO Routine 05/05/2024 12:59 PM CDT S/P total left hip arthroplasty TOTAL HIP REPLACEMENT 05/05/2024 10:56 AM CDT Left hip degenerative joint disease M16.11 Case Notes Depuy actis Orthogrid Special Needs no known drug allergies EKG 12-LEAD DICK 05/05/2024 9:32 AM CDT documented in this encounter Results * (ABNORMAL) HEMOGLOBIN (05/06/2024 5:27 AM CDT) HGB 10.0(L) 12.0 - 16.0 g/dl 05/06/2024 5:50 AM CDT [facility] Blood BLOOD SPECIMEN / Unknown Venipuncture / Unknown 05/06/2024 5:27 AM CDT 05/06/2024 5:43 AM CDT Hilda Gordon MD EC HEMATOLOGY ORDERABLES Final Result Performing Organization Address City/State/[facility] Co de Phone Number [facility] [address] [place] [address] * XR HIP LEFT 2 OR 3 [...] Mcarthur MD Report Date: 05/05/2024 2:35 PM Hilda Gordon MD EC DIAGNOSTIC IMAGING ORDERABL ES Final [...] DIAGNOSTIC IMAGING ORDER CORKY Final Result * EKG 12-LEAD (05/05/2024 9:32 AM CDT) Ventricular Rate 59 BPM RMCMUSE Atrial Rate 59 BPM RMCMUSE P-R Interval 178 ms RMCMUSE QRS Duration 146 ms RMCMUSE QT 478 ms RMCMUSE QTc 473 ms RMCMUSE P Jachin 67 degrees RMCMUSE R Jachin -26 degrees RMCMUSE T Jachin 109 degrees RMCMUSE 05/05/2024 9:32 AM CDT 05/05/2024 2:43 PM CDT Narrative RMCMUSE - 05/05/2024 2:43 PM CDT Confirming Doc Marlon Angeles Sinus bradycardia Left bundle branch block Abnormal ECG No previous ECGs available Procedure Note Marlon Angeles MD - 05/05/2024 Confirming Doc Marlon Angeles Sinus bradycardia Left bundle branch block Abnormal ECG No previous ECGs available us Hilda Gordon MD IP ECG ORDERABLES Final Result RMCMUSE documented in this encounter Visit Diagnoses Diagnosis S/P total left hip arthroplasty- Primary S/P total left hip arthroplasty documented in this encounter Administered Medications Inactive Administered Medications Medication Order MAR Action Action Date Dose Rate Site acetaminophen (Tylenol) tablet 1,000 mg 1,000 mg, Oral, ONCE, 1 dose, On Fri05/05/24 at 0930 Given 05/05/2024 9:47 AM CDT 1,000 mg acetaminophen (Tylenol) tablet 1,000 mg 1,000 mg, Oral, 3 TIMES DAILY, First dose on Fri05/05/24 at 1800, Until Discontinued Given 05/06/2024 8:58 AM CDT 1,000 mg Given 05/05/2024 7:11 PM CDT 1,000 mg aspirin tablet 325 mg 325 mg, Oral, ONCE DAILY, First dose on Fri05/06/24 at 0900, Until Discontinued Given 05/06/2024 8:59 AM CDT 325 mg ceFAZolin (ANCEF) 2 g in dextrose 4% IVPB 100 mL 2 g, Intravenous, at 200 mL/hr, *EVERY 8 HOURS, 2 doses, First dose on Fri05/05/24 at 1900, Last dose on Fri05/06/24 at 0300, Indication? surgical prophylaxis New Bag 05/06/2024 2:52 AM CDT 2 g 200 mL/hr New Bag 05/05/2024 7:12 PM CDT 2 g 200 mL/hr diphenhydrAMINE (Benadryl) capsule 25 mg 25 mg, Oral, EVERY 4 HOURS NEEDED, Starting on Fri05/05/24 at 1457, Until Fri05/06/24 at 1557, Itching diphenhydrAMINE (Benadryl) injection 12.5-25 mg 12.5-25 mg, IV Push, EVERY 4 HOURS NEEDED, Starting on Fri05/05/24 at 1457, Until Fri05/06/24 at 1557, Itching ethyl alcohol nasal 62 % swab Nasal, ONCE, 1 dose, On Fri05/05/24 at 0930 Given 05/05/2024 9:49 AM CDT 2 Swabs ethyl alcohol nasal 62 % swab Nasal, 2 (two) times daily, First dose on Fri05/05/24 at 2100, Until Discontinued Given 05/06/2024 9:03 AM CDT Given 05/05/2024 8:38 PM CDT 1 Swab HYDROmorphone (Dilaudid) injection 0.5 mg 0.5 mg, IV Push, EVERY 10 MIN NEEDED, 8 doses, Starting on Fri05/05/24 at 1255, Until Fri05/05/24 at 1436, Moderate Pain (4-6) Given 05/05/2024 2:01 PM CDT 0.5 mg hydrOXYzine (VISTARIL) injection 25 mg 25 mg, Intramuscular, NEEDED, 2 doses, Starting on Fri05/05/24 at 1255, Until Fri05/05/24 at 1436, Other, augmented effects of narcotics muscle relaxant, anxiety, pruritus Given 05/05/2024 2:04 PM CDT 25 mg Right Thigh ketorolac (TORADOL) injection 15 mg 15 mg, IV Push, *EVERY 6 HOURS, 4 doses, First dose on Fri05/05/24 at 2000, Last dose on Fri05/06/24 at 1400 Given 05/06/2024 8:58 AM CDT 15 mg Given 05/06/2024 2:52 AM CDT 15 mg Given 05/05/2024 8:24 PM CDT 15 mg lactated ringers infusion 10-50 mL/hr, Intravenous, CONTINUOUS, Starting on Fri05/05/24 at 0930, Until Fri05/06/24 at 1557 New Bag 05/05/2024 1:30 PM CDT Restarted 05/05/2024 11:01 AM CDT Continued From PreOp-(Anes) 05/05/2024 10:56 AM CDT 15 mL/hr New Bag 05/05/2024 9:45 AM CDT 15 mL/hr 15 mL/hr lactated ringers infusion Intravenous, at 75 mL/hr, CONTINUOUS, Starting on Fri05/05/24 at 1500, Until Fri05/06/24 at 1557 New Bag 05/05/2024 9:22 PM CDT 75 mL/hr Restarted 05/05/2024 3:00 PM CDT 75 mL/hr latanoprost (Xalatan) 0.005 % ophthalmic solution 1 Drop 1 Drop, Both Eyes, AT BEDTIME, First dose (after last modification) on Fri05/05/24 at 2200, Until Discontinued Given 05/05/2024 8:24 PM CDT 1 Drop ondansetron (Zofran ODT) disintegrating tablet 4 mg 4 mg, Oral, EVERY 6 HOURS NEEDED, Starting on Fri05/05/24 at 1457, Until Fri05/06/24 at 1557, Nausea, Vomiting ondansetron (Zofran) injection 4 mg 4 mg, IV Push, EVERY 6 HOURS NEEDED, Starting on Fri05/05/24 at 1457, Until Fri05/06/24 at 1557, Nausea, Vomiting oxyCODONE (Roxicodone) immediate release tablet 2.5-5 mg 2.5-5 mg, Oral, EVERY 4 HOURS NEEDED, Starting on Fri05/05/24 at 1457, Until Fri05/06/24 at 1557, Moderate Pain (4-6), Severe Pain (7-10) Given 05/06/2024 11:35 AM CDT 2.5 mg Given 05/06/2024 6:21 AM CDT 2.5 mg Given 05/05/2024 11:27 PM CDT 2.5 mg Given 05/05/2024 3:25 PM CDT 2.5 mg pantoprazole (Protonix) tablet 20 mg 20 mg, Oral, ONCE DAILY, First dose on Fri05/05/24 at 1600, Until Discontinued Given 05/06/2024 8:58 AM CDT 20 mg Given 05/05/2024 3:25 PM CDT 20 mg pregabalin (Lyrica) capsule 75 mg 75 mg, Oral, ONCE, 1 dose, On Fri05/05/24 at 0930 Given 05/05/2024 9:47 AM CDT 75 mg prochlorperazine (COMPAZINE) injection 5 mg 5 mg, IV Push, EVERY 6 HOURS NEEDED, Starting on Fri05/05/24 at 1457, Until Fri05/06/24 at 1557, Nausea, Vomiting prochlorperazine (Compazine) tablet 5 mg 5 mg, Oral, EVERY 6 HOURS NEEDED, Starting on Fri05/05/24 at 1457, Until Fri05/06/24 at 1557, Nausea, Vomiting senna-docusate (Senokot-S) 8.6-50 MG per tablet 1 Tablet 1 Tablet, Oral, 2 TIMES DAILY, First dose on Fri05/05/24 at 2000, Until Discontinued Given 05/06/2024 8:59 A M CDT 1 Tablet Given 05/05/2024 8:24 PM CDT 1 Tablet sodium chloride 0.9% IV FLUSH (NS) SYRINGE 5 mL 5 mL, IV Flush, EVERY 8 HOURS, First dose on Fri05/05/24 at 1500, Until Discontinued Given 05/05/2024 9:22 PM CDT 5 mL documented in this encounter Discontinued Medications Medication Sig Discontinue Reason Start Date End Da te Latanoprost 0.005 % Emulsion Apply 1 Drop to eye every evening. Both eyes Deleted via home med review 05/03/2024 documented as of this encounter Historical Medications * This list may reflect changes made after this encounter. latanoprost (Xalatan) 0.005 % ophthalmic solution Place 1 Drop into both eyes at bedtime. Latanoprost 0.005 % Emulsion Apply 1 Drop to eye every evening. Both eyes 05/03/2024 added in this encounter Active and Recently Administered Medications Times are shown in CDT. Scheduled Medication Order 05/04/2024 05/05/2024 05/06/2024 acetaminophen (Tylenol) tablet 1,000 mg (COMPLETED) 1,000 mg, Oral, ONCE, 1 dose, On Fri05/05/24 at 0930 0947 (Given - Provider: Leidy Leonard, NUBIA) acetaminophen (Tylenol) tablet 1,000 mg 1,000 mg, Oral, 3 TIMES DAILY, First dose on Fri05/05/24 at 1800, Until Discontinued 1910 (Given - Provider: Luz Lin RN) 0858 (Given - Provider: Noni Kirkpatrick RN) aspirin tablet 325 mg 325 mg, Oral, ONCE DAILY, First dose on Fri05/06/24 at 0900, Until Discontinued 858 (Given - Provid er: Noni Kirkpatrick RN) ceFAZolin (ANCEF) 2 g in dextrose 4% IVPB 100 mL (COMPLETED) 2,000 mg, Intravenous, at 200 mL/hr, ONCE, 1 dose, On Fri05/05/24 at 0930, Indication? surgical prophylaxis 1106 (Given - Provider: Darius Mendoza APRN, MANAGING PRINCIPAL) ceFAZolin (ANCEF) 2 g in dextrose 4% IVPB 100 mL (COMPLETED) 2 g, Intravenous, at 200 mL/hr, *EVERY 8 HOURS, 2 doses, First dose on Fri05/05/24 at 1900, Last dose on Fri05/06/24 at 0300, Indication? surgical prophylaxis 191 (New Bag - Provider: Luz Lin RN)1950 (Stopped - Provider: Teresa Royal RN) 025 (New Bag - Provider: Teresa Royal RN)033 (Stopped - Provider: Teresa Royal RN) ethyl alcohol nasal 62 % swab (COMPLETED) Nasal, ONCE, 1 dose, On Fri05/05/24 at 0930 0949 (Given - Provider: Leidy Leonard RN) ethyl alcohol nasal 62 % swab Nasal, 2 (two) times daily, First dose on Fri05/05/24 at 2100, Until Discontinued 2037 (Given - Provider: Teresa Royal RN) 09 (Given - Provider: Noni Kirkpatrick RN) ketorolac (TORADOL) injection 15 mg 15 mg, IV Push, *EVERY 6 HOURS, 4 doses, First dose on Fri05/05/24 at 2000, Last dose on Fri05/06/24 at 1400 2023 (Given - Provider: Teresa Royal RN) 025 (Given - Provider: Teresa Royal RN)0858 (Given - Provider: Noni Kirkpatrick, NUBIA) latanoprost (Xalatan) 0.005 % ophthalmic solution 1 Drop 1 Drop, Both Eyes, AT BEDTIME, First dose (after last modification) on Fri05/05/24 at 2200, Until Discontinued 2023 (Given - Provider: Teresa Royal RN) pantoprazole (Protonix) tablet 20 mg 20 mg, Oral, ONCE DAILY, First dose on Fri05/05/24 at 1600, Until Discontinued 1524 (Given - Provider: Luz Lin RN) 0858 (Given - Provider: Noni Kirkpatrick RN) polyethylene glycol 3350 (Glycolax, Miralax) packet 17 g 17 g, Oral, ONCE DAILY, First dose on Fri05/06/24 at 0900, Until Discontinued 09 (Not Given - Provider: Noni Kirkpatrick RN - Reason: Patient/Family refused) pregabalin (Lyrica) capsule 75 mg (COMPLETED) 75 mg, Oral, ONCE, 1 dose, On Fri05/05/24 at 0930 0947 (Given - Provider: Leidy Leonard RN) senna-docusate (Senokot-S) 8.6-50 MG per tablet 1 Tablet 1 Tablet, Oral, 2 TIMES DAILY, First dose on Fri05/05/24 at 2000, Until Discontinued 2023 (Given - Provider: Teresa Royal RN) 0859 (Given - Provider: Noni Kirkpatrick, NUBIA) sodium chloride 0.9% IV FLUSH (NS) SYRINGE 5 mL 5 mL, IV Flush, EVERY 8 HOURS, First dose on Fri05/05/24 at 1500, Until Discontinued 151 (Not Given - Provider: Luz Lin RN - Reason: IV Infusing)2121 (Given - Provider: Perla Robb RN) 0530 (Not Given - Provider: Teresa Royal RN - Reason: IV Infusing) tranexamic acid (Cyklokapron) 1000 mg in sodium chloride 0.7% 100 mL (premix) (COMPLETED) 1,000 mg, Intravenous, at 200 mL/hr, ONCE, 1 dose, On Fri05/05/24 at 0930 1108 (Given - Provider: Darius Mendoza APRN, MANAGING PRINCIPAL) tranexamic acid (Cyklokapron) 1000 mg in sodium chloride 0.7% 100 mL (premix) (COMPLETED) 1,000 mg, Intravenous, at 200 mL/hr, ONCE, 1 dose, On Fri05/05/24 at 0930 1306 (Given - Provider: Darius Mendoza APRN, DIXIE) Continuous Medication Order 05/04/2024 05/05/2024 05/06/2024 lactated ringers infusion 10-50 mL/hr, Intravenous, CONTINUOUS, Starting on Fri05/05/24 at 0930, Until Oralia 05/06/24 at 1557 0945 (New Bag - Provider: Leidy Leonard RN)1056 (Continued From PreOp-(Anes) - Provider: Darius Mendoza APRN, DIXIE)1100 (Paused - Provider: Darius Mendoza APRN, DIXIE - Comment: Switch to gravity)1101 (Restarted - Provider: Darius Mendoza APRN, DIXIE)1330 (New Bag - Provider: Darius Mendoza APRN, DIXIE)1339 (Anesthesia Volume Adjusted - Provider: Darius Mendoza APRN, DIXIE) 1557 (Due: Stopped - Provider: Epicuser Utility) lactated ringers infusion Intravenous, at 75 mL/hr, CONTINUOUS, Starting on Fri05/05/24 at 1500, Until Oralia 05/06/24 at 1557 1500 (Restarted - Provider: Luz Lin RN)2122 (New Bag - Provider: Perla Robb RN) 1557 (Due: Stopped - Provider: [employer]user Utility) PRN Medication Order 05/04/2024 05/05/2024 05/06/2024 bisacodyl (Dulcolax) suppository 10 mg 10 mg, Rectal, ONE TIME DAILY NEEDED, Starting on Fri05/05/24 at 1457, Until Fri05/06/24 at 1557, Constipation diphenhydrAMINE (Benadryl) capsule 25 mg(Linked Group 1) 25 mg, Oral, EVERY 4 HOURS NEEDED, Starting on Fri05/05/24 at 1457, Until Fri05/06/24 at 1557, Itching diphenhydrAMINE (Benadryl) injection 12.5-25 mg(Linked Group 1) 12.5-25 mg, IV Push, EVERY 4 HOURS NEEDED, Starting on Fri05/05/24 at 1457, Until Fri05/06/24 at 1557, Itching HYDROmorphone (Dilaudid) injection 0.25-0.5 mg 0.25-0.5 mg, IV Push, EVERY 2 HOURS NEEDED, Starting on Fri05/05/24 at 1457, Until Fri05/06/24 at 1557, Moderate Pain (4-6), Severe Pain (7-10) HYDROmorphone (Dilaudid) injection 0.5 mg (CANCELED) 0.5 mg, IV Push, EVERY 10 MIN NEEDED, 8 doses, Starting on Fri05/05/24 at 1255, Until Fri05/05/24 at 1436, Moderate Pain (4-6) 1401 (Given - Provider: Reta Gonsalves RN) hydrOXYzine (VISTARIL) injection 25 mg (CANCELED) 25 mg, Intramuscular, NEEDED, 2 doses, Starting on Fri05/05/24 at 1255, Until Fri05/05/24 at 1436, Other, augmented effects of narcotics muscle relaxant, anxiety, pruritus 1404 (Given - Provider: Reta Gonsalves RN) hydrOXYzine HCl (Atarax) tablet 10 mg 10 mg, Oral, EVERY 6 HOURS NEEDED, Starting on Fri05/05/24 at 1457, Until Fri05/06/24 at 1557, Other, Muscle Spasms magnesium hydroxide (Milk of Magnesia) 400 MG/5ML suspension 30 mL 30 mL, Oral, ONE TIME DAILY NEEDED, Starting on Fri05/05/24 at 1457, Until Fri05/06/24 at 1557, Constipation naloxone (Narcan) injection 0.1 mg 0.1 mg, IV Push, EVERY 3 MINUTES NEEDED, Starting on Fri05/05/24 at 1457, Until Fri05/06/24 at 1557, Respiratory Depression, Other, YARDING ENGINEER depression ondansetron (Zofran ODT) disintegrating tablet 4 mg(Linked Group 2) 4 mg, Oral, EVERY 6 HOURS NEEDED, Starting on Fri05/05/24 at 1457, Until Oralia 05/06/24 at 1557, Nausea, Vomiting ondansetron (Zofran) injection 4 mg(Linked Group 2) 4 mg, IV Push, EVERY 6 HOURS NEEDED, Starting on Fri05/05/24 at 1457, Until Fri05/06/24 at 1557, Nausea, Vomiting oxyCODONE (Roxicodone) immediate release tablet 2.5-5 mg 2.5-5 mg, Oral, EVERY 4 HOURS NEEDED, Starting on Fri05/05/24 at 1457, Until Fri05/06/24 at 1557, Moderate Pain (4-6), Severe Pain (7-10) 1525 (Given - Provider: Luz Lin RN)2327 (Given - Provider: Teresa Royal RN) 0621 (Given - Provider: Brittany Oh RN)1135 (Given - Provider: Luz Lin, NUBIA) prochlorperazine (COMPAZINE) injection 5 mg(Linked Group 3) 5 mg, IV Push, EVERY 6 HOURS NEEDED, Starting on Fri05/05/24 at 1457, Until Oralia 05/06/24 at 1557, Nausea, Vomiting prochlorperazine (Compazine) tablet 5 mg(Linked Group 3) 5 mg, Oral, EVERY 6 HOURS NEEDED, Starting on Fri05/05/24 at 1457, Until Fri05/06/24 at 1557, Nausea, Vomiting ROPivacaine (Naropin) 300 mg, EPINEPHrine (Adrenalin) 0.6 mg, ketorolac (TORADOL) 15 mg in sodium chloride 0.9% (NS) 100 mL solution (COMPLETED) 100 mL, Infiltration, ONCE NEEDED, 1 dose, Starting on Fri05/05/24 at 1000, Until Fri05/05/24 at 1255, Other, field block 1255 (Given - Provider: Hilda Gordon MD) sodium chloride 0.9% IV FLUSH (NS) SYRINGE 5 mL 5 mL, IV Flush, NEEDED, Starting on Fri05/05/24 at 1457, Until Fri05/06/24 at 1557, Other, IV Line Flushing sodium phophate (Fleet) 7-19 GM/118ML enema 1 Enema 1 Enema, Rectal, ONE TIME DAILY NEEDED, Starting on Fri05/05/24 at 1457, Until Fri05/06/24 at 1557, Constipation, For constipation refractory to SENAKOT-S or DULCOLAX vancomycin (Vancocin) injection (CANCELED) NEEDED, Starting on Fri05/05/24 at 1255, Until Fri05/05/24 at 1344 1255 (Given - Provider: Hilda Gordon MD) Linked Groups Order Group 1: diphenhydrAMINE (Benadryl) capsule 25 mgJump to med 25 mg, Oral, EVERY 4 HOURS NEEDED, Starting on Fri05/05/24 at 1457, Until Fri05/06/24 at 1557, Itching Or diphenhydrAMINE (Benadryl) injection 12.5-25 mgJump to med 12.5-25 mg, IV Push, EVERY 4 HOURS NEEDED, Starting on Fri05/05/24 at 1457, Until Fri05/06/24 at 1557, Itching Group 2: ondansetron (Zofran) injection 4 mgJump to med 4 mg, IV Push, EVERY 6 HOURS NEEDED, Starting on Fri05/05/24 at 1457, Until Fri05/06/24 at 1557, Nausea, Vomiting Or ondansetron (Zofran ODT) disintegrating tablet 4 mgJump to med 4 mg, Oral, EVERY 6 HOURS NEEDED, Starting on Fri05/05/24 at 1457, Until Fri05/06/24 at 1557, Nausea, Vomiting Group 3: prochlorperazine (Compazine) tablet 5 mgJump to med 5 mg, Oral, EVERY 6 HOURS NEEDED, Starting on Fri05/05/24 at 1457, Until Fri05/06/24 at 1557, Nausea, Vomiting Or prochlorperazine (COMPAZINE) injection 5 mgJump to med 5 mg, IV Push, EVERY 6 HOURS NEEDED, Starting on Fri05/05/24 at 1457, Until Oralia 05/06/24 at 1557, Nausea, Vomiting documented in this encounter Orders Medications Ordered That Yaakov ht Not Have Been Administered Count Last Ordered Date First Ordered Date bisacodyl (Dulcolax) suppository 10 mg 1 ceFAZolin (ANCEF) 2 g in dex trose 4% IVPB 100 mL 1 05/05/2024 diphenhydrAMINE (Benadryl) capsule 25 mg 1 05/05/2024 diphenhydrAMINE (Benadryl) i njection 12.5-25 mg 1 05/05/2024 diphenhydrAMINE (Benadryl) injection 25 mg 1 05/05/2024 ePHEDrine sulfate (Emerphed) injection 5-20 mg 1 05/05/2024 HYDROmorphone (Dilaudid) inj ection 0.25-0.5 mg 1 05/05/2024 HYDROmorphone (Dilaudid) injection 1 mg 1 0 05/05/2024 hydrOXYzine HCl (Atarax) tablet 10 mg 1 labetalol (Trandate) injection 5-25 mg 1 latanoprost (Xalatan) 0.005 % ophthalmic solution 1 Drop 1 05/05/2024 magnesium hydroxide (Milk of Magnesia) 400 MG/5ML suspension 30 mL 1 05/05/2024 meperidine (Demerol) injection 12.5 mg 1 naloxone (Narcan) injection 0.1 mg 2023 naloxone (Narcan) injection 0.2 mg 2023 ondansetron (Zofran ODT) dis integrating tablet 4 mg 1 05/05/2024 ondansetron (Zofran) injection 4 mg 05/05 phenylephrine (Biorphen) 0.5 MG/5ML injection 0.05 mg 1 05/05/2024 polyethylene glycol 3350 (Gl ycolax, Miralax) packet 17 g 1 05/05/2024 prochlorperazine (COMPAZINE) injection 10 mg 1 05/05/2024 prochlorperazine (COMPAZINE) injection 5 mg 1 05/05/2024 prochlorperazine (Compazine) tablet 5 mg 1 05/05/2024 ROPivacaine (Naropin) 300 mg , EPINEPHrine (Adrenalin) 0.6 mg, ketorolac (TORADOL) 15 mg in sodium chloride 0.9% (NS) 100 mL solution 1 05/05/2024 sodium chloride 0.9% IV FLUS H (NS) SYRINGE 5 mL 1 05/05/2024 sodium phophate (Fleet) 7-19 GM/118ML enema 1 Enema 1 05/05/2024 tranexamic acid (Cyklokapron ) 1000 mg in sodium chloride 0.7% 100 mL (premix) 2 05/05/2024 vancomycin (Vancocin) injection 1 4 Admission Count Last Ordered Date First Orde red Date ASSIGN TO OUTPATIENT 1 05/05/2024 Discharge Count Last Ordered Date First Orde red Date DISCHARGE PATIENT 1 05/05/2024 Nursing Count Last Ordered Date First Orde red Date ACTIVITY ORDER (SPECIFY) 5 05/05/2024 DISCHARGE DIET 1 05/05/2024 DISCHARGE INSTRUCTIONS 9 05/05/2024 FOLLOW UP 1 05/05/2024 NOTIFY PHYSICIAN (SPECIFY) 3 05/05/2024 POST OPERATIVE INSTRUCTIONS 2 05/05/2024 PROVIDE MEDICATION INSTRUCTIONS 6 RESTRICTIONS FOR PATIENT AFTER DISCHARGE 2 05/05/2024 WOUND CARE INSTRUCTIONS 3 05/05/2024 Consult Count Last Ordered Date First Orde red Date ANESTHESIA FOLLOW UP 1 05/05/2024 documented in this encounter Care Teams Airport Operations Supervisor Relationship Specialty Start Date End Date Elsewhere, Pcp PCP - General 04/19/24 documented as of this encounter
--- OUTSIDE RECORDS SUMMARY | 2024-07-14 12:43 | XMS_ITS ---
Author Organization [facility] Address [address] [place] [address] [address], [place] [address] Care Team Providers Care Quick Print Operator Name Role Phone NIKKI MINOR Unavailable [phone] REASON FOR VISIT Upper back, neck and shoulder pain, Pain and headaches at the back of the head, Facial pain, Limited opening, Day and night clenching Medications Medication SIG (Take, Route, Fr equency, Duration) Notes Start Date End Date Status valACYclovir HCl 1 GM Take by mouth estiven y DAILY. Do not substitute. 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 improving Plan Of Treatment Next Appt Details Follow Up: 8 weeks, Reason: recheck Provider Name:NIKKI Roque, 09/14/2024 01:00:00 PM, [address] [facility] [address], [place], [address], Procedure Notes * Category Sub-Category Detail Notes Appliance Recommendations Recommended ap pliance wear as follows YUE, during sleeplower YUE during the day if she is needing TMJ support while going through surgery and rehab Straps Gave straps to patie nt (# pairs) 16mm clear on the older YUE (6 pair)19mm clear on the newer YUE (4 pair) Exercises Exercise Recommendations increas e frequency of, TMJ decompression Providers Seen By Nikki Minor D.D.S., M.S. Dental Retail Advertising Executive Verna Vides, LDA, CTA Progress Notes * Neema HURTADOOB:[birth year] (68 yo F)Acc No.[id number]:05/03/2024 Patient:?Ninoska HURTADO Provider:?Nikki Minor D.D.S., M.S. :1955???Age:68 Y???Sex:Female D ate:05/03/2024 Address:[address] [place] [address] Subjective: * Chief Complaints: * ???Upper back, neck and shou lder painPain and headaches at the back of the headFacial painLimited openingDay and night clenching * HPI: ???Subjective:?Subjective?Patient presents for SINA? recheck and redelivery. She broke the YUE in January, she has been wearing her old one and it seems to be working ok. She is having left hip replacement in 2 days, and the pain is affecting her sleep. She has been in [place] helping her daughter going through cancer treatment this summer. ?Upper back- a little tight again ?Neck/shoulder pain- more in the last couple of weeks ?Headaches- none ?Facial pain- none ?Limited opening- not really ?CLenching/grinding- maybe more at night.?TMD Condition?stable since last office visit.?Sleep Quality?has been worse since their last appointment.?Changes in medical history?yes: having hip surgery.?Changes in medication?none.?Appliance Status:?Patient wears?SINA, during sleep.?Current Exercises:?Patient exercises?Not been doing any exercises lately.?[place] And STOP BANG Scores:?[place] Questionnaire Score?7.? * Medical History:? * Surgical History:? * Hospitalization/Major Diagno stic Procedure:? * Medications:?TakingvalACYclo vir HCl 1 GM Tablet Take by mouth daily DAILY. Do not substitute. Oral 0 Taking valACYclovir HCl 1 GM Tablet Take by mouth daily DAILY. Do not substitute. Oral 0 Objective: * Vitals:? * Examination: ???Mandibular Range of Motion: ?Opening (mm)?33.5.?Opening; Discomfort?bilateral.?Right (mm)?6.?Right: Noise?right.?Left (mm)?5.?Protrusion (mm)?7.?Measurement of tongue tip to incisive papilla (mm)?32.?Palpations at Recheck: ?[place]--origin?Right: 0, Left: 0.?[place]--body?Right: 0, Left: 0.?[place]--insertion?Right: 1, Left: 1.?Retromandibular?Right: 0, Left: 0.?Anterior Temporalis?Right: 0, Left: 0.?Middle Temporalis?Right: 1, Left: 1.?Posterior Temporalis?Right: 0, Left: 0.?Occipital Area?Right: 0, Left: 0.?Posterior Digastric?Right: 0, Left: 0.?SCM?Right: 0, Left: 0.?TMJ Pain?Right: 0, Left: 0.?TMJ Clicking?Right: 0, Left: 0.?TMJ Crepitus?Right: 0, Left: 0.? 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 Symptoms stable Plan: * Treatment: * Procedures:?Appliance Recommendations:?Recommended appliance wear as follows?YUE, during sleep ?lower YUE during the day if she is needing TMJ support while going through surgery and rehab.?Straps:?Gave straps to patient (# pairs)?16mm clear on? the older YUE (6 pair) ?19mm clear on the newer YUE (4 pair).?Exercises:?Exercise Recommendations?increase frequency of, TMJ decompression.?Providers:?Seen By?Nikki Minor D.D.S., M.S..?Dental Retail Advertising Executive?VÍCTOR Garcia, CTA.? * Procedure Codes:? * Follow Up:?8 weeks (Reason: recheck) * Billing Information: * Visit Code:? 18493 Office Visit, Est Pt., Level 2. * Procedure Codes:? * Sign off status: Completed true * Provider:?Nikki Minor D.D.S., M.S. Da te:?05/03/2024 Generated for Cliffordi ng/Fadarnell/eTransmitting on:?07/14/2024 12:43 PM CDT History and Physical Notes * HPI (History of Present Illness) Category Sub-Category Detail Notes [place] And STOP BANG Scores [place] Questionnaire Score 7 Appliance Status Patient wears SINA, during sl eep Current Exercises Patient exercises Not been doi ng any exercises lately Subjective Subjective Patient presents for SINA recheck and redelivery. She broke the YUE in January, she has been wearing her old one and it seems to be working ok. She is having left hip replacement in 2 days, and the pain is affecting her sleep. She has been in [place] helping her daughter going through cancer treatment this summer. Upper back- a little tight again Neck/shoulder pain- more in the last couple of weeks Headaches- none Facial pain- none Limited opening- not really CLenching/grinding- maybe more at night TMD Condition stable since last of fice visit Sleep Quality has been worse since their last appointment Patient Comments Referred by Goals with orthodontic intervention incl ude Changes in medical history yes: having h ip surgery Changes in medication none Examination Category Sub-Category Detail Notes Palpations at Recheck [place]--origin Right: 0, Left: 0 [place]--body Right: 0, Left: 0 [place]--insertion Right: 1, Left: 1 Retromandibular Right: 0, Left: 0 Anterior Temporalis Right: 0, Left: 0 Middle Temporalis Right: 1, Left: 1 Posterior Temporalis Right: 0, Left: 0 Occipital Area Right: 0, Left: 0 Posterior Digastric Right: 0, Left: 0 SCM Right: 0, Left: 0 TMJ Pain Right: 0, Left: 0 TMJ Clicking Right: 0, Left: 0 TMJ Crepitus Right: 0, Left: 0 Mandibular Range of Motion Opening (mm) 33.5 Opening; Discomfort bilateral Right (mm) 6 Right: Noise right Left (mm) 5 Protrusion (mm) 7 Measurement of tongue tip to incisive pa james (mm) 32
--- OUTSIDE RECORDS SUMMARY | 2024-07-14 12:43 | XMS_ITS | Encounter Summary ---
Author Organization [facility] Address [address] [place] [address] Care Team Providers Care Chief Clerk Shelter Name Role Phone Reina Trammell MD Primary Care Provider [phone] Encounter Details Date Type Department Care Team (Latest Contact Info) Description 07/13/2024 Orders Only [facility] ProviderHolland [place] [address] Social History Tobacco Use Types Packs/Day Years [...] 11:00 AM CDT Appointment PULMONARY LAB AT [address] [address] 07/15/2024 1:00 PM CDT Office Visit [facility] [address] [place] [address] [phone] Shobha Mcarthur MD [facility] [address] [place] [address] [id number] documented as of this encounter Procedures Procedure Name Priority Date/Time Associated Diagnosis Comments IMAGING 07/13/2024 documented in this encounter Results * IMAGING (07/13/2024) Anatomical Region Laterality Modality Other Interface Provider MD DUMMY/OTHER/AR documented in this encounter Visit Diagnoses Not on filedocumented in this encounter Care Teams Chief Clerk Shelter Relationship Specialty Start [place] [address] [place] [address] PCP - General 03/05/16 documented as of this encounter
--- OUTSIDE RECORDS SUMMARY | 2024-07-14 12:43 | XMS_ITS | Encounter Summary ---
Author Organization [facility] Address [address] [address] Phone Care Team Providers Care Postal Sorting Officer Name Role Phone Elsewhere, Pcp Primary Care Provider Unavailabl e Reason for Visit * Auth/Cert (Routine) Specialty Diagnoses / Procedures Referred By Contac t Referred To Contact Diagnoses Left hip degenerative joint disease M16.11 Procedures TOTAL HIP REPLACEMENT Left total hip arthroplsty direct anterior approach Caleb Richards MD [facility] [address] [address] Phone: tel: fax: Referral ID Status Reason Start Date Expiration Date Visits Re quested Visits Authorized [id number] 1 1 Encounter Details Date Type Department Care Team (Late st Contact Info) Description 05/05/2024 10:56 AM CDT Anesthesia Event [facility] OR [address] [place] [address] [phone] Alfredo Jameson DO [address] [place] [address] [phone] Lowell Gasca MD [address] [place] [id number] Anesthesia Record Procedure Summary Procedure Name Responsible Anesthesiologist Anesthesia Start Time Anesthesia Stop Time Left total hip arthroplasty direct anterior approach (Left: Hip) Alfredo Jameson DO 05/05/24 1056 05/05/24 1345 Events Date Time Event Comment 05/05/2024 1031 PROTECTIVE CLOTHING ISSUER Ready 1031 AN Equip Check 1056 An Start The patient was reevaluated immediately prior to initiation of anesthesia. 1058 An Start Data 1100 An Induction 1103 An Intubation 1106 Anesthesia Ready 1326 Emergence Started 1336 An Extubation 1336 Start Supplemental O2 1339 an stop data 1339 MD Intraop Signature Intraop erative Record electronically signed by Alfredo Jameson DO 1345 An Stop Report given to the receiving RN. No apparent anesthesia complications at this time. Electronically signed by Darius Mendoza APRN, CRNA Meds Name Total propofol 20 mL VIAL 10 mg/mL (Diprivan) infusion 150 mg fentaNYL (Sublimaze) injection 0.05 mg/m L 50 mcg ondansetron (Zofran) injection 2 mg/mL 4 mg rocuronium (Zemuron) injection 10 mg/mL 100 mg dexamethasone (Decadron) injection 4 mg/ mL 10 mg ketamine (Ketalar) injection 10 mg/mL 20 mg ePHEDrine injection 50 mg/mL 25 mg lidocaine (Xylocaine) preservative free 2% injection 100 mg tranexamic acid (Cyklokapron ) 1000 mg in sodium chloride 0.7% 100 mL (premix) 1,000 mg tranexamic acid (Cyklokapron ) 1000 mg in sodium chloride 0.7% 100 mL (premix) 1,000 mg ceFAZolin (ANCEF) 2 g in dextrose 4% IVP B 100 mL 2,000 mg phenylephrine (Vazculep) 100 mcg/mL in s odium chloride 0.9% (NS) infusion 2,370 mcg HYDROmorphone (Dilaudid) injection 1 mg/ mL 1 mg ketorolac (Toradol) injection 30 mg/mL 1 5 mg sugammadex (Bridion) 100 mg/mL injection 200 mg lactated ringers infusion 1,100 mL albumin human 5% infusion 250 mL * Agents Name O2 Air Sevoflurane Inspired Sevoflurane * Blood No blood administrations on file. Lines, Drains, and Airways Type Details Placement Removal Wound 05/05/24; 1147; Inci adarsh; N; 1; Anterior, Left; Hip 05/05/24 1147 by Shobha Salmon RN Peripheral IV 05/05/24; No; 20; Le ft, Posterior; Hand; ChloraPrep; Anatomical landmarks; None; No Complications 05/05/24 0000 by Leidy Leonard RN 05/06/24 1117 by Luz Lin RN ETT 05/05/24; 1103 (zaki servin via procedure documentation); Ventilated by mask (1); Video laryngoscopy; ETT; Cuffed; 7; 3 (Packer); Oral; 1; 1; 22 cm 05/05/24 1103 by Darius Mendoza APRN, CRNA 05/05/24 1336 by Darius Mendoza APRN, DIXIE documented in this encounter Social History Tobacco Use Types Packs/Day Years Used Date Smoking Tobacco: Never Passive Smoke Exposure: Never Smokeless Tobacco: Never [facility] Utilities Answer Date Recorded In the [...] any time in the past 12 m [facility], were you homeless or living in a penitentiary (including now)? No 05/05/2024 EH IP Custom [...] on file documented as of this encounter Mental Status * Patient's Judgment Adequate to Safely Complete Daily Activities Answer Entry Date Author Yes 05/05/2024 3:06 PM CDT Luz Lin RN documented in this encounter OR Notes * Anesthesia Postprocedure Evaluation - Alfredo Jameson DO - 05/05/2024 5:50 PM CDT Procedure Summary Date: 05/05/24 Room / Location: [facility] [place] [facility] Anesthesia Start: 1056 Anesthesia Stop: 1345 Procedure: Left total hip arthroplasty direct anterior approach (Left: Hip) Diagnosis: (Left hip degenerative joint disease M16.11) Surgeons: Caleb Richards MD Responsible Provider: Lwoell Gasca MD Anesthesia Type: general ASA Status: 2 Anesthesia Type: general Vitals Value Taken Time BP 113/70 05/05/24 1431 Temp 37.1 ??C (98.8 ??F) 05/05/24 1345 Pulse 97 05/05/24 1433 Resp 8 05/05/24 1433 SpO2 91 % 05/05/24 1433 Vitals shown include unfiled device data. Patient Post-op disposition: inpatient floor planned admission Patient participation: patient able to participate Level of consciousness: awake and alert Pain score: 1 Pain management: adequate Airway patency: spontaneously maintained and patent Cardiovascular status: acceptable Respiratory status: acceptable Hydration status: no apparent hydration abnormalities No PONVDental findings: dentition unchanged No notable events documented. * Anesthesia Procedure Notes - Darius Mendoza APRN, CRNA - 05/05/2024 11:13 AM CDTAssociated Order(s): Airway Airway Date/Time: 05/05/2024 11:03 AM Urgency: elective Airway not difficult General Information and Staff Patient location during procedure: OR Performed by: Darius Mendoza APRN, CRNA Authorized by: Lowell Gasca MD Indications and Patient Condition Indications for airway [...] of other approaches attempted: 0 dentition unchanged * Anesthesia Preprocedure Evaluation - Alfredo Jameson DO - 05/05/2024 9:37 AM CDT Anesthesia Evaluation Patient has had previous anesthetics No history of anesthetic complications Pulmonary - normal exam (+) sleep apnea Obstructive Sleep Apnea total score: 3 Cardiovascular - normal exam ROS comment: Perfusion scan in 2017 normal Neuro/Psych - negative ROS GI/Hepatic/Renal - negative ROS Endo - negative ROS Other BMI Classification: normal (BMI 20-24.9) All allergies reviewed. Physical Exam Airway Mallampati: II TM distance: >3 FB Neck ROM: full Cardiovascular - normal exam Dental - normal exam Pulmonary - normal exam Anesthesia Plan ASA 2 Plan: general Technique: general endotracheal Induction: intravenous Anesthetic plan and risks discussed and informed consent obtained from: patient. Plan discussed with PROTECTIVE CLOTHING ISSUER and surgeon. PONV Plan PONV risk factors: female and non-smoker Calculated risk score: 2 Prevention/prophylaxis plan: Zofran and Decadron Patient is not DNR; Patient is not DNI; documented in this encounter Plan of Treatment Not on file documented as of this encounter Procedures Procedure Name Priority Date/Time Associated Diagnosis Comments ANE INTUBATION 05/05/2024 11:03 AM CDT documented in this encounter Results * ANE ETT AIRWAY (05/05/2024 11:03 AM CDT) Narrative Darius Mendoza APRN, CRNA - 05/05/2024 11:03 AM CDT [...] MD PROCEDURE/MINOR CALEB ORDERABLES F inal Result documented in this encounter Visit Diagnoses Not on filedocumented in this encounter Administered Medications Inactive Administered Medications Medication Order MAR Action Action Date Dose Rate Site albumin human 5% infusion Intravenous, CONTINUOUS INTRA-OP, Starting on Fri05/05/24 at 1108, Until Fri05/05/24 at 1345 New Bag 05/05/2024 11:08 AM CDT ceFAZolin (ANCEF) 2 g in dextrose 4% IVPB 100 mL 2,000 mg, Intravenous, at 200 mL/hr, ONCE, 1 dose, On Fri05/05/24 at 0930, Indication? surgical prophylaxis Given 05/05/2024 11:06 AM CDT 2,000 mg dexAMETHasone (Decadron) injection IV Push, NEEDED, Starting on Fri05/05/24 at 1107, Until Fri05/05/24 at 1345 Given 05/05/2024 11:07 AM CDT 10 mg ePHEDrine sulfate injection IV Push, NEEDED, Starting on Fri05/05/24 at 1105, Until Fri05/05/24 at 1345 Given 05/05/2024 12:58 PM CDT 5 mg Given 05/05/2024 12:19 PM CDT 10 mg Given 05/05/2024 11:05 AM CDT 10 mg fentaNYL (Sublimaze) injection IV Push, NEEDED, Starting on Fri05/05/24 at 1101, Until Fri05/05/24 at 1345 Given 05/05/2024 11:01 AM CDT 50 mcg HYDROmorphone (Dilaudid) injection IV Push, NEEDED, Starting on Fri05/05/24 at 1152, Until Fri05/05/24 at 1345 Given 05/05/2024 12:30 PM CDT 0.5 mg Given 05/05/2024 11:52 AM CDT 0.5 mg ketamine (Ketalar) 10 MG/ML injection IV Push, NEEDED, Starting on Fri05/05/24 at 1236, Until Fri05/05/24 at 1345 Given 05/05/2024 1:35 PM CDT 10 mg Given 05/05/2024 12:36 PM CDT 10 mg ketorolac (Toradol) injection IV Push, NEEDED, Starting on Fri05/05/24 at 1318, Until Fri05/05/24 at 1345 Given 05/05/2024 1:18 PM CDT 15 mg lactated ringers infusion 10-50 mL/hr, Intravenous, CONTINUOUS, Starting on Fri05/05/24 at 0930, Until Oralia 05/06/24 at 1557 New Bag 05/05/2024 1:30 PM CDT Restarted 05/05/2024 11:01 AM CDT Continued From PreOp-(Anes) 05/05/2024 10:56 AM CDT 15 mL/hr New Bag 05/05/2024 9:45 AM CDT 15 mL/hr 15 mL/hr lidocaine 2% PF (Xylocaine) injection IV Push, NEEDED, Starting on Fri05/05/24 at 1101, Until Fri05/05/24 at 1345 Given 05/05/2024 11:01 AM CDT 100 mg ondansetron (Zofran) injection IV Push, NEEDED, Starting on Fri05/05/24 at 1107, Until Fri05/05/24 at 1345 Given 05/05/2024 11:07 AM CDT 4 mg phenylephrine (Vazculep) 100 mcg/mL in sodium chloride 0.9% (NS) infusion Intravenous, CONTINUOUS INTRA-OP, Starting on Fri05/05/24 at 1107, Until Fri05/05/24 at 1345 Rate/Dose Change 05/05/2024 1:12 PM CDT 10 mcg/min 6 mL/hr Rate/Dose Change 05/05/2024 12:55 PM CDT 20 mcg/min 12 mL/ hr Rate/Dose Change 05/05/2024 12:37 PM CDT 10 mcg/min 6 mL/h r Restarted 05/05/2024 12:15 PM CDT 20 mcg/min 12 mL/hr New Bag 05/05/2024 11:07 AM CDT 20 mcg/min 12 mL/hr propofol (Diprivan) 200 MG/20ML injection Intravenous, NEEDED, Starting on Fri05/05/24 at 1101, Until Fri05/05/24 at 1345 Given 05/05/2024 11:01 AM C DT 150 mg rocuronium (Zemuron) injection IV Push, NEEDED, Starting on Fri05/05/24 at 1101, Until Fri05/05/24 at 1345 Given 05/05/2024 12:43 PM CDT 10 mg Given 05/05/2024 12:24 PM CDT 10 mg Given 05/05/2024 12:07 PM CDT 10 mg Given 05/05/2024 11:48 AM CDT 10 mg Given 05/05/2024 11:30 AM CDT 10 mg Given 05/05/2024 11:01 AM CDT 50 mg sugammadex sodium (Bridion) injection IV Push, NEEDED, Starting on Fri05/05/24 at 1329, Until Fri05/05/24 at 1345 Given 05/05/2024 1:29 PM CDT 2 00 mg tranexamic acid (Cyklokapron) 1000 mg in sodium chloride 0.7% 100 mL (premix) 1,000 mg, Intravenous, at 200 mL/hr, ONCE, 1 dose, On Fri05/05/24 at 0930 Given 05/05/2024 11:08 AM CDT 1,000 mg tranexamic acid (Cyklokapron) 1000 mg in sodium chloride 0.7% 100 mL (premix) 1,000 mg, Intravenous, at 200 mL/hr, ONCE, 1 dose, On Fri05/05/24 at 0930 Given 05/05/2024 1:06 PM CDT 1,000 mg documented in this encounter Care Teams Postal Sorting Officer Relationship Specialty Start Date End Date Elsewhere, Pcp PCP - General 04/19/24 documented as of this encounter
--- OUTSIDE RECORDS SUMMARY | 2024-07-14 12:43 | XMS_ITS ---
Author Organization [facility] Address [address] [place] [address] [address] [address] Care Team Providers Care Back End Developer Name Role Phone NIKKI MINOR Unavailable [phone] REASON FOR VISIT Upper back, neck and shoulder pain, Pain and headaches at the back of the head, Facial pain, Limited opening, Day and night clenching Medications Medication SIG (Take, Route, Fr equency, Duration) Notes Start Date End Date Status valACYclovir HCl 1 GM Take by mouth estiven y DAILY. Do not substitute. 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 improving Plan Of Treatment Next Appt Details Follow Up: 6 Weeks, Reason: recheck Provider Name:NIKKI Roque, 09/14/2024 01:00:00 PM, [address] [facility], [address], [place], [address], Procedure Notes * Category Sub-Category Detail Notes Appliance Adjustments Appliance adjustments Adde d 1mm height to the pads Appliance Recommendations Recommended ap pliance wear as follows during sleep Straps Gave straps to patie nt (# pairs) 12 pair 19mm clear Exercises Exercise Recommendations increas e frequency of , finger-snap range of motion stretches, TMJ decompression Providers Seen By Nikki Minor D.D.S., M.S. Dental Cigarette Examiner Verna Vides, LDA, CTA Progress Notes * Neema HURTADOOB:[birth year] (68 yo F)Acc No.[id number]:07/12/2024 Patient:?Ninoska HURTADO Provider:?Nikki Minor D.D.S., M.S. :1955???Age:68 Y???Sex:Female D ate:07/12/2024 Address:[address] [place], [place] [id number] Subjective: * Chief Complaints: * ???Upper back, neck and shou lder painPain and headaches at the back of the headFacial painLimited openingDay and night clenching * HPI: ???Subjective:?Subjective?Patient presents for SINA recheck. She had her left hip replaced in May, she had been doing really well but things are seeming a little more aggrivated. She is going to try to PT. ?Upperback/neck/shoulder pain- terrible today, maybe a little worse in the morning ?Headaches- none ?Facail pain- none ?Clicking- a little more?Limited open- feels a liitle ?Clenching- maybe nore with stress.?TMD Condition?flaring up since last office visit.?Sleep Quality?has been worse since their last appointment.?Changes in medical history?yes: left hip replacement?.?Changes in medication?yes, see medications.?Appliance Status:?Patient wears?YUE, during sleep.?Straps?16-mm, clear.?Changes straps every?every 2-3 weeks maybe.?Current Exercises:?Patient exercises?..?Cumberland And STOP BANG Scores:?Cumberland Questionnaire Score?7.? * Medical History:? * Surgical History:? * Hospitalization/Major Diagno stic Procedure:? * Medications:?TakingvalACYclo vir HCl 1 GM Tablet Take by mouth daily DAILY. Do not substitute. Oral 0 Taking valACYclovir HCl 1 GM Tablet Take by mouth daily DAILY. Do not substitute. Oral 0 Objective: * Vitals:? * Examination: ???Mandibular Range of Motion: ?Opening (mm)?32.?Opening: Noise?left.?Right (mm)?7.?Right: Noise?right.?Left (mm)?6.?Left: Noise?right.?Protrusion (mm)?7.?Measurement of tongue tip to incisive papilla (mm)?20.?Palpations at Recheck: ?Masseter--origin?Right: 0, Left: 0.?Masseter--body?Right: 0, Left: 1.?Masseter--insertion?Right: 0, Left: 0.?Retromandibular?Right: 0, Left: 0.?Anterior Temporalis?Right: 0, Left: 1.?Middle Temporalis?Right: 1, Left: 1.?Posterior Temporalis?Right: 0, Left: 0.?Occipital Area?Right: 0, Left: 0.?Posterior Digastric?Right: 0, Left: 0.?SCM?Right: 1, Left: 0.?TMJ Pain?Right: 0, Left: 0.?TMJ Clicking?Right: 0, Left: 0.?TMJ Crepitus?Right: 0, Left: 0.? 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 Guerrero benefit from more vert ical dimension on her SINA Plan: * Treatment: * Procedures:?Appliance Adjustments:?Appliance adjustments?Added 1mm height to the pads.?Appliance Recommendations:?Recommended appliance wear as follows?during sleep.?Straps:?Gave straps to patient (# pairs)?12 pair 19mm clear.?Exercises:?Exercise Recommendations?increase frequency of , finger-snap range of motion stretches, TMJ decompression.?Providers:?Seen By?Nikki Minor D.D.S., M.S..?Dental Cigarette Examiner?VÍCTOR Garcia, CTA.? * Procedure Codes:? * Follow Up:?6 Weeks (Reason: recheck) * Billing Information: * Visit Code:? 57458 Office Visit. * Procedure Codes:? * Sign off status: Completed true * Provider:?Nikki Minor D.D.S., M.S. Da te:?07/12/2024 Generated for Cem rodriguez/Lizbeth/eTransmitting on:?07/14/2024 12:42 PM CDT History and Physical Notes * HPI (History of Present Illness) Category Sub-Category Detail Notes Cumberland And STOP BANG Scores Cumberland Questionnai re Score 7 Appliance Status Patient wears YUE, during sle ep Eats Straps 16-mm, clear Changes straps every every 2-3 weeks may be Current Exercises Patient exercises . Subjective Subjective Patient presents for SINA recheck. She had her left hip replaced in May, she had been doing really well but things are seeming a little more aggrivated. She is going to try to PT. Upperback/neck/shoulder pain- terrible today, maybe a little worse in the morning Headaches- none Facail pain- none Clicking- a little more Limited open- feels a liitle Clenching- maybe nore with stress TMD Condition flaring up since las t office visit Sleep Quality has been worse since their last appointment Patient Comments Referred by Goals with orthodontic intervention incl ude Changes in medical history yes: left hip replacement Changes in medication yes, see medicatio ns Examination Category Sub-Category Detail Notes Palpations at Recheck Masseter--origin Right: 0, Left: 0 Masseter--body Right: 0, Left: 1 Masseter--insertion Right: 0, Left: 0 Retromandibular Right: 0, Left: 0 Anterior Temporalis Right: 0, Left: 1 Middle Temporalis Right: 1, Left: 1 Posterior Temporalis Right: 0, Left: 0 Occipital Area Right: 0, Left: 0 Posterior Digastric Right: 0, Left: 0 SCM Right: 1, Left: 0 TMJ Pain Right: 0, Left: 0 TMJ Clicking Right: 0, Left: 0 TMJ Crepitus Right: 0, Left: 0 Mandibular Range of Motion Opening (mm) 32 Right (mm) 7 Opening: Noise left Right: Noise right Left (mm) 6 Left: Noise right Protrusion (mm) 7 Measurement of tongue tip to incisive pa james (mm) 20
--- OUTSIDE RECORDS SUMMARY | 2024-07-14 12:43 | XMS_ITS | Encounter Summary ---
Author Organization [facility] Address [address] [place] [address] Care Team Providers Care Php Engineer Name Role Phone Reina Trammell MD Primary Care Provider Encounter Details Date Type Department Care Team (Latest Contact Info) Description 07/13/2024 Orders Only [facility] ProviderHolland [place] [address] Social History Tobacco Use Types Packs/Day Years [...] 11:00 AM CDT Appointment PULMONARY LAB AT [address] [address] 07/15/2024 1:00 PM CDT Office Visit [facility] [address] [place] [address] [phone] Shobha Mcarthur MD [address] [place] [address] [place] [address] [phone] documented as of this encounter Procedures Procedure Name Priority Date/Time Associated Diagnosis Comments CT 07/13/2024 documented in this encounter Results * CT (07/13/2024) Anatomical Region Laterality Modality Other Interface Provider MD DUMMY/OTHER/AR documented in this encounter Visit Diagnoses Not on filedocumented in this encounter Care Teams Php Engineer Relationship Specialty Start [place] [address] [place] [id number] PCP - General 03/05/16 documented as of this encounter
--- OUTSIDE RECORDS SUMMARY | 2024-07-14 12:43 | XMS_ITS | Patient Health Record ---
Author Organization [facility] Address [address] [place] [address] [address] [address] Care Team Providers Care Route Cdl Driver Name Role Phone JANET SONG Unavailable [phone] Reason For Referral No Information Medications Medication SIG (Take, Route, Fr equency, Duration) Notes Start Date End Date Status valACYclovir HCl 1 GM Take by mouth estiven y DAILY. Do not substitute. Oral 0 Active Problems Problem Type SNOMED Code ICD Code Onset Dates Problem Status W/U Status Risk Notes Problem Cervicalgia (76467104) Cervicalgia (M54.2) 2019 Active confirmed Cervicalgia flares up on occasion depending on activity Problem Abnormal findings on diagnostic imaging of skull and head (574429797) Abnormal findings on diagnostic imaging of skull and head, not elsewhere classified (R93.0) 2019 Active confirmed Abnormal findings on diagnostic imaging of skull and head, not elsewhere classified Problem Screening for cancer (58213261) Encounter for screening for malignant neoplasm of oral cavity (Z12.81) 2019 Active confirmed Encounter for screening for malignant neoplasm of oral cavity Problem Screening for cancer (71207136) Encounter for screening for malignant neoplasm of other sites (Z12.89) 2019 Active confirmed Encounter for screening for malignant neoplasm of other sites Problem Arthralgia of temporomandibular joint (52830231) Arthralgia of bilateral temporomandibul ar joint (M26.623) 2019 Active confirmed Arthralgia of bilateral temporomandibula r joint Problem Articular disc disorder of temporomandibular joint (35058886) Articular disc disorder of bilateral temporomandibul ar joint (M26.633) 2019 Active confirmed Articular disc disorder of bilateral temporomandibula r joint improving Problem Muscle pain (27002348) Myalgia, unspecified site (M79.10) 2019 Active confirmed Encounters Encounter Location Date Provider Diagnosis [address] [place] [address] 12/08/2023 JANET SONG Cervicalgia M54.2 an d 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 M26.[address] [place] [address] 12/25/2023 JANET SONG Cervicalgia M54.2 an d 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 M26.[address] [place] [address] 05/03/2024 JANET SONG Cervicalgia M54.2 an d 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 M26.[address] [place] [address] 07/12/2024 JANET SONG Cervicalgia M54.2 an d Articular [...] disc disorder of bilateral temporomandibular joint improving 05/03/2024 Cervicalgia (ICD-10 - M54.2) Cervicalgia flares up on occasion depending on activity 05/03/2024 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
--- OUTSIDE RECORDS SUMMARY | 2024-07-14 12:43 | XMS_ITS | Encounter Summary ---
Author Organization [facility] Address [address] [place] [address] Care Team Providers Care Leader Assembler Name Role Phone Reina Trammell MD Primary Care Provider Encounter Details Date Type Department Care Team (Latest Contact Info) Description 07/13/2024 Orders Only [facility] ProviderHolland MD [place] [address] Social History Tobacco Use Types Packs/Day Years [...] 11:00 AM CDT Appointment PULMONARY LAB AT [address] [address] 07/15/2024 1:00 PM CDT Office Visit Specialty Center [facility] Pulmonary Medicine [address] [place] [address] [phone] Shobha Mcarthur MD [facility] [address] [place] [phone] documented as of this encounter Procedures Procedure Name Priority Date/Time Associated Diagnosis Comments IMAGING 07/13/2024 documented in this encounter Results * IMAGING (07/13/2024) Anatomical Region Laterality Modality Other Interface Provider MD DUMMY/OTHER/AR documented in this encounter Visit Diagnoses Not on filedocumented in this encounter Care Teams Leader Assembler Relationship Specialty [place] [address] [place] [address] PCP - General 03/05/16 documented as of this encounter
--- OUTSIDE RECORDS SUMMARY | 2024-07-14 12:43 | XMS_ITS | Encounter Summary ---
Author Organization [facility] Address [address] [address] Phone Care Team Providers Care Mortgage Loan Reviewer Name Role Phone Elsewhere, Pcp Primary Care Provider Unavailabl e Reason for Visit * Reason Onset Date Comments Pre-Procedure Call 04/15/2024 * Auth/Cert (Routine) Specialty Diagnoses / Procedures Referred By Catia espinoza Referred To Contact Diagnoses Left hip degenerative joint disease M16.11 Procedures TOTAL HIP REPLACEMENT Left total hip arthroplsty direct anterior approach Hilda Gordon MD [facility] [address] [address] Phone: tel: fax: Referral ID Status Reason Start Date Expiration Date Visits Re quested Visits Authorized [id number] 1 1 Encounter Details Date Type Department Care Team (Late st Contact Info) Description 05/05/2024 11:00 AM CDT - 05/05/2024 2:[address] [facility] OR [address] [place] [phone] Hilda Gordon MD [facility] [address] [id number] Left total hip arthroplasty direct anterior approach Surgery Details Date/Time Status Location OR Service Patient Class Case Class Case Type Trauma Case? 05/05/2024 11:00 AM Posted [facility] OR OR 05 Orthopedic AM Admit - Outpatient Panel 1 Procedure LRB Anes Op Region Wound Class Comments Left total hip arthroplasty direct anterior approach Left General Hip Surgeon Surgeon Role Service Panel Juancho-Rhianna Longoria PA-C Assisting Orthopedic 1 Hilda Gordon MD Primary Orthopedic 1 Mary Kent PA-C Assisting Orthopedic 1 Case Notes Depuy actis Orthogrid Special Needs no known drug allergies documented in this encounter Social History Tobacco Use Types Packs/Day Years Used Date Smoking Tobacco: Never Passive Smoke Exposure: Never Smokeless Tobacco: Never Tobacco Cessation:Counseling Given: Not Answered [facility] Utilities Answer Date Recorded In the [...] any time in the past 12 m [facility], were you homeless or living in a [...] Sign Reading Time Taken Comments Blood Pressure 113/70 05/05/2024 2:30 PM CDT Pulse 98 05/05/2024 2:30 PM CDT Temperature 37.1 ??C (98.8 ??F) 05/05/2024 1:45 PM CD T Respiratory Rate 12 05/05/2024 2:30 PM CDT Oxygen Saturation 97% 05/05/2024 2:30 PM CDT Inhaled Oxygen Concentration - - [...] BEDTIME Follow Up Instructions: Hilda Gordon MD [facility] [place] [address] [address] Go on 05/26/2024 POST-OP APPOINTMENT SCHEDULED WITH HILDA GORDON MD AT [facility] [place] [facility] AT 2:10 PM. Marie Ross PA-C [facility] Rounder documented in this encounter Discharge Instructions * Appointments* Luz Lin RN - 05/06/2024 9:44 AM CDT POST-OP APPOINTMENT SCHEDULED WITH HILDA GORDON MD AT THE [place] [facility] AT 2:10 PM. documented in this [...] Do not crush. 42 Capsule 05/05/2024 06/16/20 meloxicam (Mobic) 15 MG tablet Take 1 Tablet by mouth one time a day for 42 days. Take with food. 42 Tablet 05/05/2024 06/16/20 aspirin EC 325 MG tablet Take 1 Tablet by mouth one time a day for 42 days. For DVT prevention. Do not split or crush. 42 Tablet 05/05/2024 06/16/20 24 documented in this encounter Discharge Disposition Disposition Code Departure Means Destination Comment s Home and/or Self Penitentiary documented in this encounter Progress Notes * Marina Ro, YUE - 05/06/2024 11:16 AM CDT PHYSICAL THERAPY [...] single end cane. The patient and their motor coach driver was provided education and counselor nurses' association on safe body mechanics and transfer assistance [...] 61-90 Moderate Dependence 91-99 Slight Dependence 100 [place] Score Prediction Less than 40 Unlikely to [...] and satisfied. Therapeutic Activity: Skilled therapeutic education, counselor nurses' association and activity modification was providedto patient for [...] concerns to note. The patient and their motor coach driver have been instructed on safe patient handling [...] Total Treatment Time: 25 minutes Therapeutic Activities (44664) = 10 minutes Gait Training (85137) = 15 minutes Cosigned by Nicki Case [...] No Length of Stay Plan reviewed;Overnight stay [place] name & phone number Eric [phone] Will your motor coach driver be the one picking you up from [...] Oxycodone at home Goal after surgery swimming, twins game 6 days after surgery Concerns about surgery no Past post-op complications? Not applicable Are you diabetic? No Do you have a metal allergy? No Pre-op H&P date 04/12/24 Pre-op H&P location [facility] in [place] How many stairs to enter your home? [...] of Procedure: 05/05/2024 SURGEON HILDA GORDON M.D. TOOL GRINDER OPERATOR Radha Louis, ILIR - Assisting Rhianna Hensley PA-C - Assisting [...] Implant Name Type Inv. Item Serial No. Spring Layer Lot No. LRB No. Used Action CUP ACET 52MM PINNACLE SECTOR II - [id number] CUP ACET 52MM PINNACLE SECTOR II NA DEPUY [id number] Implanted APEX HOLE ELIMINATOR PS - [id number] APEX HOLE ELIMINATOR PS NA DEPUY [id number] Left 1 Implanted LINER ACET ALTRX 36MM X 52MM NEUTRAL - [id number] LINER ACET ALTRX 36MM X 52MM NEUTRAL NA DEPUY [id number] Left 1 Implanted SCREW BONE CANCELLOUS 6.5MM X 35MM - [id number] SCREW BONE CANCELLOUS 6.5MM X 35MM NA DEPUY [id number] Left 1 Implanted SCREW BONE CANCELLOUS 6.5MM X 20MM - [id number] SCREW BONE CANCELLOUS 6.5MM X 20MM NA DEPUY [id number] Left 1 Implanted SCREW BONE CANCELLOUS 6.5MM X 15MM - [id number] SCREW BONE CANCELLOUS 6.5MM X 15MM NA DEPUY [id number] Left 1 Implanted STEM FEMORAL ACTIS DUOFIX SZ 4 HIGH - [id number] STEM FEMORAL ACTIS DUOFIX SZ 4 HIGH NA DEPUY [id number] Left 1 Implanted HEAD FEMORAL BIOLOX DELTA SZ 36 +1.5MM - [id number] HEAD FEMORAL BIOLOX DELTA SZ 36 +1.5MM NA [id number] Left 1 Implanted PROCEDURE The patient was brought to the operating room and after satisfactory anesthesia was placed on the [place] table. The left lower extremity was then [...] aid of image intensification. A 52 mm [place] cup was impacted into place in approximately [...] of tranexamic acid pre-op. A skilled first dyer was necessary for this procedure for assistance with patient positioning,prepping, draping, surgical visualization, performance of the repair, wound closure, and application of the dressing. * Rehab Evaluation - Iliana Gonzalez, PT - 05/05/2024 6:22 PM CDT PHYSICAL [...] wheeled walker Patient's Goal(s): swim, attend a [employer] game Objective Cognition: Alert and Cooperative Functional [...] WNL Intervention: Therapeutic Activity: Skilled therapeutic education, counselor nurses' association and activity modification was providedto patient for [...] Time: 40 minutes Evaluation Low - Complexity (55802) Therapeutic Activities (82053) = 20 minutes Gait Training (19797) = 5 minutes * Care Plan - [...] family. * Brief Op Note - Hilda Gordon MD - 05/05/2024 2:17 PM CDT [facility] BRIEF OPERATIVE [facility] Pre-Op Diagnosis: Left hip degenerative joint disease M16.12, CPT: 48458 Post-Op Diagnosis: Same Procedure(s): Left direct anterior total hip arthroplasty Anesthesia Type: General Surgeons and Role: * Hilda Gordon MD - Primary * Mary Kent PA-C - Assisting * Rhianna Hensley PA-C - Assisting * Radha Louis PA-C - Assisting Estimated Blood Loss: 400 mL Specimen(s): No Specimens Collected Complications: None Implant(s): Implant Name Type Inv. Item Serial No. Spring Layer Lot No. LRB No. Used Action CUP ACET 52MM PINNACLE SECTOR II - [id number] CUP ACET 52MM PINNACLE SECTOR II NA DEPUY [id number] Implanted APEX HOLE ELIMINATOR PS - [id number] APEX HOLE ELIMINATOR PS NA DEPUY [id number] Left 1 Implanted LINER ACET ALTRX 36MM X 52MM NEUTRAL - [id number] LINER ACET ALTRX 36MM X 52MM NEUTRAL NA DEPUY [id number] Left 1 Implanted SCREW BONE CANCELLOUS 6.5MM X 35MM - [id number] SCREW BONE CANCELLOUS 6.5MM X 35MM NA DEPUY [id number] Left 1 Implanted SCREW BONE CANCELLOUS 6.5MM X 20MM - [id number] SCREW BONE CANCELLOUS 6.5MM X 20MM NA DEPUY [id number] Left 1 Implanted SCREW BONE CANCELLOUS 6.5MM X 15MM - [id number] SCREW BONE CANCELLOUS 6.5MM X 15MM NA DEPUY [id number] Left 1 Implanted STEM FEMORAL ACTIS DUOFIX SZ 4 HIGH - [id number] STEM FEMORAL ACTIS DUOFIX SZ 4 HIGH NA DEPUY [id number] Left 1 Implanted HEAD FEMORAL BIOLOX DELTA SZ 36 +1.5MM - [id number] HEAD FEMORAL BIOLOX DELTA SZ 36 +1.5MM NA [id number] Left 1 Implanted Plan: DC home POD1 w/family assist. DVT prophylaxis w/ASA 325mg QD x6wks. Hilda Gordon MD All surgical medications, procedures, specimens, and imaging performed in the operating room are onthe order of the operating physician(s). See other operative note for full details * Plan of Care - Lexie Ritchie, SHELBI, MAT LINKER - 04/21/2024 9:25 AM CDT PREOPERATIVE ASSESSMENT NOTE Procedure(s): Left total hip arthroplsty direct anterior approach Date of Surgery: 05/05/24 Post-op appointment scheduled with Hilda Gordon MD at the [place] office on 05/26/24 at 2:10pm Patient's goals after surgery: Swimming, attending a [employer] Patient's concerns with upcoming surgery: None H&P [...] time of discharge between 9:00AM-12:00PM with their driver examiner arriving by 8:00AM Pharmacist Per Diem: , Eric Discharge location: Home Anticipated Home Health Services: None [place] [facility]/Family member available after discharge: Eric (was not present for this discussion) In the event of a concern arising after surgery, the patient was provided with the following information: During business hours, call surgeon's rn homecare, Anita Marin at [phone]. After business hours, call the on-call provider at [phone]. [facility] was discussed. They [...] Assistive Devices Page 17/51 They understand their motor coach driver should bring their assistive device to their [...] is not an outpatient pharmacy at the [facility] and they will need to brass pickler their post-operative medications at a pharmacy of [...] of surgery after arriving at the [facility]. Avoiding a Delayed Surgery Page 10 I gave them this reference to use between now and surgery to avoid their surgery being delayed or cancelled. Lexie Ritchie APRN, MAT LINKER DEANGELO Rounder for [facility] documented in this encounter Plan of [...] - 16.0 g/dl 05/06/2024 5:50 AM CDT [facility] Blood BLOOD SPECIMEN / Unknown Venipuncture / Unknown 05/06/2024 5:27 AM CDT 05/06/2024 5:43 AM CDT us Hilda Gordon MD EC HEMATOLOGY ORDERABLES Final Result [facility] [address] [place] [address] * XR HIP LEFT 2 OR 3 [...] ms RMCMUSE QTc 473 ms RMCMUSE P [place] 67 degrees RMCMUSE R [place] -26 degrees RMCMUSE T [place] 109 degrees RMCMUSE 05/05/2024 9:32 AM CDT 05/05/2024 2:43 PM CDT Narrative RMCMUSE - 05/05/2024 2:43 PM CDT Confirming Doc Marlon Angeles Sinus bradycardia Left bundle branch block Abnormal ECG No previous ECGs available Procedure Note Marlon Angeles MD - 05/05/2024 Confirming Doc Marlon Angeles Sinus bradycardia Left bundle branch block Abnormal ECG No previous ECGs available Hilda Gordon MD IP ECG ORDERABLES Final Result RMCMUSE documented in this encounter Visit Diagnoses Not [...] sodium chloride 0.9% (NS) 100 mL solution 100 mL, Infiltration, ONCE NEEDED, 1 dose, Starting on Fri05/05/24 at 1000, Until Fri05/05/24 at 1255, Other, field block Given 05/05/2024 12:55 PM CDT Left Hip Joint senna-docusate (Senokot-S) 8.6-50 MG per tablet 1 Tablet 1 Tablet, Oral, 2 TIMES DAILY, First dose on Fri05/05/24 at 2000, Until Discontinued Given 05/06/2024 8:59 AM CDT 1 Tablet Given 05/05/2024 8:24 PM CDT 1 Tablet sodium chloride 0.9% IV FLUSH (NS) SYRINGE 5 mL 5 mL, IV Flush, EVERY 8 HOURS, First dose on Fri05/05/24 at 1500, Until Discontinued Given 05/05/2024 9:22 PM CDT 5 mL vancomycin (Vancocin) injection NEEDED, Starting on Fri05/05/24 at 1255, Until Fri05/05/24 at 1344Indications:Infection Given 05/05/2024 12:55 PM CDT 1 g Left Hip Joint documented in this encounter Discontinued Medications Medication [...] 0947 (Given - Provider: Leidy Leonard RN) acetaminophen (Tylenol) tablet 1,000 mg 1,000 mg, Oral, 3 TIMES DAILY, First dose on Fri05/05/24 at 1800, Until Discontinued 1911 (Given - Provider: Luz Lin RN) 0858 (Given - Provider: Noni Kirkpatrick RN) aspirin tablet 325 mg 325 mg, Oral, ONCE DAILY, First dose on Fri05/06/24 at 0900, Until Discontinued 0859 (Given - Provid er: Noni Kirkpatrick RN) ceFAZolin (ANCEF) 2 g in dextrose 4% IVPB 100 mL (COMPLETED) 2,000 mg, Intravenous, at 200 mL/hr, ONCE, 1 dose, On Fri05/05/24 at 0930, Indication? surgical prophylaxis 1106 (Given - Provider: Darius Mendoza APRN, WIENER PACKER) ceFAZolin (ANCEF) 2 g in dextrose 4% IVPB 100 mL (COMPLETED) 2 g, Intravenous, at 200 mL/hr, *EVERY 8 HOURS, 2 doses, First dose on Fri05/05/24 at 1900, Last dose on Fri05/06/24 at 0300, Indication? surgical prophylaxis 1912 (New Bag - Provider: Luz Lin RN)1949 (Stopped - Provider: Teresa Royal RN) 251 (New Bag - Provider: Teresa Royal RN)033 (Stopped - Provider: Teresa Royal RN) ethyl alcohol nasal 62 % swab (COMPLETED) Nasal, ONCE, 1 dose, On Fri05/05/24 at 0930 0949 (Given - Provider: Leidy Leonard RN) ethyl alcohol nasal 62 % swab Nasal, 2 (two) times daily, First dose on Fri05/05/24 at 2100, Until Discontinued 2037 (Given - Provider: Teresa Royal RN) 0903 (Given - Provider: Noni Kirkpatrick RN) ketorolac (TORADOL) injection 15 mg 15 mg, IV Push, *EVERY 6 HOURS, 4 doses, First dose on Fri05/05/24 at 2000, Last dose on Fri05/06/24 at 1400 2023 (Given - Provider: Teresa Royal RN) 025 (Given - Provider: Teresa Royal RN)0858 (Given - Provider: Noni Kirkpatrick RN) latanoprost (Xalatan) 0.005 % ophthalmic solution 1 Drop 1 Drop, Both Eyes, AT BEDTIME, First dose (after last modification) on Fri05/05/24 at 2200, Until Discontinued 2023 (Given - Provider: Teresa Royal RN) pantoprazole (Protonix) tablet 20 mg 20 mg, Oral, ONCE DAILY, First dose on Fri05/05/24 at 1600, Until Discontinued 1524 (Given - Provider: Luz Lin, NUBIA) 0858 (Given - Provider: Noni Kirkpatrick RN) polyethylene glycol 3350 (Glycolax, Miralax) packet 17 g 17 g, Oral, ONCE DAILY, First dose on Fri05/06/24 at 0900, Until Discontinued 0903 (Not Given - Provider: Noni Kirkpatrick, NUBIA - Reason: Patient/Family refused) pregabalin (Lyrica) capsule [...] Provider: Luz Lin RN - Reason: IV Infusing)2122 (Given - Provider: Perla Robb RN) 0530 (Not Given - Provider: Teresa Royal RN - Reason: IV Infusing) tranexamic acid (Cyklokapron) 1000 mg in sodium chloride 0.7% 100 mL (premix) (COMPLETED) 1,000 mg, Intravenous, at 200 mL/hr, ONCE, 1 dose, On Fri05/05/24 at 0930 1108 (Given - Provider: Darius Mendoza APRN, DIXIE) tranexamic acid (Cyklokapron) 1000 mg in sodium [...] DIXIE)1100 (Paused - Provider: Darius Mendoza APRN, CRNA - Comment: Switch to gravity)1101 (Restarted - Provider: Darius Mendoza APRN, DIXIE)1330 (New Bag - Provider: Darius Mendoza APRN, DIXIE)1339 (Anesthesia Volume Adjusted - Provider: Darius Mendoza APRN, DIXIE) 1557 (Due: Stopped - Provider: Damionuser Chiara) lactated ringers infusion Intravenous, at 75 mL/hr, CONTINUOUS, Starting on Fri05/05/24 at 1500, Until Fri05/06/24 at 1557 1500 (Restarted - Provider: Luz Lin RN)2122 (New Bag - Provider: Perla Robb RN) 1557 (Due: Stopped - Provider: Isma Guadarrama) PRN Medication Order 05/04/2024 05/05/2024 05/06/2024 bisacodyl [...] Until Fri05/06/24 at 1557, Respiratory Depression, Other, ELECTRONICS ENGINEER depression ondansetron (Zofran ODT) disintegrating tablet [...] (7-10) 1525 (Given - Provider: Luz Lin RN)8217 (Given - Provider: Teresa Royal RN) 0621 (Given - Provider: Brittany Oh, RN)1135 (Given - Provider: Luz Lin, NUBIA) prochlorperazine (COMPAZINE) injection 5 mg(Linked Group 3) 5 mg, IV Push, EVERY 6 HOURS NEEDED, Starting on Fri05/05/24 at 1457, Until Oralia 05/06/24 at 1557, Nausea, Vomiting prochlorperazine (Compazine) tablet 5 mg(Linked Group 3) 5 mg, Oral, EVERY 6 HOURS NEEDED, Starting on Fri05/05/24 at 1457, Until Oralia 05/06/24 at 1557, Nausea, Vomiting ROPivacaine (Naropin) 300 [...] at 1457, Until Oralia 05/06/24 at 1557, Other, IV Line Flushing sodium [...] at 1457, Until Oralia 05/06/24 at 1557, Itching Or diphenhydrAMINE (Benadryl) injection [...] Until Oralia 05/06/24 at 1557, Nausea, Vomiting Or prochlorperazine (COMPAZINE) injection 5 mgJump to med 5 mg, IV Push, EVERY 6 HOURS NEEDED, Starting on Fri05/05/24 at 1457, Until Fri05/06/24 at 1557, Nausea, Vomiting documented in this encounter Orders Medications Ordered That Yaakov ht Not Have Been Administered Count Last Ordered Date First Ordered Date bisacodyl (Dulcolax) suppository 10 mg 1 ceFAZolin (ANCEF) 2 g in dex trose 4% IVPB 100 mL 05/05/2024 diphenhydrAMINE (Benadryl) capsule 25 mg 05/05/2024 diphenhydrAMINE (Benadryl) i njection 12.5-25 mg 1 05/05/2024 diphenhydrAMINE (Benadryl) injection 25 mg 05/05/2024 ePHEDrine sulfate (Emerphed) injection 5-20 mg 05/05/2024 HYDROmorphone (Dilaudid) inj ection 0.25-0.5 mg 1 05/05/2024 HYDROmorphone (Dilaudid) injection 1 mg 1 0 05/05/2024 hydrOXYzine HCl (Atarax) tablet 10 mg 1 labetalol (Trandate) injection 5-25 mg 1 latanoprost (Xalatan) 0.005 % ophthalmic solution 1 Drop 1 05/05/2024 magnesium hydroxide (Milk of Magnesia) 400 MG/5ML suspension 30 mL 1 05/05/2024 meperidine (Demerol) injection 12.5 mg 1 naloxone (Narcan) injection 0.1 mg 1 2023 naloxone (Narcan) injection 0.2 mg 1 2023 ondansetron (Zofran ODT) dis integrating tablet 4 mg 1 05/05/2024 ondansetron (Zofran) injection 4 mg 1 05/05 phenylephrine (Biorphen) 0.5 MG/5ML injection 0.05 mg 1 05/05/2024 polyethylene glycol 3350 (Gl ycolax, Miralax) packet 17 g 1 05/05/2024 prochlorperazine (COMPAZINE) injection 10 mg 1 05/05/2024 prochlorperazine (COMPAZINE) injection 5 mg 1 05/05/2024 prochlorperazine (Compazine) tablet 5 mg 1 05/05/2024 sodium chloride 0.9% IV FLUS H (NS) SYRINGE 5 mL 1 05/05/2024 sodium phophate (Fleet) 7-19 GM/118ML enema 1 Enema 1 05/05/2024 tranexamic acid (Cyklokapron ) 1000 mg in sodium chloride 0.7% 100 mL (premix) 2 05/05/2024 Admission Count Last Ordered Date First Orde [...] 05/05/2024 documented in this encounter Care Teams Mortgage Loan Reviewer Relationship Specialty Start Date End Date Elsewhere, Pcp PCP - General 04/19/24 documented as of this encounter
--- OUTSIDE RECORDS SUMMARY | 2024-07-14 12:43 | XMS_ITS | Clinical Summary ---
Author Organization [facility] Address [address] [place] [address] Care Team Providers Care Chief Underwriter Name Role Phone Reina Trammell MD Primary Care Provider + [phone] Source Comments You are receiving this document as you are listed as the primary care provider,follow-up provider, or the patient has been referred to you for consultation.This is in compliance with the Medicare andSelect [facility] EHR Incentive Program,which states Providers who transition their patient to another setting of careor provider of care or refers their patient to another provider of care shouldprovide summary care record for each transition of care or referral. [employer] Allergies Active Allergy Reactions Criticality Noted Date Comments Sulfamethoxazole-Trimethoprim Rash 2016 Sulfa Antibiotics Rash 02/19/2016 Medications Medication Sig Dispensed Refills Start Date End Date Status Zinc Acetate 50 MG Take 50 mg by mouth as needed. 03/05/2016 Active Active Problems Problem Noted Date Diagnosed Date Apnea, sleep 02/19/2016 Encounters Date Type Department Care Team Description 07/13/2024 Orders Only [facility] DEPARTMENT Holland Emmanuel MD 07/13/2024 Orders Only HIM DEPARTMENT Holland Emmanuel MD 07/13/2024 Orders Only HIM DEPARTMENT Holland Emmanuel MD 07/13/2024 Orders Only HIM DEPARTMENT ProviderHolland MD from [...] AM CDT Appointment PULMONARY LAB AT [address] [id number] 07/15/2024 1:00 PM CDT Office Visit Specialty Center [address] Pulmonary Medicine [address] [place] [address] [phone] Shobha Mcarthur MD [address] [facility] [address] [place] [address] [phone] Health Maintenance Due Date Last Done Comments Colon Cancer Screening Plan Due 1955 Hep C Screening (Preventive Services) 1955 Mammogram 1955 Adult Preventive Visit 11/27/1971 DTaP/Tdap/Td (1 - Tdap) 1972 Cholesterol 1998 Zoster/Shingles (2 of 3) 01/23/2016 11/28/2015 Dexa 2018 Pneumococcal 65+ Yrs (1 - PCV) 2018 COVID-19 Vaccine ( - 2023-2 5 season) 2024 Influenza (#1) 2024 RSV (1 - 1-dose 75+ series) 2028 HepA Aged Out No longer eligi ble based on patient's age to complete this topic HepB Aged Out No longer eligi ble based on patient's age to complete this topic Hib Aged Out No longer eligi ble based on patient's age to complete this topic IPV (Polio) Aged Out No longer eligi ble based on patient's age to complete this topic RSV Aged Out No longer eligi ble based on patient's age to complete this topic MCV4 Aged Out No longer eligi ble based on patient's age to complete this topic Procedures Procedure Name Priority Date/Time Associated Diagnosis Comments CT 07/13/2024 CT 07/13/2024 IMAGING 07/13/2024 IMAGING 07/13/2024 from Last 3 Months Results * IMAGING (07/13/2024) Only the most recent of2 resultswithin the time period is included. Anatomical Region Laterality Modality Other Interface Provider DUMMY/OTHER/AR * CT (07/13/2024) Only the most recent of2 resultswithin the time period is included. Anatomical Region Laterality Modality Other Interface Provider DUMMY/OTHER/AR from Last 3 Months Care Teams Chief Underwriter Relationship Specialty [place] [id number] [address] [place] [id number] [facility] - General 03/05/16
--- OUTSIDE RECORDS SUMMARY | 2024-07-14 12:43 | XMS_ITS | Encounter Summary ---
Author Organization [facility] Address [address] [place] [address] Care Team Providers Care Cut Plug Packer Name Role Phone Reina Trammell MD Primary Care Provider Encounter Details Date Type Department Care Team (Latest Contact Info) Description 07/13/2024 Orders Only [facility] ProviderHolland MD [place] [address] Social History Tobacco Use Types Packs/Day Years [...] 11:00 AM CDT Appointment PULMONARY LAB AT [address] [address] 07/15/2024 1:00 PM CDT Office Visit Specialty Center 39[address] Pulmonary Medicine [address] [place] [phone] Shobha Mcarthur MD [address] [place] [address] [place] [phone] documented as of this encounter Procedures Procedure Name Priority Date/Time Associated Diagnosis Comments CT 07/13/2024 documented in this encounter Results * CT (07/13/2024) Anatomical Region Laterality Modality Other Interface Provider MD DUMMY/OTHER/AR documented in this encounter Visit Diagnoses Not on filedocumented in this encounter Care Teams Cut Plug Packer Relationship Specialty Start [place] [address] [address] [place] [address] PCP - General 03/05/16 documented as of this encounter
--- OUTSIDE RECORDS SUMMARY | 2024-07-14 12:43 | XMS_ITS | Encounter Summary ---
Author Organization [facility] Address [address] [address] Phone Care Team Providers Care Leave Manager Name Role Phone Elsewhere, Pcp Primary Care Provider Unavailabl e Encounter Details Date Type Department Care Team (Latest Contact Info) Description 05/03/2024 Travel Social History Tobacco Use Types Packs/Day Years Used Date Smoking Tobacco: Never Assessed EH IP Custom IPV Answer Date Recorded [...] as of this encounter Plan of Treatment Not on file documented as of this encounter Visit Diagnoses Not on filedocumented in this encounter Care Teams Leave Manager Relationship Specialty Start Date End Date Elsewhere, Pcp PCP - General 04/19/24 documented as of this encounter
--- NOTE | 2024-07-14 13:00 | CRLHL7_ITS ---
For Patients: As a result of the Century Cures Act, medical imaging exams and procedure reports are released immediately into your electronic medical record. You may view this report before your referring provider. If you have questions, please contact your health care provider. DEXA BONE MINERAL DENSITY STUDY Reason for exam: Osteopenia. Current height (inches): 62 Weight (lbs.): 140 Menopause age: 39 Ethnicity: White 1. Have you had a previous hip or vertebral fracture? No. 2. Have you had any fractures during your adult life which did not result from significant trauma (e.g., auto accident)? No. 3. Did either of your parents have a hip fracture? Yes. 4. Do you smoke? No. 5. Have you ever taken Glucocorticoids? No. 6. Do you have rheumatoid arthritis? No. 7. Do you have secondary osteoporosis? No. 8. Do you drink 3 or more alcoholic drinks per day? No. 9. Are you being treated for osteoporosis? No. 10. Have you ever taken any of the following medications: Actonel, Evista, Fosamax, Miacalcin, Reclast, Boniva, Forteo, HRT (i.e., estrogen/hormone therapy), Protelos, Prolia, Vitamin D, Calcium, other ??? please specify. ANSWER: Yes; Fosamax, vitamin D, calcium. 11. Do you have any of the following medical conditions: Anorexia or bulimia, asthma or emphysema, end stage renal disease, hyperparathyroidism, any seizure disorders, cancer, inflammatory bowel diseases, hysterectomy, other ??? please specify. ANSWER: Yes; hysterectomy. 12. What was your maximum height (inches)? 63. 13. Do you perform weightbearing exercise regularly? No. 14. Do you regularly consume dairy products? Yes. 15. Do you drink caffeinated beverages? Yes. 16. At what age did your period start? 10. 17. Are you premenopausal? No. 18. How many full-term pregnancies have you had? 4. 19. Have you ever missed your period for more than 6 months in a row (not including or menopause)? No. TECHNIQUE: Bone mineral density study was performed using the [employer]. FINDINGS: The results of the study expressed as bone mineral density (BMD) are as follows: Lumbar Spine L1 to L4: BMD: 0.881 g/cm2. T-score: -1.5. Z-score: 0.6. Neck Right: BMD: 0.561 g/cm2. T-score: -2.6. Z-score: -0.8. Total Right: BMD: 0.776 g/cm2. T-score: -1.4. Z-score: 0.2. IMPRESSION: Osteopenia. COMPARISON: Compared with scan of 03/01/2019, the bone mineral density has increased by 3.36% at the spine and decreased by 0.1% at the hip. *Comparison exams done prior to 02/2020 were performed on different unit, [employer]. DARIUS SYEKS M.D. Diagnostic Radiologist [email or web address] Transcribed: 10:[address]/Dictated by: Darius Sykes MD @ 07/15/2024 8:33:00 AM (Electronically Signed)
== END 2024-07-14 12:39 | disposition home or self-care (01) ==
LOC: RAD 12:40
PROVIDERS: PCP Family Medicine; Visit Provider Physician Assistant Medical
DX: M81.0 Age-related osteoporosis without current pathological fracture (principal); M85.89 Other specified disorders of bone density and structure, multiple sites
CPT/HCPCS: 77080

== ENCOUNTER 2024-08-19 10:30 | Outpatient (RCR) | payer MEDICARE, BC, SELFPAY | END 2024-08-19 11:27 | disposition home or self-care (01) | PROVIDERS: PCP Family Medicine; Visit Provider Physician Assistant | DX: Z96.642 Presence of left artificial hip joint (principal); M25.652 Stiffness of left hip, not elsewhere classified; M79.605 Pain in left leg; Z51.89 Encounter for other specified aftercare | CPT/HCPCS: 97110; 97161 ==

== ENCOUNTER 2025-01-04 11:45 | Outpatient (RCR) | payer MEDICARE, BC, SELFPAY ==
--- NOTE | 2024-11-29 12:32 | PT.OPE ---
PT [facility] Eval PT [facility] Out[facility] Eval Start: 11/29/24 12:12 Freq: Status: Active Protocol: Document 11/29/24 12:13 DIANN (Rec: 11/29/24 12:30 DIANN [id number]) E-signed By Raji Ro, PT, ATC Physical Therapy Outpatient Evaluation Insurance Information Insurance Name Medicare B,Blue [employer] Medical Diagnosis M25.511 pain in R shoulder M25.512 pain in L shoulder Treating Diagnosis L UE radicular symptoms L and R sided upper back, shoulder and neck pain. Referring MD Meagan Perez MD Subjective Preferred Name Ninoska Subjective Ninoska reports a long history of upper shoulder and neck symptoms stemming from an accident many years ago. Recently the symptom intensity was heightened to a level which was difficult for her to tolerate and it interrupted her sleep. Pain was as high as 9/10 and extended from the base of her neck through the entire L arm and into the thumb. Although the most severe symptoms occur at night , daily presence exists and effects ADL performance and social engagements. No loss of strength in the arm or hand observed. She is an active swimmer and symptoms also effect this performance. Pain Comments High 9/10 Average 5/10 Date of Last Physician Visit 11/25/24 Current Work Status Retired Precautions Weight Bearing Status Full Weight Bearing Objective Range of Motion Cervical L rotation -30%, R - 25%, Ext -50% Strength 5/5 all shoulder and UE bilaterally Palpation Increased muscle tone/spasm presence in L>R cervical middle scalene, upper trapezius, posterior shoulder and interscapular muscles. Mild to moderate vertebral mobilization glide hypomobility R and L in cervical spine. Posture Dowager's Hump at CT junction Head forward and rounded shoulder posture. Assessment Assessment/Impression Ninoska is a pleasant 69 year old female referred to PT because of cervical-shoulder pain, tightness and L UE radicular symptoms. Following the examination I feel her radicular symptoms are stemming from neural compression in the distal cervical foramen with associated muscle compression. Likely, degenerative changes are occurring and the body is responding accordingly with guarding. Skilled PT is currently recommended to address this vertebral or arthokinematic hypomobility and muscle guarding in the upper shoulder, back and neck. Primary Functional Limitations Turning head while driving or conversing sleeping Plan of Care Rehabilitation Potential Good Physical Therapy Goals 1.To reduce neck, shoulder and arm symptoms x 75% while permitting improved performance with ADL's and sleep. 2.Increase active cervical rotation by 5-10 degrees allowing improved ease driving , swimming and conversation. 3.Independent and correct performance with HEP and posture maintenance. Coordination/Communication With Referral Source Treatment Plan/Direct Interventions Joint Mobilization,Manual Therapy,Self-Care/Home Management,Therapeutic Activities,Therapeutic Exercises Frequency/Duration 6-12 visits Patient Will Be Discharged From Therapy Independent w/HEP, Independently Progressing Evaluation Billing Untimed Code Treatment Minutes 30 PT Eval No Charge No Complexity Low Certification Information Initial Certification Date 11/29/24 Ending Certification Date 03/01/25 Provider Signature Required Yes Provider Signature Shows Agreement With POC & Medical Necessity Physician NPI Number Write NPI# Here Physician Comment/Change : Physician Signature & Date Requested Please Sign/Date Here
== END 2025-01-04 13:04 | disposition home or self-care (01) ==
PROVIDERS: PCP Family Medicine; Visit Provider Family Medicine
DX: M25.511 Pain in right shoulder (principal); M25.512 Pain in left shoulder; R29.898 Other symptoms and signs involving the musculoskeletal system; Z51.89 Encounter for other specified aftercare
CPT/HCPCS: 97140; 97161

== ENCOUNTER 2025-07-12 10:39 | Outpatient (CLI) | payer MEDICARE, BC, SELFPAY | END 2025-07-12 10:40 | disposition home or self-care (01) | PROVIDERS: PCP Family Medicine; Visit Provider Family Medicine | DX: Z00.00 Encounter for general adult medical examination without abnormal findings (principal); E04.1 Nontoxic single thyroid nodule; Z11.59 Encounter for screening for other viral diseases | CPT/HCPCS: 80053; 80061; 84443; 86803 ==

== ENCOUNTER 2025-07-13 08:08 | Outpatient (CLI) | payer MEDICARE, BC, SELFPAY ==
--- NOTE | 2025-07-13 08:15 | CRLHL7_ITS ---
For Patients: As a result of the Century Cures Act, medical imaging exams and procedure reports are released immediately into your electronic medical record. You may view this report before your referring provider. If you have questions, please contact your health care provider. INDICATION: Chronic neck pain. COMPARISON: 04/22/2019. TECHNIQUE: Sagittal T1, T2, and STIR sequences. Axial T2/gradient sequences. FINDINGS: Normal vertebral body facet alignment. No fractures. No vertebral body loss of height. No spondylolisthesis. No ligamentous injury. No suspicious osseous lesions. Normal cord signal. No intradural mass or lesion. Marrow edema of the articular processes of the right C7-T1 facet joint which may be secondary to stress reaction or inflammation from facet arthritis. C1-2: No spinal canal narrowing. C2-3: No spinal canal or neural foraminal narrowing. C3-4: No narrowing of the spinal canal. Mild narrowing of left neural foramen. No narrowing of the right neural foramen. C4-5: Disc degeneration broad-based disc osteophyte complex. No narrowing of the spinal canal. Mild narrowing of the bilateral foramina. C5-6: No spinal canal neural foraminal narrowing. C6-7: Disc degeneration. Posted disc bulged disc osteophyte complex. No narrowing of the spinal canal. Mild narrowing of the left neural foramen. No narrowing of the right neural foramen. C7-T1: No spinal canal or neural foraminal narrowing. No spinal canal or neural foraminal narrowing in the visualized upper thoracic spine. IMPRESSION: 1. Normal alignment. No fractures 2. Normal cord signal 3. Marrow edema of the articular processes of the right C7-T1 facet joint which may be secondary to stress reaction or inflammation 4. At C4-5, mild narrowing of the bilateral neural foramina 5. At C6-7, mild narrowing of the left neural foramen Dictated by Emile Tapia MD @ 07/13/2025 11:11:50 AM (Electronically Signed)
--- NOTE | 2025-07-13 09:00 | CRLHL7_ITS ---
For Patients: As a result of the Century Cures Act, medical imaging exams and procedure reports are released immediately into your electronic medical record. You may view this report before your referring provider. If you have questions, please contact your health care provider. INDICATION: Thoracic spine pain. COMPARISON: 04/22/2019. TECHNIQUE: Sagittal T1, T2, and STIR sequences. Axial T2/gradient sequences. FINDINGS: Normal vertebral body and facet alignment. No fractures. No vertebral body loss of height. No spondylolisthesis. No ligamentous injury. No suspicious osseous lesions. Normal cord signal. No intradural mass or lesion. T1-2: Disc degeneration shallow posterior disc bulge. No spinal canal neural foraminal narrowing. T2-3: Disk degeneration. No spinal canal or neural foraminal narrowing. T3-4: Disc degeneration. Central disc protrusion measures approximately 3 mm in short axis. Mild narrowing of the spinal canal. No neural foraminal narrowing. T6-7: Disc degeneration and posterior disc bulge. No spinal canal neural foraminal narrowing. T7-8: Disc degeneration and left paracentral disc protrusion or disc osteophyte complex measured approximately 3 mm in short axis. Effacement of the left ventral aspect of thecal sac. No narrowing of spinal canal. No neural foraminal narrowing. T8-9: Disc degeneration. Posterior disc bulge. No spinal canal or neural foraminal narrowing. T9-10: Disc degeneration and posterior disc bulge. No spinal canal neural foraminal narrowing. No spinal canal or neural foraminal narrowing at remaining levels of the thoracic spine. Normal paraspinal soft tissues. IMPRESSION: 1. Normal alignment. No fractures 2. Normal cord signal. Thoracic spondylosis 3. At T3-4, central disc protrusion. Mild narrowing of the spinal canal 4. At T7-8, left paracentral disc protrusion or disc osteophyte complex. No narrowing of the spinal canal. No neural foraminal narrowing. 5. No spinal canal or neural foraminal narrowing at the remaining levels Dictated by Emile Tapia MD @ 07/13/2025 11:21:55 AM (Electronically Signed)
--- NOTE | 2025-07-13 09:45 | CRLHL7_ITS ---
For Patients: As a result of the Century Cures Act, medical imaging exams and procedure reports are released immediately into your electronic medical record. You may view this report before your referring provider. If you have questions, please contact your health care provider. INDICATION: Chronic low back pain. COMPARISON: None. TECHNIQUE: Sagittal T1, T2, and STIR sequences. Axial T1 and T2 weighted sequences. FINDINGS: Degenerative grade 1 anterolisthesis of L3 on L4 on L4 on L5 measures approximately 3 mm. Otherwise, normal alignment. No fractures. No vertebral body loss of height. No ligamentous injury. No suspicious osseous lesions. Normal conus terminates at L1-2. Marrow edema of the articular processes of the bilateral L4-5 facet joint which may be secondary to stress reaction or inflammation from facet arthritis. T12-L1 L1-2: No spinal canal neural foraminal narrowing. L2-3: Disc degeneration. Right paracentral disc protrusion measures 7 mm in diameter with 11 mm of cephalad migration. Mild narrowing of spinal canal. No neural foraminal narrowing. L3-4: Disc generation posted disc bulge. Mild narrowing of spinal canal. No neural foraminal narrowing. L4-5: Grade 1 anterolisthesis. Disc degeneration posterior disc bulge. Mild narrowing of the spinal canal. There is a small left foraminal disc extrusion measuring approximately 5 mm in diameter with 5 mm of cephalad migration. Results in moderate narrowing of the left neural foramen. No narrowing of the right neural foramen. Mild facet arthropathy. L5-S1: Disc degeneration. Posterior disc bulge. No narrowing of the spinal canal. No impingement of the traversing S1 nerve roots. Mild narrowing of the left neural foramen. No narrowing of the right neural foramen. Normal visualized SI joints. Normal paraspinal soft tissues. IMPRESSION: 1. Degenerative grade 1 anterolisthesis of L3 on L4 and L4 on L5. Otherwise normal alignment. No fractures 2. Marrow edema of the articular processes of the bilateral L4-5 facet joints which may be secondary to stress reaction or inflammation 3. At L2-3, right paracentral disc protrusion with cephalad migration. Mild narrowing of the spinal canal. 4. At L4-5, small left foraminal disc extrusion. Moderate narrowing of the left neural foramen 5. No spinal canal or neural foraminal narrowing at the remaining levels Dictated by Emile Tapia MD @ 07/13/2025 11:34:35 AM (Electronically Signed)
== END 2025-07-13 08:09 | disposition home or self-care (01) ==
LOC: MRI 08:09
PROVIDERS: PCP Family Medicine; Visit Provider Physician Assistant Medical
DX: M50.223 Other cervical disc displacement at C6-C7 level (principal); M50.221 Other cervical disc displacement at C4-C5 level; M51.24 Other intervertebral disc displacement, thoracic region; M54.41 Lumbago with sciatica, right side; M51.26 Other intervertebral disc displacement, lumbar region; M47.812 Spondylosis without myelopathy or radiculopathy, cervical region
CPT/HCPCS: 72141; 72146; 72148

== ENCOUNTER 2025-07-25 11:23 | Outpatient (CLI) | payer MEDICARE, BC, SELFPAY ==
--- NOTE | 2025-07-25 11:30 | CRLHL7_ITS ---
For Patients: As a result of the Century Cures Act, medical imaging exams and procedure reports are released immediately into your electronic medical record. You may view this report before your referring provider. If you have questions, please contact your health care provider. BILATERAL DIGITAL SCREENING MAMMOGRAM WITH COMPUTER-AIDED DETECTION AND TOMOSYNTHESIS CLINICAL HISTORY: Routine screening exam. COMPARISON: 02/23/2024, 12/17/2022, 07/31/2021. TECHNIQUE: Digital mammogram in CC and MLO projections including computer-aided detection (CAD). Tomosynthesis was used in this interpretation. BREAST COMPOSITION: There are scattered areas of fibroglandular density. FINDINGS: RIGHT Breast: No suspicious findings. LEFT Breast: Nodular density within the lateral left breast, 6 cm from the nipple. IMPRESSION: LEFT breast asymmetry/mass. RECOMMENDATIONS: Additional mammographic views of the LEFT breast including 3D spot-compression CC/MLO. LEFT breast ultrasound may also be required. The [facility] will contact the patient for follow-up. A lay language report of this examination will be provided to the patient. BI-RADS Category 0: Incomplete: Need Additional Imaging Evaluation Dictated by Darius Almendarez MD @ 07/25/2025 12:12:09 PM /sp SP/Dictated by: Darius Almendarez MD @ 07/25/2025 12:12:00 PM (Electronically Signed)
== END 2025-07-25 11:24 | disposition home or self-care (01) ==
LOC: MAMMO 11:24
PROVIDERS: PCP Family Medicine; Visit Provider Family Medicine
DX: Z12.31 Encounter for screening mammogram for malignant neoplasm of breast (principal); N63.20 Unspecified lump in the left breast, unspecified quadrant
CPT/HCPCS: 77063; 77067

== ENCOUNTER 2025-07-27 07:22 | Outpatient (CLI) | payer MEDICARE, BC, SELFPAY ==
--- NOTE | 2025-07-27 07:45 | CRLHL7_ITS ---
For Patients: As a result of the Cures Act, medical imaging exams and procedure reports are released immediately into your electronic medical record. You may view this report before your referring provider. If you have questions, please contact your health care provider. DIGITAL DIAGNOSTIC LEFT BREAST MAMMOGRAM WITH TOMOSYNTHESIS CLINICAL HISTORY: LEFT breast mass/asymmetry. COMPARISON: 07/25/2025, 02/23/2024, 12/17/2024. TECHNIQUE: Digital LEFT mammogram in 2 projections. Tomosynthesis was used in this interpretation. Real-time ultrasound imaging of LEFT breast with imaging documentation. BREAST COMPOSITION: There are scattered areas of fibroglandular density. FINDINGS: 3D spot compression CC/MLO LEFT breast mammogram images submitted. Persistent nodular density with irregular margins within the lateral LEFT breast. No suspicious calcifications. Targeted LEFT breast ultrasound performed. At 2 o`clock 7 cm from the nipple there is a hypoechoic solid mass with irregular margins measuring 13 x 13 x 14 millimeters. A normal-appearing LEFT axillary lymph node is present measuring 17 x 6 x 11 millimeters with the cortex measuring 1 millimeter. IMPRESSION: Suspicious mass LEFT breast 2 o`clock 7 cm from the nipple measuring 13 x 13 x 14 millimeters. Normal LEFT axillary lymph node. RECOMMENDATIONS: Ultrasound-guided core needle biopsy recommended of the breast lesion. A lay language report of this examination will be provided to the patient. BI-RADS Category 4. Suspicious. Dictated by Darius Almendarez MD @ 07/27/2025 10:18:54 AM TIMOTEO/elvin DW/Dictated by: Darius Almendarez MD @ 07/27/2025 10:18:00 AM (Electronically Signed)
--- NOTE | 2025-07-27 08:15 | CRLHL7_ITS ---
For Patients: As a result of the Century Cures Act, medical imaging exams and procedure reports are released immediately into your electronic medical record. You may view this report before your referring provider. If you have questions, please contact your health care provider. Please see digital diagnostic LEFT breast mammogram done the same day for combined report. DSM:elvin 07/27/2025 DW/Dictated by: Darius Almendarez MD @ 07/27/2025 10:15:00 AM (Electronically Signed)
== END 2025-07-27 07:23 | disposition home or self-care (01) ==
LOC: MAMMO 07:23
PROVIDERS: PCP Family Medicine; Visit Provider Family Medicine
DX: N63.20 Unspecified lump in the left breast, unspecified quadrant (principal); R92.8 Other abnormal and inconclusive findings on diagnostic imaging of breast
CPT/HCPCS: 76642; 77065; G0279

== ENCOUNTER 2025-08-02 07:59 | Outpatient (CLI) | payer MEDICARE, BC, SELFPAY ==
--- NOTE | 2025-08-02 08:15 | CRLHL7_ITS ---
For Patients: As a result of the Century Cures Act, medical imaging exams and procedure reports are released immediately into your electronic medical record. You may view this report before your referring provider. If you have questions, please contact your health care provider. ULTRASOUND-GUIDED LEFT BREAST BIOPSY AND POST-BIOPSY DIGITAL MAMMOGRAM FOR BIOPSY MARKER PLACEMENT CLINICAL HISTORY: Suspicious nodule. COMPARISON STUDIES: 07/27/2025. TECHNIQUE: Real-time ultrasound with image documentation was used for targeting the breast lesion. Core biopsy specimens were obtained using an automated gun with an 18-gauge biopsy needle. Post-biopsy CC and ML digital mammograms were obtained to document position of the biopsy marker. CONSENT and TIME OUT: The procedure, risks, and alternatives were explained to the patient and a consent was signed. [place] Protocol was followed including pre-procedure verification that relevant information/documentation was available, reviewed and properly matched to the patient; consent accurate and complete; and equipment and supplies available. Time Out was conducted just prior to starting procedure to verify the four required elements: patient identity, correct side/site marked (if applicable), procedure, relevant images/results properly labeled and displayed (if applicable). PROCEDURE: The patient was positioned supine on the ultrasound table. The breast was prepped with ChloraPrep. 8 cc of 1 percent lidocaine used for local anesthesia. Core samples were obtained. A sterile metal biopsy clip was placed percutaneously to cy the lesion position within the breast. The specimens were placed in 10% formalin and sent to the pathology department. Pressure was held on the biopsy site until all bleeding subsided. The skin incision was closed with Steri-Strips. An ice pack was positioned over the biopsy site. Post-biopsy instructions were reviewed with the patient, and a written copy was given to her. LATERALITY: LEFT breast. LESION: Solid hypoechoic nodule measures 13 x 13 x 14 mm at 2 o`clock, 7 cm from the nipple. SUSPICION FOR MALIGNANCY: High. NUMBER OF SAMPLES: 5. BIOPSY CLIP SHAPE: Oval. PROXIMITY OF CLIP TO TARGET: Within/immediately adjacent to the lesion. IMPRESSION: Ultrasound-guided breast biopsy. When the pathology report is available, an addendum to this report will be made. ACR not applicable Dictated by Darius Almendarez MD @ 08/02/2025 11:38:26 AM /sp SP/Dictated by: Darius Almendarez MD @ 08/02/2025 11:38:00 AM (Electronically Signed)
--- NOTE | 2025-08-02 09:00 | CRLHL7_ITS ---
For Patients: As a result of the Century Cures Act, medical imaging exams and procedure reports are released immediately into your electronic medical record. You may view this report before your referring provider. If you have questions, please contact your health care provider. PLEASE SEE LEFT ULTRASOUND-GUIDED BIOPSY OF SAME DAY. CRL:sp SP/Dictated by: Darius Almendarez MD @ 08/02/2025 11:36:00 AM (Electronically Signed)
== END 2025-08-02 08:00 | disposition home or self-care (01) ==
LOC: US 08:01
PROVIDERS: PCP Family Medicine; Visit Provider Family Medicine
DX: N63.20 Unspecified lump in the left breast, unspecified quadrant (principal); C50.912 Malignant neoplasm of unspecified site of left female breast; R92.8 Other abnormal and inconclusive findings on diagnostic imaging of breast
CPT/HCPCS: 19083; 77065; 88305; 88360; 88361; A4648; A4649

== ENCOUNTER 2025-08-30 07:46 | Day surgery (SDC) | payer MEDICARE, BC, SELFPAY ==
[2025-08-30] VITALS (7 sets, daily range): BP systolic 117–158; BP diastolic 73–88; PULSE 51–72; RESP 16; TEMP 36.3–36.7; O2SAT 96–98; BMI 26.6
--- NOTE | 2025-08-30 09:00 | CRLHL7_ITS ---
For Patients: As a result of the Century Cures Act, medical imaging exams and procedure reports are released immediately into your electronic medical record. You may view this report before your referring provider. If you have questions, please contact your health care provider. Indication: Patient with history of left breast infiltrating ductal carcinoma, referred for pre-biopsy injection of a sentinel lymph node for localization. Technique: 1.1 MilliCuries of [id number] Sulfur Colloid was administered into the left breast by Dr. Marie Nuñez. The patient will be subsequently transferred to the operating room, where intraoperative gamma probe localization will be performed for identification of the sentinel lymph node. Findings and Impression: Diagnostic injection prior to sentinel lymph node biopsy. Dictated by Chao Mendez MD @ 09/06/2025 6:20:32 PM (Electronically Signed)
--- NOTE | 2025-08-30 09:15 | CRLHL7_ITS ---
For Patients: As a result of the Century Cures Act, medical imaging exams and procedure reports are released immediately into your electronic medical record. You may view this report before your referring provider. If you have questions, please contact your health care provider. BREAST WIRE LOCALIZATION USING ULTRASOUND GUIDANCE CLINICAL HISTORY: LEFT breast cancer. LATERALITY: LEFT breast. LESION: 13 x 13 x 14 mm solid nodule LEFT breast 2 o`clock 7 cm from the nipple. LOCALIZATION WIRE: [place] hookwire. TECHNIQUE: The localization wire was placed using real-time ultrasound guidance with image documentation. Cranial-caudal and medial-lateral digital mammograms were obtained after localization wire placement. CONSENT and TIME OUT: The procedure, risks, and alternatives were explained to the patient and a consent was signed. [place] Protocol was followed including pre-procedure verification that relevant information/documentation was available, reviewed and properly matched to the patient; consent accurate and complete; and equipment and supplies available. Time Out was conducted just prior to starting procedure to verify the four required elements: patient identity, correct side/site marked (if applicable), procedure, relevant images/results properly labeled and displayed (if applicable). PROCEDURE: The skin was prepped with ChloraPrep and 8 cc of 1% lidocaine was injected for local anesthesia. The localization wire was placed within or near the targeted breast lesion using ultrasound guidance. The patient tolerated the procedure well. PROXIMITY OF WIRE TO LESION: The wire is present within the lesion adjacent to the clip. IMPRESSION: Successful breast wire localization. ACR not applicable Dictated by Darius Almendarez MD @ 08/30/2025 11:47:10 AM jj/Dictated by: Darius Almendarez MD @ 08/30/2025 11:47:00 AM (Electronically Signed)
--- NOTE | 2025-08-30 10:14 | CRLHL7_ITS ---
For Patients: As a result of the Century Cures Act, medical imaging exams and procedure reports are released immediately into your electronic medical record. You may view this report before your referring provider. If you have questions, please contact your health care provider. SEE ULTRASOUND-GUIDED LEFT BREAST MAGNETIC SEED LOCALIZATION PERFORMED SAME DAY CRL:ellis corral/Dictated by: Darius Almendarez MD @ 08/30/2025 11:47:00 AM (Electronically Signed)
--- NOTE | 2025-08-30 10:27 | SUR.PREOP ---
Ultrasound here to take pt to Ultrasound
[2025-08-30] MEDS: LACTATED RINGERS 1000 ML 1,000 ML 100 ML IV (11:05)
[2025-08-30] MEDS: SODIUM CHLORIDE 0.9 % (FLUSH) 10 ML SYRINGE IVF (11:05)
--- NOTE | 2025-08-30 12:12 | W.PM.H&PU_ITS ---
History & Physical Update History & Physical Update H&P Reviewed and patient assessed: The following changes are noted below H&P Updates: Ninoska has elected since our visit to proceed with sentinel lymph node biopsy. She is hoping that she can omit radiation safely with a favorable pa thology report. She understands though that radiation may be recommended whether not she has positive lymph nodes; this will be a discussion with her and the radiation oncologist.
--- NOTE | 2025-08-30 12:14 | PM.GSPRC ---
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 Left breast lumpectomy with preoperative wire localization 2. Left axillary sentinel lymph node biopsy Indications: The patient is a 69-year-old female who underwent screening mammogram and was found to have a mass in her left breast. She underwent biopsy and this returned as a grade 1 invasive ductal carcinoma, ERPR positive, HER2 negative. After discussion of options, she elected to proceed with lumpectomy as well as sentinel lymph node biopsy. Procedure Description: After discussing the risks and benefits of the procedure, the patient signed informed consent.? The operative site was marked and the patient was brought to the operating room and placed on the operating table in supine position.? Care was taken to pad the patient's pressure points.?? The patient was then given sedation by anesthesia.?? The operative site was then prepped and draped in the usual sterile fashion.? A time-out was then performed. Prior to the incision, I injected technetium 99 filtered sulfur colloid into the dermis above the right areola. This was then massaged to promote lymphatic drainage for 5 min. Ten min prior to the incision, I injected 2 mL Isosulfan blue dye into the same location. This was then massaged for 5 min. Once this was completed, the left breast and axilla were prepped and draped sterilely. A time-out was then completed. Given the location of the lesion, I elected to create a lateral curvilinear incision overlying the mass. This was done after the injection of local anesthetic. Dissection was taken into the subcutaneous fat and the wire was encountered. This was pulled into the incision. I then dissected out a swath of breast tissue around the wire, taking my dissection down to the chest wall. Once this was done, the specimen was removed and inked for orientation. It was sent to mammography followed by pathology for margin examination. Attention was then turned to the sentinel lymph node biopsy. At this point it had been 50 minutes since injection of technetium. The probe was brought into the field. A strong signal was noted and dissection was taken down through the clavipectoral fascia into the axillary fat. The probe was used to identify a blue node and this was carefully dissected free of the surrounding fat using cautery. The signal was measured ex vivo and was found to be 715. There tissue immediately adjacent to this which appeared node-like. This was not blue and did not have a signal, however it was dissected free and sent with the sentinel lymph nodes. The probe was placed back into the wound bed and additional signal was noted. A 3rd node was identified. This was dissected from the axillary fat carefully and removed. It was measured ex vivo. The signal was 613. The probe was placed back into the axilla and there was still signal noted greater than 10% of the note value. I identified an additional node. This was carefully dissected from the surrounding axillary fat. This node wound measured 1500 ex vivo. This node was not blue. There were no suspicious nodes and no further blue nodes or lymphatic channel identified. The probe was placed back into the axilla and there was no additional signal. At this time the specimen imaging returned showing the clip and the wire within the specimen. Pathology also called into the room to state that the margins appeared to be widely negative. After ensuring excellent hemostasis, I 1st closed the clavipectoral fascia followed by the dermis with 3-0 Vicryl. The skin was then closed with a running 4-0 Monocryl subcuticular suture. I then examined the lumpectomy cavity. There was no bleeding noted. I did undermine tissue in all 4 directions to help close the space created by the lumpectomy. This was done at the level the fascia and the subcutaneous tissue. Once this was done and hemostasis appeared adequate, I placed clips in the lumpectomy bed. Alessandra was placed into the lumpectomy bed. The wound was then closed with 3-0 Vicryl dermal and 4-0 Monocryl running subcuticular sutures. Sterile dressings were then applied. ? The patient was then woken and transported to the recovery area in stable condition. ? The patient tolerated the procedure well. Findings: 1. Lumpectomy specimen containing clip and wire as well as the mass 2. 3 sentinel lymph nodes and 1 additional node found. Anesthesia: MAC Surgeon: Marie Nuñze MD Estimated blood loss (mL): 10 Specimen: Other Additional Specimen Information: 1. Left breast lumpectomy 2. Left axillary sentinel lymph nodes Condition: stable Disposition: same day [place] Node Biopsy for Breast Cancer Operation Performed with Curative Intent: Yes Tracers used to Identify sentinel nodes in the upfront surgery (non-neoadjuvant) setting: Dye and Radioactive Tracer Tracers used to identify sentinel nodes in the neoadjuvant setting: N/A All nodes (colored or non-colored) present at the end of a dye filled lymphatic channel were removed: Yes All significantly radioactive nodes were removed: Yes All palpably suspicious nodes were removed: Yes Biopsy proven positive nodes marked with clips prior to chemotherapy were identified and removed: Not Applicable
[2025-08-30] MEDS: ISOSULFAN BLUE 5 ML VIAL INJECTION (12:50)
[2025-08-30] MEDS: LIDOCAINE 1% MDV 20 ML INJECTION (13:00)
[2025-08-30] MEDS: BUPIVACAINE 0.25% 30 ML INJECTION (13:00)
--- NOTE | 2025-08-30 13:29 | CRLHL7_ITS ---
For Patients: As a result of the Cures Act, medical imaging exams and procedure reports are released immediately into your electronic medical record. You may view this report before your referring provider. If you have questions, please contact your health care provider. LEFT BREAST DIAGNOSTIC MAMMOGRAM SPECIMEN WITH COMPUTER-AIDED DETECTION CLINICAL HISTORY: Breast cancer. COMPARISON: 08/30/2025. FINDINGS: Two views of the LEFT breast specimen submitted. Specimen contains the biopsied mass, the biopsy clip and the localization wire. IMPRESSION: Specimen contains the localization wire, biopsy clip and biopsied mass. ACR not applicable. Dictated by Darius Almendarez MD @ 08/30/2025 4:33:49 PM /sp SP/Dictated by: Darius Almendarez MD @ 08/30/2025 4:33:00 PM (Electronically Signed)
--- NOTE | 2025-08-30 14:24 | P.ANES_ITS ---
Anesthesia Charges Start Date/Time Anesthesia Start Date: 08/30/25 Anesthesia Start Time: 12:39 Stop Date/Time Anesthesia Stop Date: 08/30/25 Anesthesia Stop Time: 14:22 Summary Extremes of Age - Over 70 or under 1: SECURITY COORDINATOR Coding CPT Codes CPT Codes: ANESTH SKIN EXT/PER/ATRUNK - 77484 ([id number]) P3 - PATIENT W/SEVERE SYS DISEASE, QZ - SECURITY COORDINATOR SVC W/O PERSONNEL ADMINISTRATOR BY Additional Codes: Summary - Extremes of Age - Over 70 or under 1: SECURITY COORDINATOR ([id number])
--- NOTE | 2025-08-30 14:24 | W.ANESCHARGE ---
Anesthesia Charges Start Date/Time Anesthesia Start Date: 08/30/25 Anesthesia Start Time: 12:39 Stop Date/Time Anesthesia Stop Date: 08/30/25 Anesthesia Stop Time: 14:22 Summary Extremes of Age - Over 70 or under 1: SOLAR SALES Coding CPT Codes CPT Codes: ANESTH SKIN EXT/PER/ATRUNK - 04983 ([id number]) P3 - PATIENT W/SEVERE SYS DISEASE, QZ - SOLAR SALES SVC W/O BILLET HEADER BY Additional Codes: Summary - Extremes of Age - Over 70 or under 1: SOLAR SALES ([id number])
[2025-08-30] MEDS: HYDROCODONE-ACETAMIN 5-325 MG 1 TAB PO (15:05)
== END 2025-08-30 15:55 | disposition home or self-care (01) ==
PROVIDERS: PCP Family Medicine; Visit Provider Surgery
PROC: (CPT 19301; principal; 2025-08-30 12:00)
PROC: (CPT 19301; 2025-08-30 12:00)
PROC: (CPT 19301; 2025-08-30 12:00)
DX: C50.412 Malignant neoplasm of upper-outer quadrant of left female breast (principal); Z17.0 Estrogen receptor positive status [ER+]; Z17.21 Progesterone receptor positive status; Z17.32 Human epidermal growth factor receptor 2 negative status
CPT/HCPCS: 19301; 38525; 00400; 19285; 38792; 76942; 77065; 88307; 99100; J2003; A9270; A9541; C1769; G0279; J0665; J0690; J2250; J2405; J2704; J3010; J7120